=== PATIENT | female | born 1965 | race Hispanic/Latino ===

== ENCOUNTER 2019-02-12 01:03 | Inpatient (IN) | payer BC ==
[2019-02-12] VITALS (16 sets, daily range): BP systolic 78–156; BP diastolic 48–81
[~2019-02-12] VITALS: Ht 154.9 cm; Wt 69.9 kg
[2019-02-12] MEDS ORDERED: ACETAMINOPHEN 650 MG SUPP PR PRN (02:30)
[2019-02-12] MEDS ORDERED: XIGDUO (03:08)
[2019-02-12] MEDS ORDERED: vascepa (03:08)
[2019-02-12] MEDS ORDERED: LISINOPRIL2.5 MG PO (03:08)
[2019-02-12] MEDS ORDERED: ATORVASTATIN CA20 MG PO (03:08)
--- NOTE | 2019-02-12 03:14 | NUR ---
patient came from [facility], alert oriented but lethargic. daughter came with patient and ambulance staffs. left AC IV access and Maharaj cath in place. complained of left lower quadrant pain when she arrived. blood sugar checked was 156. daughter stated she could not hold any food or drink so far and she threw up every time she tries to eat. no skin breakdown noted. called Sparkle Fernandez [employer] as patient arrived, orders received.
[2019-02-12] MEDS: SODIUM CHLORIDE 0.9% 1000ML 1,000 ML IV SCH ×2 (03:30→16:35)
[2019-02-12 04:47] LABS: BASOPHILS # (AUTO) 0.1 (0.0-0.1); BASOPHILS % 0.5 % (0.0-1.0); EOSINOPHILS % 0.2 % (0.0-6.0); HEMATOCRIT 27.4 % (34.2-44.1); HEMOGLOBIN 9.4 g/dL (12.0-16.0); LYMPHOCYTES # (AUTO) 1.5 (1.0-3.2); LYMPHOCYTES % 6.3 % (18.0-39.1); MEAN CORPUSCULAR HEMOGLOBIN 28.1 pg (28-32); MEAN CORPUSCULAR HGB CONC 34.3 g/dL (31-35); MEAN CORPUSCULAR VOLUME 81.8 fL (81-99); MONOCYTES # (AUTO) 0.7 (0.2-0.8); NEUTROPHILS # (AUTO) 20.7 (2.1-6.9); NEUTROPHILS % 89.2 % (38.7-80.0); PLATELET COUNT 60 x10e3/uL (140-360); RED BLOOD COUNT 3.35 x10e6/uL (3.6-5.1); RED CELL DISTRIBUTION WIDTH 12.7 % (11.7-14.4)
[2019-02-12 05:11] LABS: ANION GAP 17.7 mmol/L (8-16); CALCIUM 7.8 mg/dL (8.4-10.2); CREATININE, SERUM 1.53 mg/dL (0.57-1.11); POTASSIUM 3.7 mmol/L (3.5-5.1)
[2019-02-12] MEDS: ONDANSETRON HCL INJ 2MG/ML 2ML 2 MG/ML VIAL IV PRN (06:01)
--- NOTE | 2019-02-12 07:00 | NUR ---
Renetta Fernandez NP called and gave orders. orders carried out.
[2019-02-12] MEDS ORDERED: MEROPENEM 500 MG VIAL ONE (09:16)
[2019-02-12] MEDS ORDERED: SODIUM CHLORIDE 0.9% 50ML 50 ML ONE (09:16)
[2019-02-12] MEDS: MEROPENEM 500MG/ NS 50ML 50 ML IV SCH ×3 (09:21→22:00)
--- NOTE | 2019-02-12 10:45 | NUR ---
PT COMPLAINS OF INCREASED NAUSEA AND VOMITING, NOTIFIED MD RECEIVED ORDERS
[2019-02-12] MEDS ORDERED: LANTUS 3ML100 UNITS/ SC (11:04)
[2019-02-12] MEDS: PROMETHAZINE 12.5MG/ NACL 0.9% 12.5 MG/50 ML BAG IV PRN (11:08)
--- NOTE | 2019-02-12 11:30 | NUR ---
SPOKE TO DANNY OLIVERA NOTIFIED OF PATIENT HR GOING FROM 130 TO 150'S, FEVER AND NAUSEA RECEIVED ORDERS WILL CONTINUE TO MONITOR CLOSELY
[2019-02-12] MEDS: METOPROLOL TARTRATE INJ 1 MG/ML VIAL IV PRN (11:57)
--- NOTE | 2019-02-12 13:23 | Diagnostic Imaging Report ---
EXAMINATION: CHEST SINGLE (PORTABLE) INDICATION: ^FEVER ^[id number] ^1255 COMPARISON: None FINDINGS: AP view TUBES and LINES: None. LUNGS: Lungs are well inflated. Diffuse bilateral reticulation of the lungs mainly in the posterior lung bases and perihilar region. PLEURA: No pleural effusion or pneumothorax. HEART AND MEDIASTINUM: The cardiomediastinal silhouette is unremarkable.. BONES AND SOFT TISSUES: No acute osseous lesion. Soft tissues are unremarkable. UPPER ABDOMEN: No free air under the diaphragm. IMPRESSION: Radiographic findings may represent bilateral atypical pneumonia in this patient with fever. Interstitial edema can have a similar appearance. Signed by: Dr. Anita Bush M.D. on 02/12/2019 1:19 PM
--- NOTE | 2019-02-12 14:09 | NUR ---
CONSULT CALLED FOR , CALL BACK REQUESTED SPOKE TO RE'NAN
--- NOTE | 2019-02-12 14:52 | Diagnostic Imaging Report ---
EXAM: CT Abdomen and Pelvis WITHOUT contrast INDICATION: ^ABD PAIN/ STONE PROTOCOL ^[id number] ^1320 COMPARISON: Chest radiograph 02/12/2019 TECHNIQUE: Abdomen and pelvis were scanned utilizing a multidetector helical scanner from the lung base to the pubic symphysis without administration of IV contrast. Absence of intravenous contrast decreases sensitivity for detection of focal lesions and vascular pathology. Coronal and sagittal reformations were obtained. Routine protocol was performed. IV CONTRAST: None. ORAL CONTRAST: Water RADIATION DOSE: Total DLP: 421.3 mGy*cm Estimated effective dose: (DLP x 0.015 x size factor) mSv COMPLICATIONS: None FINDINGS: LINES and TUBES: None. LOWER THORAX: Small bilateral pleural effusions. Bilateral interstitial edema. No consolidations or centrilobular nodules to suggest infection. HEPATOBILIARY: No focal hepatic lesions. No biliary ductal dilation. GALLBLADDER: No radio-opaque stones or sludge. No wall thickening. SPLEEN: No splenomegaly. PANCREAS: No focal masses or ductal dilatation. ADRENALS: No adrenal nodules KIDNEYS/URETERS: The right kidney is normal in size and density without hydronephrosis or calcified stones. There is swelling of the left kidney with associated mild hydroureteronephrosis. No calcified stones are visualized. GI TRACT: No abnormal distention, wall thickening, or evidence of bowel obstruction. Appendix is normal. PELVIC ORGANS/BLADDER: Maharaj catheter within a decompressed urinary bladder. LYMPH NODES: No lymphadenopathy. VESSELS: Unremarkable. PERITONEUM / RETROPERITONEUM: No free air. Small amount of low attenuation free fluid in the pelvis. BONES: Unremarkable. SOFT TISSUES: Diffuse anasarca. IMPRESSION: 1. Bilateral interstitial edema, small pleural effusions, small ascites and anasarca consistent with volume overload. 2. No findings to suggest infection in the lung bases. 3. Swelling of the left kidney with associated hydroureteronephrosis without visualized obstructing calcified stones. This may reflect infection. 4. The compressed gallbladder without containing calcified stones or wall thickening. Signed by: Dr. Anita Bush M.D. on 02/12/2019 2:49 PM
--- NOTE | 2019-02-12 18:48 | NUR ---
SPOKE TO REGARDING EPISODE OF PT HYPOTENSION AND TACHYCARDIA. RECEIVED ORDERS WILL CONTINUE TO MONITOR
[2019-02-12] MEDS ORDERED: SODIUM CHLORIDE 0.9% 1000ML 1,000 ML IV ONE (19:30)
[2019-02-12] MEDS ORDERED: MORPHINE SULFATE INJ 4 MG/ML INJ 1ML IV ONE (22:45)
[2019-02-12] MEDS ORDERED: MORPHINE SULFATE INJ 4 MG/ML INJ 1ML ONE (22:48)
--- NOTE | 2019-02-12 23:59 | Diagnostic Imaging Report ---
EXAM: HIDA Scan with Morphine Challenge INDICATION: Abdominal pain Report: Following the administration of 6 mCi of Tc-99m mebrofenin, dynamic images of the abdomen in the anterior projection were obtained through 60 minutes. Morphine sulfate 2 mg was administered intravenously and additional images were obtained through 30 minutes. Perfusion of the liver is normal. Extraction of tracer from the blood pool by the liver parenchyma is normal. Tracer appears promptly with in the biliary tract. Tracer is seen in the small bowel by approximately 20 minutes post injection of the tracer. The gallbladder does not fill during the initial 60 minutes of imaging but does fill following administration of morphine. Impression: Filling of the gallbladder excludes acute cystic duct obstruction/acute cholecystitis. Signed by: Dr. Clay Amaral MD on 02/12/2019 11:56 PM
[2019-02-13] VITALS (19 sets, daily range): BP systolic 77–151; BP diastolic 52–94
[2019-02-13] MEDS: MEROPENEM 500MG/ NS 50ML 50 ML IV SCH ×4 (03:27→22:11)
--- NOTE | 2019-02-13 05:42 | NUR ---
patient awaken, she able to eat an apple without complaining of nausea/vomiting. vitals within normal level, no distress noted.
[2019-02-13] MEDS ORDERED: DEXTROSE 50% SYRINGE 50 ML IV PRN (08:15)
[2019-02-13 08:22] LABS: BASOPHILS # (AUTO) 0.1 (0.0-0.1); BASOPHILS % 0.3 % (0.0-1.0); EOSINOPHILS % 0.1 % (0.0-6.0); HEMATOCRIT 27.2 % (34.2-44.1); HEMOGLOBIN 9.2 g/dL (12.0-16.0); LYMPHOCYTES # (AUTO) 1.4 (1.0-3.2); LYMPHOCYTES % 7.1 % (18.0-39.1); MEAN CORPUSCULAR HEMOGLOBIN 28.1 pg (28-32); MEAN CORPUSCULAR HGB CONC 33.8 g/dL (31-35); MEAN CORPUSCULAR VOLUME 83.2 fL (81-99); MONOCYTES # (AUTO) 1.2 (0.2-0.8); MONOCYTES % 5.8 % (4.4-11.3); NEUTROPHILS # (AUTO) 16.7 (2.1-6.9); NEUTROPHILS % 83.6 % (38.7-80.0); PLATELET COUNT 55 x10e3/uL (140-360); RED BLOOD COUNT 3.27 x10e6/uL (3.6-5.1); RED CELL DISTRIBUTION WIDTH 13.2 % (11.7-14.4)
[2019-02-13] MEDS: SODIUM CHLORIDE 0.9% 1000ML 1,000 ML IV SCH ×2 (08:36→19:30)
[2019-02-13 08:49] LABS: ANION GAP 17.3 mmol/L (8-16); CALCIUM 8.4 mg/dL (8.4-10.2); CREATININE, SERUM 1.04 mg/dL (0.57-1.11); POTASSIUM 3.3 mmol/L (3.5-5.1)
[2019-02-13 09:22] LABS: FERRITIN 745.62 ng/mL (4.63-204.00)
[2019-02-13] MEDS: INSULIN LISPRO 100 UNIT/1 ML 3ML VIAL SQ SCH ×3 (11:26→22:10)
[2019-02-13] MEDS ORDERED: MIDAZOLAM HCL 2 MG/2 ML VIAL ONE (12:17)
[2019-02-13 12:40] LABS: NEUTROPHILS % (MANUAL) 83 % (40-74)
[2019-02-13 12:41] LABS: BAND NEUTROPHILS % (MANUAL) 3 %; LYMPHOCYTES % (MANUAL) 9 % (19-48); MONOCYTES % (MANUAL) 4 % (3.4-9.0)
[2019-02-13 12:42] LABS: PLATELET ESTIMATE MODERATELY DECREASED; PLATELET MORPHOLOGY COMMENT NORMAL
[2019-02-13 12:43] LABS: BURR CELLS MODERATE; RBC MORPHOLOGY COMMENT ABNORMAL
[2019-02-13] MEDS ORDERED: POTASSIUM CHLORIDE 10MEQ EA PO ONE (13:00)
[2019-02-13] MEDS: ONDANSETRON HCL INJ 2MG/ML 2ML 2 MG/ML VIAL IV PRN (14:24)
[2019-02-13] MEDS ORDERED: BISACODYL 5 MG TAB EC PO ONE ×2 (15:00→15:30)
[2019-02-13] MEDS: ACETAMINOPHEN 325 MG TAB PO PRN (15:20)
--- NOTE | 2019-02-13 15:20 | NUR ---
PT COMPLAINED OF CHILLS TEMP AT 101.2 AT THIS TIME WILL MEDICATE ACCORDING TO MAR
[2019-02-13] MEDS: PROMETHAZINE 12.5MG/ NACL 0.9% 12.5 MG/50 ML BAG IV PRN (15:49)
[2019-02-13] MEDS: METOPROLOL TARTRATE INJ 1 MG/ML VIAL IV PRN (16:15)
--- NOTE | 2019-02-13 16:15 | NUR ---
HR 130-140 PT MEDICATED WITH WITH METOPROLOL WILL MONITOR CLOSELY
[2019-02-13] MEDS: METOCLOPRAMIDE HCL 10 MG/2ML VIAL IV SCH ×2 (16:32→22:11)
--- NOTE | 2019-02-13 16:32 | NUR ---
TEMP RECHECKED AT 101.4, PT WITH WORSENING CHILLS. DANNY HALL SUPERVISOR NOTIFIED OF PATIENT CONDITION , RECEIVED ORDERS.
--- NOTE | 2019-02-13 16:37 | Consultation ---
DATE OF CONSULTATION: 02/13/2019 Cardiology Consultation REASON FOR CONSULTATION: Tachycardia and hypotension. HISTORY OF PRESENT ILLNESS: Mrs. Razo is a 53-year-old female, who reports that she has feeling in great health, however, beginning on last week, she started experiencing left-sided abdominal pain in her left lower and left upper quadrant. For this reason, she went to a freestanding ER on Thursday and after that she was sent to the [facility] ER. She reports that at this moment, she does not have this pain since arriving and being initiated on antibiotics. The reason for our consultation is because she experienced tachycardia yesterday, rates reported to be in the 150s and also was hypotensive after with lowest blood pressure is in the 70s/40s. However, this all has improved after administration of an IV bolus of sodium chloride. She denies any cardiac history. Reports that she only has a pertinent past medical history of diabetes. At this moment, she denies any chest pain, she does endorse some occasional palpitations, denies fever or chills. Denies any nausea or vomiting at this time, however, had nausea and vomiting on and Thursday. Denies any abdominal pain or any other discomfort at this time. PAST MEDICAL HISTORY: Diabetes mellitus type 2, insulin dependent. PAST SURGICAL HISTORY: Three C-sections, hysterectomy due to fibroids. SOCIAL HISTORY: She is . Denies any smoking or illicit drug use. REVIEW OF SYSTEMS: Negative except as mentioned above. PHYSICAL EXAMINATION: VITAL SIGNS: Temperature 98.4, pulse 96, respiratory rate 21, blood pressure 121/69, and oxygen saturation 99% on room air. GENERAL: Alert and oriented x3, resting comfortably in bed, does not appear to be in any acute distress. NECK: Supple. No JVD noted. CARDIOVASCULAR: Regular rate and rhythm. Tachycardic. No murmurs. Normal S1, S2. LUNGS: Clear to auscultation in the upper lobes, diminished breath sounds bilaterally posterior lower bases. ABDOMEN: Soft, nontender. Normoactive bowel sounds. EXTREMITIES: Lower extremities, trace edema bilaterally. CARDIOVASCULAR MEDICATIONS: Metoprolol 2.5 mg q.6 hours p.r.n. for elevated heart rate. LABORATORY DATA: WBC 19.91, hemoglobin 9.2, hematocrit 27.2, platelets 55. Sodium 137, potassium 3.3, BUN 33, creatinine 1.04. BNP 309.6. CT of the abdomen and pelvis with bilateral interstitial edema and small pleural effusions, small ascites and anasarca consistent with volume overload. Swelling of the left kidney with associated hydroureteronephrosis without visualized obstructing calcified stone. Compressed gallbladder without containing calcified stones or wall thickening. Chest x-ray with findings consistent with atypical pneumonia in this patient with fever. HIDA scan with exclusion of acute cystic duct obstruction or acute cholecystitis. Echocardiogram with left ventricular ejection fraction of 58%, no other abnormalities. IMPRESSION: 1. Diabetes mellitus. 2. Tachycardia. 3. Sepsis. 4. Pneumoniae. 5. Thrombocytopenia. 6. Anemia. PLAN: Replace electrolytes. This patient will need ischemic workup as outpatient. Risk factors include age, gender, and also diabetes mellitus. This can wait until the patient has been discharged and has recovered from acute illness. Continue antimicrobial therapy per Infectious Disease and primary team. Maintain on telemetry at all time. Initiate a low-dose beta-angeilka and monitor blood pressure closely. We will continue to follow this patient closely. Thank you for this consultation and allowing us to participate in this patient's care. Dictated by Leonie Hills NP MD ALBERT Parker/REYNALDO /[id number]
[2019-02-13] MEDS ORDERED: FUROSEMIDE INJ 10 MG/ML 4 ML VIAL ONE (16:41)
[2019-02-13] MEDS ORDERED: ACETAMINOPHEN 1000 MG/100 ML IV ONE (17:00)
[2019-02-13] MEDS ORDERED: FENTANYL CITRATE INJ 2,000 MCG in SODIUM CHLORIDE 0.9% 250ML 210 ML IV PRN (17:15)
--- NOTE | 2019-02-13 17:15 | NUR ---
RAPID RESPONSE CALLED PT TO BE INTUBATED, RAPID TEAM AT BEDSIDE
--- NOTE | 2019-02-13 17:15 | NUR ---
PT IN RESP DISTRESS, LABORED BREATHING AND SOB ROUNDING ON PATIENT AT THIS TIME, RECEIVED ORDERS Addendum: 02/13/19 at 4 by Lita Pressley RN TIME AMEND TO 164
--- NOTE | 2019-02-13 17:25 | NUR ---
DANNY SENIOR COMMISSIONS ANALYST NOTIFIED OF PT STATUS
[2019-02-13 17:28] LABS: ABG HCO3 10 mmol/L (23-28); ABG PCO2 22 mmHg (41-51); ABG PH 7.24 (7.31-7.41); ABG PO2 52 mmHg (80-105)
[2019-02-13] MEDS ORDERED: FUROSEMIDE INJ 10 MG/ML 4 ML VIAL IV ONE (17:30)
[2019-02-13] MEDS: VANCOMYCIN 1GM/NS 250 ML 250 ML IV SCH (17:35)
[2019-02-13] MEDS ORDERED: PROPOFOL IV EMULSION 10MG/ML 100 ML ONE (17:50)
--- NOTE | 2019-02-13 17:57 | Diagnostic Imaging Report ---
Examination: Single AP view of the chest. COMPARISON: Portable chest 02/12/2019 INDICATION: Urosepsis, intubation IMPRESSION: 1. Lines and Tubes: Interval placement of endotracheal tube, which has distal tip at the entrance of the right main stem bronchus. Recommend retraction of at least 2 cm.. Interval placement of enteric tube which is noted below the left hemidiaphragm, however, tip is not visualized. 2. Bilateral diffuse interstitial opacities, may reflect interstitial edema. Left retrocardiac opacity and pleural effusion. 3. Cardiomediastinal silhouette is normal. Central pulmonary venous congestion. 4. No acute bony abnormalities. Signed by: Dr. Kennedy Zarate M.D. on 02/13/2019 5:53 PM
[2019-02-13] MEDS ORDERED: NOREPINEPHRINE 8 MG/D5W 250 ML 250 ML ONE (18:17)
[2019-02-13] MEDS: NOREPINEPHRINE 8 MG/D5W 250 ML 250 ML IV SCH (18:17)
--- NOTE | 2019-02-13 18:45 | NUR ---
RAPID RESPONSE CALLED, CENTRAL LINE PLACED
[2019-02-13] MEDS ORDERED: SODIUM CHLORIDE 0.9% 1000ML 1,000 ML IV SCH ×2 (19:15)
--- NOTE | 2019-02-13 19:23 | Consultation ---
DATE OF CONSULTATION: 02/13/2019 Pulmonary Critical Care Consultation CHIEF COMPLAINT: Sepsis and respiratory failure. HISTORY OF PRESENT ILLNESS: The patient is a 53-year-old woman. She has a history of diabetes. She noted some left-sided abdominal pain and fever later this week. She went to the Emergency Department, is found to have a pyelonephritis with a small amount of hydronephrosis. The patient was subsequently admitted to the hospital. She was started on IV antibiotics. A CT scan showed some hydronephrosis, but no visible stone. She continued on antibiotics, but her condition has worsened. She developed pulmonary edema and worsening oxygenation. She required intubation. PAST SURGICAL HISTORY: 1. Status post . 2. Status post hysterectomy. PAST MEDICAL HISTORY: Diabetes. SOCIAL HISTORY: The patient does not smoke. She does not drink. She is currently . ALLERGIES: THE PATIENT HAS NO KNOWN DRUG ALLERGIES. REVIEW OF SYSTEMS: The patient is afebrile. She has no headache. She has no neck pain. She is currently intubated. She did not have chest pain. She did have difficulty breathing. She had no abdominal pain. She had no nausea or vomiting. She had no leg edema. PHYSICAL EXAMINATION: VITAL SIGNS: The patient is afebrile. The blood pressure is 151/94 and the saturation is 100%. She is currently on Levophed as well as propofol. HEENT: Shows no facial swelling or erythema. The oral pharynx is normal. There is an oral endotracheal tube. CARDIAC: Reveals a regular rate and rhythm with normal S1, S2. LUNGS: Auscultation of lungs reveals crackles in both lung kerr. ABDOMEN: Soft, nontender. There is no rebound or guarding. EXTREMITIES: Show no leg edema or calf tenderness. There is no cyanosis or clubbing. SKIN: Shows no rashes. NEUROLOGICAL: Shows no focal abnormalities. RADIOGRAPHIC DATA: Chest x-ray shows bilateral pulmonary infiltrates. LABORATORY DATA: White blood cell count is 19.9 and hemoglobin is 9.2. The platelet count is 55. The BUN to creatinine ratio is 33:1.04 and the potassium is 3.3. The bicarbonate is 14. IMPRESSION: 1. Septic shock secondary to pyelonephritis, present on admission. 2. Acute respiratory failure. 3. Acute respiratory distress syndrome. 4. Anemia secondary to chronic blood loss. 5. Diabetes. PLAN: 1. Continue mechanical ventilation and repeat ABG. 2. Continue current antibiotics. The patient has been seen by ID. 3. Continue intravenous fluids. 4. Wean pressors as needed. 5. Monitor nutritional status. 6. DVT prophylaxis. 7. Case discussed with nursing staff, family, and Infectious Disease. MD ZOE Eugene/REYNALDO /[id number]
--- NOTE | 2019-02-13 19:39 | Diagnostic Imaging Report ---
EXAMINATION: CHEST XRAY LINE PLACEMENT COMPARISON: Chest x-ray 1733 hours INDICATION: Line placement ^CENTRAL LINE PLACEMENT ^[id number] ^1914 DISCUSSION: Frontal view of the chest obtained at 1924 hours. The upper chest is underexposed. The lung apices are not visible. HEART AND MEDIASTINUM: The heart is normal in size LINES: Endotracheal tube terminates approximately 3 cm above the jael. Left IJ catheter terminates in the SVC. Enteric tube extends past the diaphragm. LUNGS: Interstitial edema improved somewhat in the upper lung zones. Retrocardiac airspace disease is similar PLEURA: No pneumothorax on this image. Small pleural effusions are suspected BONES AND SOFT TISSUES: No focal osseous lesion. The soft tissues are normal. IMPRESSION: Suboptimal evaluation of the lung apices for pneumothorax. Support devices as described above. Improved interstitial edema in the upper lung zones. Signed by: Dr. Uriel Romano MD on 02/13/2019 7:36 PM
--- NOTE | 2019-02-13 19:53 | Consultation ---
DATE OF CONSULTATION: 02/13/2019 REASON FOR CONSULTATION: Sepsis. HISTORY OF PRESENT ILLNESS: This patient is 53-year-old female. Apparently, she has been sick for a few days. She went to the outside facility. The patient apparently was diagnosed with UTI and started on antibiotic, but she was not getting any better. She came here, she was transferred here. She is currently in the intensive care unit. The family is at the bedside, but when I walked in the patient was quite short of breath. Her heart rate is in 140s. She is breathing in the high 20s, could not finish a sentence. I immediately gave her Lasix after I got the history that she got 5 L two days ago. Her chest x-ray showed pulmonary edema. I ordered a stat blood gas. Consulted Dr. Rahman. Discussed the case with him over the phone. He is coming to see her, placed the patient on BiPAP. The patient seems to be a bit better now, more stable. The patient has history of diabetes mellitus type 2, history of insulin dependent diabetes mellitus, history of , hysterectomy. SOCIAL HISTORY: There is no smoking, drug abuse, or alcohol abuse. FAMILY HISTORY: Otherwise noncontributory. REVIEW OF SYSTEMS: She is short of breath. LABORATORY DATA: On admission white count is 23.2, hemoglobin 9.4, hematocrit 27, her platelet of 60. The patient had a pH of 7.2, her pCO2 of 22 and PO2 is 52. Sodium 133, potassium 3.3, creatinine 1.04, glucose 215. MEDICATION LIST: She is on meropenem. PHYSICAL EXAMINATION: GENERAL: After we put her on BiPAP and the Lasix patient seem a bit better and comfortable. However, she is on BiPAP now. A blood gas which was done just after the BiPAP was reviewed as mentioned above. She is a little bit apprehensive on BiPAP. HEENT: Normocephalic. NECK: Supple. CHEST: Few crackles at the bases. COR: S1, S2. No S3 or murmur. ABDOMEN: Soft. Bowel sounds present. EXTREMITIES: Trace edema. IMPRESSION: Sepsis septic shock. We will agree with meropenem. We will add Levaquin. We will add vancomycin. Obtain blood cultures. We will agree with respiratory support, may end up on ventilator. Reassess the patient again and we are going to intubate the patient. We will follow. MD KAROLYN Gates/REYNALDO /[id number]
--- NOTE | 2019-02-13 20:04 | NUR ---
CXR results called to KAMILLE Silva to use IJ.
[2019-02-13 20:56] LABS: BASOPHILS # (AUTO) 0.1 (0.0-0.1); BASOPHILS % 0.3 % (0.0-1.0); EOSINOPHILS % 0.1 % (0.0-6.0); HEMATOCRIT 29.8 % (34.2-44.1); HEMOGLOBIN 9.9 g/dL (12.0-16.0); LYMPHOCYTES # (AUTO) 1.3 (1.0-3.2); LYMPHOCYTES % 5.7 % (18.0-39.1); MEAN CORPUSCULAR HEMOGLOBIN 27.5 pg (28-32); MEAN CORPUSCULAR HGB CONC 33.2 g/dL (31-35); MEAN CORPUSCULAR VOLUME 82.8 fL (81-99); MONOCYTES # (AUTO) 1.9 (0.2-0.8); MONOCYTES % 7.9 % (4.4-11.3); NEUTROPHILS # (AUTO) 18.1 (2.1-6.9); NEUTROPHILS % 77.1 % (38.7-80.0); RED CELL DISTRIBUTION WIDTH 13.2 % (11.7-14.4)
[2019-02-13] MEDS: LEVOFLOXACIN 500MG/D5W 100ML 100 ML IV SCH (21:07)
[2019-02-13 21:12] LABS: CALCIUM 8.6 mg/dL (8.4-10.2); CREATININE, SERUM 1.04 mg/dL (0.57-1.11)
[2019-02-13 21:19] LABS: PLATELET COUNT 31 x10e3/uL (140-360)
[2019-02-13 21:24] LABS: ABG HCO3 13 mmol/L (23-28); ABG PCO2 27 mmHg (41-51); ABG PH 7.29 (7.31-7.41); ABG PO2 179 mmHg (80-105)
[2019-02-14] VITALS (57 sets, daily range): BP systolic 75–145; BP diastolic 44–90
[2019-02-14 01:30] LABS: BAND NEUTROPHILS % (MANUAL) 5 %; EOSINOPHILS % (MANUAL) 1 % (0-7); LYMPHOCYTES % (MANUAL) 4 % (19-48); MONOCYTES % (MANUAL) 9 % (3.4-9.0); MYELOCYTES % (MANUAL) 1 % (0-0); NEUTROPHILS % (MANUAL) 77 % (40-74); PROMYELOCYTES % (MANUAL) 1 % (0-0)
[2019-02-14 01:31] LABS: HYPOCHROMASIA SLIGHT; MICROCYTOSIS SLIGHT; PLATELET ESTIMATE MARKEDLY DECREASED; PLATELET MORPHOLOGY COMMENT NORMAL
[2019-02-14] MEDS ORDERED: SODIUM CHLORIDE 0.9% 250ML 250 ML ONE (02:34)
[2019-02-14] MEDS: MEROPENEM 500MG/ NS 50ML 50 ML IV SCH ×4 (03:36→20:40)
[2019-02-14 05:38] LABS: BASOPHILS # (AUTO) 0.1 (0.0-0.1); BASOPHILS % 0.3 % (0.0-1.0); EOSINOPHILS % 0.2 % (0.0-6.0); HEMATOCRIT 27.1 % (34.2-44.1); HEMOGLOBIN 8.7 g/dL (12.0-16.0); MEAN CORPUSCULAR HEMOGLOBIN 27.1 pg (28-32); MEAN CORPUSCULAR HGB CONC 32.1 g/dL (31-35); MEAN CORPUSCULAR VOLUME 84.4 fL (81-99); MONOCYTES % 10.9 % (4.4-11.3); NEUTROPHILS # (AUTO) 13.3 (2.1-6.9); NEUTROPHILS % 73.4 % (38.7-80.0); PLATELET COUNT 76 x10e3/uL (140-360); RED BLOOD COUNT 3.21 x10e6/uL (3.6-5.1); RED CELL DISTRIBUTION WIDTH 13.4 % (11.7-14.4)
[2019-02-14 05:57] LABS: ALBUMIN 1.8 g/dL (3.5-5.0); ALBUMIN/GLOBULIN RATIO 0.5 (0.8-2.0); ANION GAP 17.2 mmol/L (8-16); CALCIUM 8.3 mg/dL (8.4-10.2); CREATININE, SERUM 1.18 mg/dL (0.57-1.11); POTASSIUM 3.2 mmol/L (3.5-5.1)
--- NOTE | 2019-02-14 06:11 | Diagnostic Imaging Report ---
EXAMINATION: CHEST SINGLE (PORTABLE) COMPARISON: Chest x-ray 01/13/2019 INDICATION: Intubated ^Resp Failure ^[id number] ^0515 DISCUSSION: Frontal view of the chest obtained at 0515 hours. HEART AND MEDIASTINUM: The cardiomediastinal silhouette is unremarkable. LINES: Endotracheal tube terminates 3 to 4 cm above the jael. Left IJ catheter terminates in the SVC. Enteric tube extends past the diaphragm. LUNGS: Mild posterior bibasilar atelectasis. No pneumonia or pulmonary edema. PLEURA: No pleural effusion or pneumothorax. BONES AND SOFT TISSUES: No focal osseous lesion. The soft tissues are normal. IMPRESSION: Support devices as described above. No pneumothorax. Bibasilar atelectasis. Signed by: Dr. Uriel Romano MD on 02/14/2019 6:08 AM
[2019-02-14] MEDS: VANCOMYCIN 1GM/NS 250 ML 250 ML IV SCH (06:17)
[2019-02-14] MEDS ORDERED: PROPOFOL IV EMULSION 10MG/ML 100 ML IV PRN (06:30)
[2019-02-14] MEDS ORDERED: POTASSIUM CHLORIDE 20MEQ/15ML UDC NG STA (08:03)
[2019-02-14] MEDS ORDERED: FUROSEMIDE INJ 10 MG/ML 2 ML VIAL IV ONE (08:15)
[2019-02-14] MEDS: METOCLOPRAMIDE HCL 10 MG/2ML VIAL IV SCH ×4 (08:43→20:41)
[2019-02-14] MEDS: INSULIN LISPRO 100 UNIT/1 ML 3ML VIAL SQ SCH ×4 (08:45→20:42)
[2019-02-14] MEDS: ATENOLOL 50 MG TAB PO SCH (08:48)
[2019-02-14 09:02] LABS: LYMPHOCYTES % (MANUAL) 13 % (19-48); MONOCYTES % (MANUAL) 8 % (3.4-9.0); NEUTROPHILS % (MANUAL) 79 % (40-74)
[2019-02-14 09:03] LABS: PLATELET ESTIMATE MARKEDLY DECREASED; PLATELET MORPHOLOGY COMMENT NORMAL; RBC MORPHOLOGY COMMENT NORMAL; TOXIC GRANULATION SLIGHT
[2019-02-14] MEDS: ACETAMINOPHEN 325 MG TAB PO PRN (10:13)
--- NOTE | 2019-02-14 14:41 | Progress Note ---
DATE: 02/14/2019 SUBJECTIVE: The patient required emergent intubation last night. She remained on assist-control overnight. She had hypotension requiring initiation of Levophed. She received 2 L of fluid as well. She is less tachycardiac this morning and the Levophed has been decreased to 10 mcg. She remains on fentanyl at 200 mcg as well as some propofol. PHYSICAL EXAMINATION: VITAL SIGNS: The patient is afebrile. The blood pressure is 100/60 on Levophed at 10 mcg. Heart rate is 96. She is on assist-control mode of ventilation. HEENT: Shows no facial swelling or erythema. There is normal endotracheal tube. There is a left IJ line. The site looks clean. There is no drainage. CARDIAC: Reveals a regular rate and rhythm with a normal S1 and S2. There are no murmurs or rubs heard. LUNGS: Auscultation of lungs reveals rhonchorous breath sounds bilaterally. There is no wheezing. ABDOMEN: Soft, nontender. There is no rebound or guarding. EXTREMITIES: Show no leg edema or calf tenderness. There is no cyanosis or clubbing. SKIN: Shows no rashes. LABORATORY DATA: White blood cell count is 18 and hemoglobin is 8.7. The platelet count is 76. The BUN to creatinine ratio is 28 to 1.18 and the potassium is 3.2. IMPRESSION: 1. Septic shock secondary to pyelonephritis, present on admission. 2. Acute respiratory failure. 3. Thrombocytopenia. 4. Anemia secondary to chronic blood loss. 5. Diabetes. PLAN: 1. Hold sedation in preparation for spontaneous breathing trial. 2. Continue current antibiotics. 3. DVT prophylaxis. 4. Enteral feedings. 5. Monitor renal function. 6. Case discussed with , daughter, nursing staff and Eunice Marie NP. Greater than 35 minutes in direct critical care time. Alan Rahman MD [facility]/MODL /[id number]
[2019-02-14] MEDS ORDERED: ACETAMINOPHEN 1000 MG/100 ML IV PRN (15:00)
[2019-02-14] MEDS ORDERED: ACETAMINOPHEN 1000 MG/100 ML 100 ML IV PRN (15:15)
[2019-02-14] MEDS: LEVOFLOXACIN 500MG/D5W 100ML 100 ML IV SCH (16:17)
[2019-02-14] MEDS ORDERED: ALBUMIN 25% 25GM 100ML 0.25 GM/ML BTL IV ONE (16:45)
[2019-02-14 16:53] LABS: ABG HCO3 17 mmol/L (23-28); ABG PCO2 35 mmHg (41-51); ABG PO2 193 mmHg (80-105)
[2019-02-14] MEDS ORDERED: ALBUMIN 25% 25GM 100ML 200 ML IV ONE (17:00)
[2019-02-14] MEDS: NOREPINEPHRINE 8 MG/D5W 250 ML 250 ML IV SCH ×5 (19:09→23:46)
[2019-02-14] MEDS: INSULIN GLARGINE 100 UNITS/ML VIAL SQ SCH (20:42)
--- NOTE | 2019-02-14 20:53 | Progress Note ---
DATE: 02/14/2019 Cardiology Progress Note SUBJECTIVE: The patient is still intubated, sedated, however, she is alert. OBJECTIVE: VITAL SIGNS: Heart rate is 78, respirations are 11, blood pressure is 109/65, and oxygen saturation is 100%. GENERAL: Well appearing, well built, no apparent distress. Alert and oriented x2. ENT: Oropharynx, she has an ET tube present. CARDIOVASCULAR: Regular rate and rhythm. LUNGS: Clear to auscultation. ABDOMEN: Soft, nontender, and nondistended. LABORATORY DATA: Reviewed. Left ventricular ejection fraction of 55%-60%. IMPRESSION: 1. Tachycardia. 2. Sepsis. 3. Pyelonephritis. 4. Thrombocytopenia. 5. Anemia. RECOMMENDATIONS: Continue current cardiovascular medications and treatment per Critical Care. No active cardiac issues ongoing at this point in time. We will continue to monitor closely on telemetry. DO GRACIELA Erazo/MODDeonna /[id number]
[2019-02-14] MEDS ORDERED: INSULIN GLARGINE U SC SCH (21:00)
[2019-02-15] VITALS (25 sets, daily range): BP systolic 101–154; BP diastolic 55–76
[2019-02-15] MEDS: NOREPINEPHRINE 8 MG/D5W 250 ML 250 ML IV SCH ×3 (01:10→03:17)
[2019-02-15] MEDS: MEROPENEM 500MG/ NS 50ML 50 ML IV SCH ×4 (04:22→20:27)
[2019-02-15 05:07] LABS: BASOPHILS % 0.2 % (0.0-1.0); EOSINOPHILS # (AUTO) 0.2 (0.0-0.4); EOSINOPHILS % 1.4 % (0.0-6.0); HEMOGLOBIN 7.5 g/dL (12.0-16.0); LYMPHOCYTES # (AUTO) 1.4 (1.0-3.2); LYMPHOCYTES % 10.7 % (18.0-39.1); MEAN CORPUSCULAR HEMOGLOBIN 27.9 pg (28-32); MEAN CORPUSCULAR HGB CONC 34.1 g/dL (31-35); MEAN CORPUSCULAR VOLUME 81.8 fL (81-99); MONOCYTES # (AUTO) 1.2 (0.2-0.8); MONOCYTES % 9.1 % (4.4-11.3); NEUTROPHILS # (AUTO) 9.8 (2.1-6.9); NEUTROPHILS % 75.7 % (38.7-80.0); RED BLOOD COUNT 2.69 x10e6/uL (3.6-5.1); RED CELL DISTRIBUTION WIDTH 13.7 % (11.7-14.4)
[2019-02-15 05:22] LABS: PLATELET COUNT 46 x10e3/uL (140-360)
[2019-02-15 05:36] LABS: ALANINE AMINOTRANSFERASE 105 IU/L (0-55); ALBUMIN 2.4 g/dL (3.5-5.0); ALBUMIN/GLOBULIN RATIO 0.9 (0.8-2.0); ALKALINE PHOSPHATASE 217 IU/L (40-150); ANION GAP 13.8 mmol/L (8-16); BLOOD UREA NITROGEN 23 mg/dL (7-26); BUN/CREATININE RATIO 25 (6-25); CALCIUM 8.3 mg/dL (8.4-10.2); CARBON DIOXIDE 18 mmol/L (22-29); CHLORIDE 109 mmol/L (98-107); CREATININE, SERUM 0.91 mg/dL (0.57-1.11); EST GLOMERULAR FILTRATION RATE > 60 ML/MIN (60-); GLUCOSE 166 mg/dL (74-118); SODIUM 138 mmol/L (136-145)
[2019-02-15 06:01] LABS: POTASSIUM 2.8 mmol/L (3.5-5.1)
--- NOTE | 2019-02-15 06:04 | Diagnostic Imaging Report ---
Examination: Single AP view of the chest. COMPARISON: 02/14/2019 INDICATION: Respiratory failure DISCUSSION: Lines/tubes: Endotracheal tube with distal tip approximately 2.5 cm from the jael. Left IJ catheter with tip overlying the cavoatrial junction. Lungs: Mild lung base atelectasis. Pleura: There is no pleural effusion or pneumothorax. Heart and mediastinum: The heart and the mediastinum are unremarkable. Bones and soft tissues: No acute bony abnormalities. Degenerative changes in the thoracic spine. IMPRESSION: Lung base atelectasis Signed by: Dr. Jose Mckenzie M.D. on 02/15/2019 6:00 AM
[2019-02-15] MEDS ORDERED: POTASSIUM CHLORIDE 20MEQ/100ML 300 ML IV ONE (07:30)
[2019-02-15] MEDS ORDERED: MAGNESIUM SULF 1GRAM/DEXTROSE 100 ML IV ONE (08:00)
--- NOTE | 2019-02-15 08:36 | Progress Note ---
DATE: 02/15/2019 Pulmonary Critical Care Progress Note. SUBJECTIVE: The patient diuresed 1800 mL yesterday. She was placed on spontaneous breathing trial this morning and is tolerating it well. She is breathing about 15 times a minute with tidal volumes of 350 to 400 mL. She is weaned off the pressors. PHYSICAL EXAMINATION: VITAL SIGNS: The patient is afebrile. The patient did have a temperature of 100.3 last night. HEENT: Shows no facial swelling or erythema. The patient has an oral endotracheal tube in place. There is a left IJ line in place, the site looks clean. There is no drainage. CARDIAC: Reveals regular rate and rhythm with a normal S1 and S2. There are no murmurs or rubs. LUNGS: Auscultation of lungs reveals crackles at both bases. There is no wheezing. ABDOMEN: Soft, nontender. There is no rebound or guarding. EXTREMITIES: Show no leg edema or calf tenderness. There is no cyanosis or clubbing. SKIN: Shows no rashes. IMPRESSION: 1. Acute respiratory failure. 2. Pyelonephritis with septic shock, present on admission. 3. Anemia secondary to chronic blood loss. 4. Thrombocytopenia. 5. Hypokalemia. PLAN: 1. Repeat ABG and work towards extubation. 2. Continue current antibiotics. 3. Hematology-oncology to evaluate the patient for pancytopenia. 4. Continue to monitor electrolytes and bicarbonate. Alan Rahman MD [facility]/LUIG[facility] /[id number]
[2019-02-15] MEDS: METOCLOPRAMIDE HCL 10 MG/2ML VIAL IV SCH ×4 (08:42→20:27)
[2019-02-15] MEDS: ATENOLOL 50 MG TAB PO SCH (08:43)
[2019-02-15] MEDS: INSULIN LISPRO 100 UNIT/1 ML 3ML VIAL SQ SCH ×4 (08:44→20:28)
[2019-02-15 10:59] LABS: ABG HCO3 18 mmol/L (23-28); ABG PCO2 34 mmHg (41-51); ABG PH 7.34 (7.31-7.41); ABG PO2 174 mmHg (80-105)
--- NOTE | 2019-02-15 14:21 | NUR ---
DISCUSSED IN BARRIER ROUNDS, PT EXTUBATED AT 8AM, ON CLEAR LIQUIDS TODAY, ON IV ABX. PLAN IS TO DOWNGRADE TO FLOOR TOMORROW.
[2019-02-15] MEDS: INSULIN GLARGINE 100 UNITS/ML VIAL SQ SCH (20:29)
[2019-02-15] MEDS: ONDANSETRON HCL INJ 2MG/ML 2ML 2 MG/ML VIAL IV PRN (22:10)
[2019-02-16] VITALS (12 sets, daily range): BP systolic 90–141; BP diastolic 44–75
[2019-02-16] MEDS: MEROPENEM 500MG/ NS 50ML 50 ML IV SCH ×4 (02:53→20:30)
[2019-02-16 04:13] LABS: BASOPHILS % 0.2 % (0.0-1.0); EOSINOPHILS # (AUTO) 0.2 (0.0-0.4); HEMOGLOBIN 7.8 g/dL (12.0-16.0); LYMPHOCYTES # (AUTO) 1.3 (1.0-3.2); MEAN CORPUSCULAR HEMOGLOBIN 28.2 pg (28-32); MEAN CORPUSCULAR HGB CONC 34.8 g/dL (31-35); MEAN CORPUSCULAR VOLUME 80.9 fL (81-99); MONOCYTES # (AUTO) 0.7 (0.2-0.8); MONOCYTES % 4.4 % (4.4-11.3); NEUTROPHILS # (AUTO) 13.1 (2.1-6.9); PLATELET COUNT 83 x10e3/uL (140-360); RED BLOOD COUNT 2.77 x10e6/uL (3.6-5.1); RED CELL DISTRIBUTION WIDTH 13.3 % (11.7-14.4)
[2019-02-16 04:18] LABS: HEMATOCRIT 22.4 % (34.2-44.1)
[2019-02-16 04:32] LABS: ANION GAP 17.9 mmol/L (8-16); BLOOD UREA NITROGEN 16 mg/dL (7-26); BUN/CREATININE RATIO 22 (6-25); CALCIUM 8.1 mg/dL (8.4-10.2); CARBON DIOXIDE 16 mmol/L (22-29); CHLORIDE 102 mmol/L (98-107); CREATININE, SERUM 0.72 mg/dL (0.57-1.11); EST GLOMERULAR FILTRATION RATE > 60 ML/MIN (60-); GLUCOSE 153 mg/dL (74-118); MAGNESIUM 1.2 MG/DL (1.3-2.1); SODIUM 133 mmol/L (136-145)
[2019-02-16 04:35] LABS: POTASSIUM 2.9 mmol/L (3.5-5.1)
[2019-02-16] MEDS ORDERED: POTASSIUM CHLORIDE 20 MEQ TAB CR PO STA (04:48)
[2019-02-16] MEDS: METOPROLOL TARTRATE INJ 1 MG/ML VIAL IV PRN (05:31)
[2019-02-16] MEDS: ACETAMINOPHEN 325 MG TAB PO PRN (05:32)
--- NOTE | 2019-02-16 06:28 | NUR ---
Notified Dr Galvan answering service about the hematology consult.nora donato denies any concerns this james
[2019-02-16] MEDS ORDERED: MAGNESIUM SULFATE 2GM/50ML 50 ML IV ONE (07:00)
[2019-02-16] MEDS: ATENOLOL 50 MG TAB PO SCH ×2 (08:30→09:30)
[2019-02-16] MEDS: INSULIN LISPRO 100 UNIT/1 ML 3ML VIAL SQ SCH ×4 (08:30→20:50)
[2019-02-16 09:17] LABS: FERRITIN 328.44 ng/mL (4.63-204.00)
[2019-02-16] MEDS: METOCLOPRAMIDE HCL 10 MG/2ML VIAL IV SCH ×4 (09:19→20:30)
[2019-02-16] MEDS: POTASSIUM CHLORIDE 20 MEQ TAB CR PO SCH ×2 (09:30→09:33)
--- NOTE | 2019-02-16 14:00 | NUR ---
Received pt from ICU at this time. Pt is aox4 and able to verbalize needs mostly in wolof. Pt is able to ambulate short distances. Order has been placed for PT/OT eval and treat. Left IJ in place and dressing is dry and intact. Pt denies any pain at this time.
[2019-02-16] MEDS: ONDANSETRON HCL INJ 2MG/ML 2ML 2 MG/ML VIAL IV PRN (15:49)
[2019-02-16] MEDS ORDERED: SODIUM CHLORIDE 0.9% 250ML 250 ML ONE (16:00)
--- NOTE | 2019-02-16 16:53 | Progress Note ---
DATE: 02/16/2019 SUBJECTIVE: The patient was transferred out of the Intensive Care Unit yesterday. She is not having difficulty breathing. She is not having fevers. She does not complain of chest pain. PHYSICAL EXAMINATION: VITAL SIGNS: Stable. HEENT: Shows no facial swelling or erythema. CARDIAC: Reveals regular rate and rhythm with normal S1 and S2. There are no murmurs or rubs heard. LUNGS: Auscultation of lungs shows clear breath sounds bilaterally. There is no wheezing. ABDOMEN: Soft, nontender. There is no rebound or guarding. EXTREMITIES: Show no leg edema or calf tenderness. IMPRESSION: 1. Anemia secondary to chronic blood loss. 2. Thrombocytopenia. 3. Septic shock secondary to pyelonephritis, present on admission. 4. Diabetes. PLAN: 1. Continue antibiotics. 2. Monitor platelet count. 3. Evaluation for microcytic anemia. 4. Continue to monitor renal function. Alan Rahman MD [facility]/MODL /[id number]
--- NOTE | 2019-02-16 20:05 | NUR ---
PATIENT COMPLAINED OF SHORTNESS OF BREATH AND A BURNING SENSATION IN HER STOMACH. CALLED DR. QIUROGA'S OFFICE FOR ORDERS TO START NEB TREATMENTS FOR PATIENT. ORDERS WERE PUT IN AND PATIENT WAS GIVEN REGLAN FOR STOMACH PAIN. PATIENT IS ALSO ON O2 NASAL CANNULA ON 2L. FAMILY MEMBERS ARE PRESENT, BED LOCKED AND LOW, CALL LIGHT WITHIN REACH, WILL CONTINUE TO MONITOR.
[2019-02-16] MEDS: INSULIN GLARGINE 100 UNITS/ML VIAL SQ SCH (20:50)
--- NOTE | 2019-02-16 21:20 | NUR ---
PATIENT VOICED THAT THE MEDICATION FOR HER STOMACH MADE HER FEEL BETTER. NO SIGNS OF DISTRESS OR PAIN, WILL CONTINUE TO MONITOR.
[2019-02-16] MEDS ORDERED: CALCIUM CARBONATE 500 MG CHEWABLE TABS PO STA (23:58)
[2019-02-16] MEDS ORDERED: PANTOPRAZOLE 40 MG 10ML VIAL IV STA (23:58)
[2019-02-17] VITALS (7 sets, daily range): BP systolic 115–143; BP diastolic 55–65
[2019-02-17] MEDS ORDERED: SUCRALFATE 1 GM TAB PO PRN
[2019-02-17] MEDS ORDERED: CALCIUM CARBONATE 500 MG CHEWABLE TABS PO PRN
--- NOTE | 2019-02-17 00:15 | NUR ---
PATIENT COMPLAINED OF BURNING SENSATION IN STOMACH. STATED THAT EARLIER MEDICATION HAD HELPED BUT ONLY TEMPORARILY. CALLED DR. QUIROGA'S OFFICE AND WAS TOLD TO PUT IN ORDERS FOR PROTONIX AND TUMS. PATIENT RECEIVED MEDICATION, BED IS LOW, CALL LIGHT WITHIN EASY REACH, WILL CONTINUE TO MONITOR.
--- NOTE | 2019-02-17 01:30 | NUR ---
PATIENT COMPLAINED OF CHILLS AND FELT SLIGHTLY WARM. CHECKED PATIENT'S TEMPERATURE AND IT READ 99.8, CAME BACK 15 MINUTES LATER AND TEMPERATURE HAD RISEN TO 100.7. GAVE TYLENOL TO PATIENT AND CALLED DR. QUIROGA'S OFFICE FOR ORDERS TO HAVE BLOOD CULTURES TAKEN. WILL CONTINUE TO MONITOR.
[2019-02-17] MEDS: ACETAMINOPHEN 325 MG TAB PO PRN (01:43)
--- NOTE | 2019-02-17 02:30 | NUR ---
SIGNS OF CHILLS HAVE CEASED FROM THE PATIENT. SHE IS RESTING COMFORTABLY BOTH EYES CLOSED, BED IN LOWEST POSITION, FAMILY MEMBER PRESENT, CALL LIGHT WITHIN REACH WILL CONTINUE TO MONITOR.
[2019-02-17] MEDS: MEROPENEM 500MG/ NS 50ML 50 ML IV SCH (03:20)
--- NOTE | 2019-02-17 03:45 | NUR ---
BLOOD CULTURES WERE TAKEN FOR PATIENT WILL CONTINUE TO MONITOR.
[2019-02-17 05:08] LABS: BASOPHILS % 0.2 % (0.0-1.0); EOSINOPHILS # (AUTO) 0.2 (0.0-0.4); EOSINOPHILS % 1.1 % (0.0-6.0); HEMOGLOBIN 7.2 g/dL (12.0-16.0); LYMPHOCYTES # (AUTO) 1.2 (1.0-3.2); LYMPHOCYTES % 6.5 % (18.0-39.1); MEAN CORPUSCULAR HEMOGLOBIN 27.4 pg (28-32); MEAN CORPUSCULAR HGB CONC 34.3 g/dL (31-35); MEAN CORPUSCULAR VOLUME 79.8 fL (81-99); MONOCYTES # (AUTO) 0.9 (0.2-0.8); MONOCYTES % 4.9 % (4.4-11.3); NEUTROPHILS # (AUTO) 15.1 (2.1-6.9); NEUTROPHILS % 84.4 % (38.7-80.0); PLATELET COUNT 101 x10e3/uL (140-360); RED BLOOD COUNT 2.63 x10e6/uL (3.6-5.1); RED CELL DISTRIBUTION WIDTH 13.2 % (11.7-14.4)
[2019-02-17 05:30] LABS: ANION GAP 12.8 mmol/L (8-16); BLOOD UREA NITROGEN 13 mg/dL (7-26); BUN/CREATININE RATIO 19 (6-25); CALCIUM 8.2 mg/dL (8.4-10.2); CARBON DIOXIDE 18 mmol/L (22-29); CHLORIDE 102 mmol/L (98-107); CREATININE, SERUM 0.69 mg/dL (0.57-1.11); EST GLOMERULAR FILTRATION RATE > 60 ML/MIN (60-); GLUCOSE 152 mg/dL (74-118); MAGNESIUM 1.4 MG/DL (1.3-2.1); SODIUM 130 mmol/L (136-145)
[2019-02-17] MEDS ORDERED: LORAZEPAM INJ 2 MG/ML VIAL IV PRN (05:30)
[2019-02-17] MEDS ORDERED: SODIUM CHLORIDE 0.9% 250ML 250 ML IV ONE (05:30)
[2019-02-17 05:36] LABS: POTASSIUM 2.8 mmol/L (3.5-5.1)
[2019-02-17] MEDS ORDERED: POTASSIUM CHLORIDE 20 MEQ TAB CR PO STA (05:37)
--- NOTE | 2019-02-17 05:39 | NUR ---
TOOK A CALL FROM LAB AND THEY REPORTED THE PATIENT'S HGB IS 7.2, HCT 21, AND POTASSIUM IS 2.8. SPOKE WITH DANNY REGARDING THOSE LABS AND ORDERS ARE BEING DONE. WILL CONTINUE TO MONITOR THE SITUATION.
[2019-02-17] MEDS: METOCLOPRAMIDE HCL 10 MG/2ML VIAL IV SCH ×4 (09:17→21:34)
[2019-02-17] MEDS: PANTOPRAZOLE SOD 40 MG TABEC PO SCH ×2 (09:17→17:09)
[2019-02-17] MEDS: POTASSIUM CHLORIDE 20 MEQ TAB CR PO SCH (09:26)
[2019-02-17] MEDS: ATENOLOL 50 MG TAB PO SCH (09:27)
[2019-02-17] MEDS: INSULIN LISPRO 100 UNIT/1 ML 3ML VIAL SQ SCH ×4 (09:28→21:47)
[2019-02-17] MEDS: CEFTRIAXONE SOD 1 GM/NS 50 ML 50 ML IV SCH (10:02)
[2019-02-17] MEDS: IRON SUCROSE 100 MG in SODIUM CHLORIDE 0.9% 100 ML 100 ML IV SCH (10:58)
--- NOTE | 2019-02-17 11:13 | Progress Note ---
DATE: 02/17/2019 SUBJECTIVE: The patient still has some cough. She complains of some mild epigastric pain. She has not noticed any hematochezia or hematemesis. PHYSICAL EXAMINATION: VITAL SIGNS: The blood pressure is 116/63 and the pulse is 88. The respiratory rate is 20. HEENT: Shows no facial swelling or erythema. CARDIAC: Reveals a regular rate and rhythm with normal S1, S2. There are no murmurs or rubs. LUNGS: Auscultation of lungs reveals clear breath sounds bilaterally. There is no wheezing. ABDOMEN: Soft, nontender. There is no rebound or guarding. EXTREMITIES: There is no leg edema or calf tenderness. IMPRESSION: 1. Microcytic anemia secondary to chronic blood loss. 2. Epigastric discomfort. 3. Septic shock secondary to pyelonephritis, present on admission. 4. Diabetes. 5. Thrombocytopenia. PLAN: 1. The patient is scheduled to receive packed red blood cells today. 2. Consider GI consultation. 3. Monitor renal function. 4. Continue antibiotics. Alan Rahman MD [facility]/MODL /[id number]
[2019-02-17 11:45] LABS: EOSINOPHILS % (MANUAL) 2 % (0-7); LYMPHOCYTES % (MANUAL) 6 % (19-48); METAMYELOCYTES % (MANUAL) 1 % (0-0); MONOCYTES % (MANUAL) 4 % (3.4-9.0); MYELOCYTES % (MANUAL) 1 % (0-0); NEUTROPHILS % (MANUAL) 86 % (40-74)
[2019-02-17 11:46] LABS: ANISOCYTOSIS SLIGHT; HYPOCHROMASIA SLIGHT; PLATELET ESTIMATE SLIGHTLY DECREASED; PLATELET MORPHOLOGY COMMENT NORMAL; RBC MORPHOLOGY COMMENT NORMAL
[2019-02-17] MEDS ORDERED: POTASSIUM CHLORIDE 20 MEQ TAB CR PO SCH (12:00)
[2019-02-17 12:39] LABS: BASOPHILS # (AUTO) 0.1 (0.0-0.1); BASOPHILS % 0.3 % (0.0-1.0); EOSINOPHILS # (AUTO) 0.3 (0.0-0.4); EOSINOPHILS % 1.5 % (0.0-6.0); HEMATOCRIT 25.6 % (34.2-44.1); HEMOGLOBIN 8.4 g/dL (12.0-16.0); LYMPHOCYTES # (AUTO) 1.4 (1.0-3.2); LYMPHOCYTES % 7.1 % (18.0-39.1); MEAN CORPUSCULAR HEMOGLOBIN 27.5 pg (28-32); MEAN CORPUSCULAR HGB CONC 32.8 g/dL (31-35); MEAN CORPUSCULAR VOLUME 83.7 fL (81-99); MONOCYTES # (AUTO) 1.1 (0.2-0.8); MONOCYTES % 5.8 % (4.4-11.3); NEUTROPHILS # (AUTO) 15.8 (2.1-6.9); NEUTROPHILS % 82.3 % (38.7-80.0); PLATELET COUNT 79 x10e3/uL (140-360); RED BLOOD COUNT 3.06 x10e6/uL (3.6-5.1); RED CELL DISTRIBUTION WIDTH 13.4 % (11.7-14.4)
--- NOTE | 2019-02-17 13:27 | NUR ---
Notified CHAR FILTER OPERATOR for Dr. Arce of increase of hgb level and received orders to hold blood for now.
--- NOTE | 2019-02-17 13:33 | Consultation ---
DATE OF CONSULTATION: 02/17/2019 REASON FOR CONSULTATION: Thrombocytopenia. HISTORY OF PRESENT ILLNESS: She is a 53-year-old female with a history of diabetes, admitted through emergency at [facility] ER and finally transferred to [facility]. She was presented to emergency with left-sided abdominal pain and left upper quadrant pain, initial impression of pyelonephritis. She was hypertensive, tachycardic, and transferred to [facility] for further management. Admission blood work shows hemoglobin was 9, white cell count was 19, platelet count 55. Kidney function was normal. CT scan did not show any liver or spleen abnormality. X-ray was consistent with atypical pneumonia. She was admitted to continuation of antibiotic. Hospital course was complicated with persistent thrombocytopenia. The patient also had worsening anemia with hemoglobin dropped to 7.5 with microcytosis. No evidence of any active bleeding noted. The patient continued on antibiotic including meropenem. Clinical condition has improved. PAST MEDICAL HISTORY: Includes diabetes. PAST SURGICAL HISTORY: Hysterectomy. SOCIAL HISTORY: She is . No alcohol or drugs. REVIEW OF SYSTEMS: Negative. PHYSICAL EXAMINATION: GENERAL: Alert, awake, communicative, mild distress. HEENT: Normocephalic, atraumatic. Sclerae pale. Conjunctivae clear. NECK: Supple. CHEST: Decreased breath sounds at bases. CARDIOVASCULAR: Regular rate and rhythm. ABDOMEN: Soft. EXTREMITIES: No edema. SKIN: Intact. BORING AND FILLING MACHINE OPERATOR: Grossly intact. LABS AND IMAGING: Reviewed. ASSESSMENT AND PLAN: The patient with history of diabetes, currently in hospital with pyelonephritis. The patient had anemia and thrombocytopenia. Thrombocytopenia. The patient's admission platelet count was low. Possibility of sepsis with DIC and the possibility of immune thrombocytopenia. We will monitor platelet count to see platelet trend. In case of worsening thrombocythemia, might consider starting the patient on steroid or if the platelet count continue to get better, we will continue to monitor closely without any intervention. No evidence of any active bleeding. Continue to observe the patient count closely. Anemia. Recommendation to complete anemia evaluation. Further recommendation and treatment as per workup. Blood transfusion if hemoglobin dropped below 7. We will monitor the patient. Acute respiratory failure. The patient required intubation. Currently extubated, doing okay and condition is improving. Continue remaining care. We will follow the patient closely. MD SÁNCHEZ Steele/REYNALDO /[id number]
--- NOTE | 2019-02-17 15:40 | NUR ---
Nutrition Intervention Note RD Recommendation(s) for Physician: -NPO/ clear liquid x 4 days, rec to advance diet as tolerated -Rec Ensure Clear TID to increase protein-calorie intake Plan of Care: RD following, monitoring for tolerance and adequacy, ONS rec Nutrition reason for involvement: NPO/ clear liquid x [address] Assessment 02/17- 53yo F, who was admitted for abdominal pain. Visited pt in the room. Pt reported feeling nausea and vomited when taking potassium tablet this morning. Pt reports of stomach burning when taking medications. However, pt is able to tolerate clear liquid diet without any issue. Pt complains of diarrhea and stool culture is pending. Her UBW is ~130lbs. No sign of muscle/ fat loss noted. RD offered Ensure Clear to increase protein calorie intake to increase protein-calorie intake and pt was agreeable. Will continue to monitor and follow. Principal Problems/Diagnoses: pyelonephritis, urosepsis PMH: diabetes GI: abdomen soft, round, flatus present, BM 02/17 Skin: no pressure wound noted Labs: (02/17) Na 130 L, K 2.8 L, Glucose 193 H, Ca 8.2 L Meds: insulin, reglan, KCl, protonix Ht: 61in Wt: 153lb BMI: 28.9kg/m2 IBW: 105lb Malnutrition Evaluation (02/17/19) The patient does not meet criteria for a specified degree of malnutrition at this time. Will re-evaluate at follow-up as appropriate. Nutrition Prescription (Diet Order): clear liquid diet Estimated Nutritional Needs: Calories: 1475 1770kcal(25-30kcal/kg/d) Weight used: UBW Protein: 59 89g (1-1.5g/kg/d) Weight used: UBW Diet Adequacy: Not meeting calorie needs, Not meeting protein needs Diet Education Needs Assessment: Diet education indicated, but patient not appropriate for education at this time. Nutrition Care Level: mod Nutrition Diagnosis: Inadequate energy intake related to current medical status as evidenced by NPO/ clear liquid x 4 days. Goal: Patient will meet 75-100% of estimated needs by follow up Progress: Not Progressing Interventions: Modified diet, Commercial beverage Monitoring/Evaluation: Total energy intake, Total protein intake, Modified diet, Liquid supplement, Weight change Signed: Trish Gipson, , RD, LD
--- NOTE | 2019-02-17 19:12 | NUR ---
Beside report walking rounds complete. Pt resting in bed and in no apparent distress. Pt daughter at bedside. Pt on O2 and tele. All safety measures ensured and pt call bajwa near. Pt daughter to stay overnight.
[2019-02-17] MEDS: INSULIN GLARGINE 100 UNITS/ML VIAL SQ SCH (21:47)
[2019-02-18] VITALS (8 sets, daily range): BP systolic 97–136; BP diastolic 51–70
--- NOTE | 2019-02-18 00:20 | NUR ---
Pt temp 100.6 . Pt asymptomatic with no complaints. Extra blanket removed and temp adjusted. Will continue to monitor pt and recheck temp
[2019-02-18] MEDS: ACETAMINOPHEN 325 MG TAB PO PRN (01:43)
--- NOTE | 2019-02-18 01:46 | NUR ---
Pt repeat temp 101.0. Pt has no complaints. Pt given Tylenol 650mg po. Temp in room adjusted again. Will continue to monitor pt and recheck temp.
--- NOTE | 2019-02-18 03:05 | NUR ---
Pt repeat temp 99.7. Pt states she feels " cold" but no other symptoms present. Will continue to monitor.
[2019-02-18 03:57] LABS: BASOPHILS % 0.2 % (0.0-1.0); EOSINOPHILS # (AUTO) 0.4 (0.0-0.4); EOSINOPHILS % 2.2 % (0.0-6.0); LYMPHOCYTES # (AUTO) 1.4 (1.0-3.2); LYMPHOCYTES % 7.9 % (18.0-39.1); MEAN CORPUSCULAR HEMOGLOBIN 27.6 pg (28-32); MEAN CORPUSCULAR HGB CONC 34.1 g/dL (31-35); MEAN CORPUSCULAR VOLUME 80.7 fL (81-99); MONOCYTES # (AUTO) 1.3 (0.2-0.8); MONOCYTES % 7.2 % (4.4-11.3); NEUTROPHILS # (AUTO) 14.2 (2.1-6.9); NEUTROPHILS % 79.6 % (38.7-80.0); PLATELET COUNT 135 x10e3/uL (140-360); RED BLOOD COUNT 2.54 x10e6/uL (3.6-5.1); RED CELL DISTRIBUTION WIDTH 13.2 % (11.7-14.4)
[2019-02-18 04:02] LABS: HEMATOCRIT 20.5 % (34.2-44.1)
--- NOTE | 2019-02-18 04:08 | NUR ---
Lab called to report pt H/H 7.0 and 20.5. Questions about blood source and informed drawn from central line. Lab stated would redrawn pt with needle stick to compare.
[2019-02-18 04:15] LABS: ANION GAP 11.2 mmol/L (8-16); BLOOD UREA NITROGEN 10 mg/dL (7-26); BUN/CREATININE RATIO 14 (6-25); CALCIUM 7.8 mg/dL (8.4-10.2); CARBON DIOXIDE 21 mmol/L (22-29); CHLORIDE 101 mmol/L (98-107); CREATININE, SERUM 0.69 mg/dL (0.57-1.11); EST GLOMERULAR FILTRATION RATE > 60 ML/MIN (60-); GLUCOSE 197 mg/dL (74-118); POTASSIUM 3.2 mmol/L (3.5-5.1); SODIUM 130 mmol/L (136-145)
--- NOTE | 2019-02-18 04:52 | NUR ---
JAROD Dawson rounding; Informed of pt H/H. CHEMICAL PLANT MANAGER stated no redraw needed and orders put in for PRBC 2 units.
[2019-02-18] MEDS ORDERED: POTASSIUM CHLORIDE 20 MEQ TAB CR PO STA (04:53)
[2019-02-18] MEDS ORDERED: SODIUM CHLORIDE 0.9% 250ML 250 ML IV ONE ×2 (05:00→08:45)
[2019-02-18] MEDS: INSULIN LISPRO 100 UNIT/1 ML 3ML VIAL SQ SCH ×4 (07:30→20:29)
[2019-02-18 08:20] LABS: BILIRUBIN,URINE NEGATIVE (NEGATIVE); CLARITY,URINE CLEAR (CLEAR); COLOR,URINE YELLOW (YELLOW); KETONES,URINE NEGATIVE (NEGATIVE); LEUKOCYTE ESTERASE ,URINE NEGATIVE (NEGATIVE); NITRITE,URINE NEGATIVE (NEGATIVE); PROTEIN,URINE DIPSTICK NEGATIVE (NEGATIVE); URINE UROBILINOGEN 0.2 mg/dL (0.2 - 1)
[2019-02-18] MEDS ORDERED: ACETAMINOPHEN 325 MG TAB PO STA (08:34)
[2019-02-18 08:36] LABS: BACTERIA,URINE RARE /HPF; EPITHELIAL CELLS,URINE FEW /LPF
[2019-02-18] MEDS: CEFTRIAXONE SOD 1 GM/NS 50 ML 50 ML IV SCH (08:39)
[2019-02-18] MEDS: ATENOLOL 50 MG TAB PO SCH (08:41)
[2019-02-18] MEDS: PANTOPRAZOLE SOD 40 MG TABEC PO SCH ×2 (08:41→16:50)
[2019-02-18] MEDS: OYST-CAL-D 500MG TABLET PO SCH ×2 (08:41→16:50)
[2019-02-18] MEDS: POTASSIUM CHLORIDE 20 MEQ TAB CR PO SCH (08:43)
[2019-02-18] MEDS: METOCLOPRAMIDE HCL 10 MG/2ML VIAL IV SCH ×4 (08:43→20:16)
[2019-02-18] MEDS ORDERED: DIPHENHYDRAMINE HCL INJ 50 MG/ML VIAL IV ONE ×2 (08:45→12:30)
[2019-02-18] MEDS ORDERED: DEXAMETHASONE SOD PHOS 10 MG/1 ML VIAL IV ONE (08:45)
--- NOTE | 2019-02-18 10:32 | NUR ---
PATIENT BACK ON THE UNIT- IN STABLE CONDITION WITH NO S/S OF RESPIRATORY DISTRESS. DAUGHTER PRESENT IN ROOM.
--- NOTE | 2019-02-18 10:34 | Diagnostic Imaging Report ---
EXAMINATION: CT of the abdomen and pelvis with contrast. TECHNIQUE: Spiral CT images of the abdomen and pelvis were performed from the lung bases to the lesser trochanters after the intravenous administration of 100 cc Isovue-370. Coronal and sagittal reformatted images were obtained. COMPARISON: CT abdomen and pelvis without contrast 02/12/2019 CLINICAL HISTORY:Abdominal pain, urosepsis, bilateral nephritis DISCUSSION: ABDOMEN/PELVIS: LOWER THORAX:Interval increase in size of small bilateral pleural effusions with passive atelectasis of the posterior basal segments of the lower lobes. No pericardial effusion. HEPATOBILIARY: Geographic hypoattenuation along the falciform ligament similar to prior, compatible with focal steatosis. Otherwise no focal hepatic lesion or intrahepatic biliary ductal dilatation. The gallbladder is unremarkable. SPLEEN: No splenomegaly. PANCREAS: No focal masses or ductal dilatation. ADRENALS: No adrenal nodules. KIDNEYS/URETERS: Unchanged mild left hydronephrosis. Large wedge-shaped foci of nonenhancement of the left renal parenchyma in the upper pole medially and laterally, as well as the interpolar region. Urothelial enhancement of the upper collecting system and ureter. No discrete obstructing lesion. Overall decreased perfusion/enhancement of the left kidney relative to the right. More subtle wedge-shaped foci of hypoattenuation in the right kidney for example on coronal series 301 image 48 in the lower pole. PELVIC ORGANS/BLADDER: Urinary bladder is unremarkable. The uterus is not identified and has presumably been removed. PERITONEUM/RETROPERITONEUM: Interval decrease in small volume ascites. No pneumoperitoneum. LYMPH NODES: No pelvic sidewall, retroperitoneal, or mesenteric lymphadenopathy. Lymph nodes along the left renal hilum are increased in number but not enlarged by CT criteria. VESSELS: Abdominal aorta, major branch vessels, and iliac arterial systems are patent without aneurysmal dilatation. Portal vein, splenic vein, and central superior mesenteric vein are patent. GI TRACT: The large bowel shows no distention or wall thickening, though the descending and sigmoid colon are collapsed and poorly evaluated. The appendix is normal. No small bowel dilatation to suggest obstruction. BONES AND SOFT TISSUE: No osseous destructive lesion. Left lower quadrant omental calcification likely represents a lymph node or sequela of prior trauma. Diffuse anasarca. IMPRESSION: Findings compatible with severe left and mild right-sided pyelonephritis. Unchanged mild left hydronephrosis with urothelial inflammation. No discrete obstructing lesion. Bilateral pleural effusions, ascites, and anasarca in keeping with fluid overload. Signed by: Dr. Javad Cardenas M.D. on 02/18/2019 10:31 AM
[2019-02-18] MEDS: IRON SUCROSE 100 MG in SODIUM CHLORIDE 0.9% 100 ML 100 ML IV SCH (10:39)
--- NOTE | 2019-02-18 10:58 | Progress Note ---
DATE: 02/18/2019 SUBJECTIVE: The patient seen and examined today. The patient appears comfortable, still has cough and some chest pain, but no active bleeding. Hemoglobin dropped to 7. She was started on iron infusion yesterday. White cell count is still high, platelet count is improved to the 135. OBJECTIVE: GENERAL: Alert, awake, communicative. HEENT: Normocephalic, atraumatic. Sclarea pale. Conjunctiva clear. NECK: Supple. CHEST: Decreased breath sounds at bases. ABDOMEN: Soft. EXTREMITIES: No edema. LABS AND IMAGING: Reviewed. ASSESSMENT AND PLAN: The patient with history of multiple medical conditions. The patient is following for thrombocytopenia. Platelet count has improved. She has anemia, workup showed iron deficiency. She is started on iron infusion. Hemoglobin dropped significantly. Recommendation to give the patient blood transfusion, continuing remaining care, continue iron infusion, avoid thrombocytopenic medication. We will monitor the patient very closely. MD SÁNCHEZ Steele/REYNALDO /[id number]
[2019-02-18] MEDS: MAALOX/LIDOCAINE/BENADRYL/NYST 30 ML BTL PO SCH ×2 (12:05→16:50)
[2019-02-18] MEDS ORDERED: DEXAMETHASONE SOD PHOS INJ 4 MG/ML VIAL IV ONE (12:30)
[2019-02-18] MEDS ORDERED: SODIUM CHLORIDE 0.9% 250ML 250 ML ONE ×2 (12:41→17:13)
[2019-02-18] MEDS ORDERED: IOPAMIDOL 370 MG/ML 200 ML INFUS..BTL INJ ONE (14:01)
[2019-02-18] MEDS: FAMCICLOVIR 500 MG TAB PO SCH ×2 (14:29→20:13)
--- NOTE | 2019-02-18 15:04 | Progress Note ---
DATE: 02/18/2019 SUBJECTIVE: The patient did have some fever last night. Her blood count was low again this morning and she is requiring intravenous iron and additional packed red blood cells. CT scan showed changes consistent with pyelonephritis. PHYSICAL EXAMINATION: VITAL SIGNS: The patient is afebrile. T-max was 100.6. The blood pressure is 124/70 and saturation is 100% on 2 L. HEENT: No facial swelling or erythema. The nasal mucosa is normal. The oropharynx is normal. LYMPHATIC: No submandibular, cervical, or supraclavicular adenopathy. CARDIAC: Regular rate and rhythm with normal S1, S2. There are no murmurs or rubs heard. LUNGS: Auscultation of lungs reveals clear breath sounds bilaterally. There is no wheezing. ABDOMEN: Soft, nontender. There is no rebound or guarding. EXTREMITIES: No leg edema or calf tenderness. IMPRESSION: 1. Anemia secondary to chronic blood loss. 2. Septic shock secondary to pyelonephritis, present on admission. 3. Acute respiratory failure that has improved. 4. Diabetes. 5. Thrombocytopenia. PLAN: 1. Continue current antibiotics. 2. Packed red blood cells; continue to monitor transfusion and the blood counts. 3. Monitor renal function. 4. Continue antibiotics. 5. Case discussed with patient and family. Alan Rahman MD [facility]/MOD[facility] /[id number]
[2019-02-18] MEDS: FUROSEMIDE INJ 10 MG/ML 2 ML VIAL IV SCH (16:51)
--- NOTE | 2019-02-18 19:11 | NUR ---
PATIENT IS RESTING IN BED- IN STABLE CONDITION WITH NO S/S RESPIRATORY DISTRESS. NO PAIN VOICED. SON PRESENT IN ROOM. CALL LIGHT IS WITHIN REACH, PATIENT INSTRUCTED TO CALL FOR ASSISTANCE NEEDED. BEDSIDE REPORT COMPLETED WITH ONCOMING NURSE.
--- NOTE | 2019-02-18 20:28 | NUR ---
PT C/O THAT HER IV TO RIGHT AC IS "HURTING TOO MUCH",IV CATH TIP NOTED INTACT UP ON REMOVAL.DRESSING APPLIED TO SITE.PT LEFT IJ INTACT AND PATENT.CALL LIGHT WITHIN EASY REACH.
[2019-02-18] MEDS: INSULIN GLARGINE 100 UNITS/ML VIAL SQ SCH (20:30)
--- NOTE | 2019-02-18 22:15 | NUR ---
ORDER AND CONSENT FOR BLOOD TRANSFUSION VERIFIED.BEDSIDE VERIFICATION DONE WITH YUSUF ARELLANO.SECOND UNIT OF BLOOD STARTED,STAYED WITH THE PT FOR 15 MINUTES,NO S/S OF ADVERSE REACTION NOTED/REPORTED. AT BEDSIDE.BED IN LOWEST/LOCKED POSITION.INSTRUCTED PT TO CALL FOR ASSISTANCE NEEDED BY USING CALL LIGHT,PT VERBALIZED UNDERSTANDING.CALL LIGHT WITHIN EASY REACH.WILL CONTINUE TO MONITOR CLOSELY.
[2019-02-19] VITALS (8 sets, daily range): BP systolic 104–142; BP diastolic 52–65
--- NOTE | 2019-02-19 00:50 | NUR ---
SECOND UNIT OF BLOOD COMPLETE AT THIS TIME,PT RESTING IN BED WITH NO S/S OF DISTRESS.RESPIRATIONS EVEN/NON LABORED.NO S/S OF ADVERSE REACTION NOTED/REPORTED.CALL LIGHT WITHIN EASY REACH.WILL CONTINUE TO MONITOR.
[2019-02-19] MEDS: FUROSEMIDE INJ 10 MG/ML 2 ML VIAL IV SCH (01:25)
[2019-02-19 04:06] LABS: BASOPHILS # (AUTO) 0.1 (0.0-0.1); BASOPHILS % 0.2 % (0.0-1.0); HEMATOCRIT 30.9 % (34.2-44.1); LYMPHOCYTES # (AUTO) 0.5 (1.0-3.2); LYMPHOCYTES % 2.5 % (18.0-39.1); MEAN CORPUSCULAR HEMOGLOBIN 28.6 pg (28-32); MEAN CORPUSCULAR HGB CONC 35.6 g/dL (31-35); MEAN CORPUSCULAR VOLUME 80.5 fL (81-99); MONOCYTES # (AUTO) 0.3 (0.2-0.8); MONOCYTES % 1.5 % (4.4-11.3); NEUTROPHILS % 93.7 % (38.7-80.0); PLATELET COUNT 160 x10e3/uL (140-360); RED CELL DISTRIBUTION WIDTH 13.2 % (11.7-14.4)
[2019-02-19 04:24] LABS: RED BLOOD COUNT 3.84 x10e6/uL (3.6-5.1)
[2019-02-19 04:26] LABS: ANION GAP 16.4 mmol/L (8-16); BLOOD UREA NITROGEN 13 mg/dL (7-26); BUN/CREATININE RATIO 17 (6-25); CALCIUM 8.7 mg/dL (8.4-10.2); CARBON DIOXIDE 23 mmol/L (22-29); CHLORIDE 97 mmol/L (98-107); CREATININE, SERUM 0.77 mg/dL (0.57-1.11); EST GLOMERULAR FILTRATION RATE > 60 ML/MIN (60-); GLUCOSE 368 mg/dL (74-118); MAGNESIUM 1.4 MG/DL (1.3-2.1); POTASSIUM 3.4 mmol/L (3.5-5.1); SODIUM 133 mmol/L (136-145)
[2019-02-19] MEDS ORDERED: POTASSIUM CHLORIDE 20 MEQ TAB CR PO STA (06:36)
[2019-02-19] MEDS ORDERED: CHOLESTYRAMINE 4 GM PACKET PO PRN (06:45)
--- NOTE | 2019-02-19 07:02 | NUR ---
PATIENT IS AWAKE AND IN STABLE CONDITION WITH NO S/S RESPIRATORY DISTRESS. NO PAIN VOICED. TELEMETRY APPLIED. PRESENT IN ROOM. BED ALARM ON. CALL LIGHT IS WITHIN REACH, PATIENT INSTRUCTED TO CALL FOR ASSISTANCE NEEDED.
--- NOTE | 2019-02-19 07:12 | NUR ---
REPORT GIVEN TO ONCOMING NURSE.WALKING ROUNDS MADE.PT RESTING IN BED WITH NO S/S OF DISTRESS.
[2019-02-19] MEDS: INSULIN LISPRO 100 UNIT/1 ML 3ML VIAL SQ SCH ×4 (07:30→21:10)
[2019-02-19] MEDS: MAALOX/LIDOCAINE/BENADRYL/NYST 30 ML BTL PO SCH ×3 (08:15→16:45)
[2019-02-19] MEDS: OYST-CAL-D 500MG TABLET PO SCH ×2 (08:22→16:46)
[2019-02-19] MEDS: FAMCICLOVIR 500 MG TAB PO SCH ×3 (08:22→21:05)
[2019-02-19] MEDS: METOCLOPRAMIDE HCL 10 MG/2ML VIAL IV SCH ×4 (08:23→21:07)
[2019-02-19] MEDS: PANTOPRAZOLE SOD 40 MG TABEC PO SCH ×2 (08:24→16:46)
[2019-02-19] MEDS: CEFTRIAXONE SOD 1 GM/NS 50 ML 50 ML IV SCH (08:24)
[2019-02-19] MEDS: ATENOLOL 50 MG TAB PO SCH (08:24)
[2019-02-19] MEDS: POTASSIUM CHLORIDE 20 MEQ TAB CR PO SCH (08:24)
[2019-02-19] MEDS ORDERED: INSULIN GLARGINE 100 UNITS/ML VIAL SQ SCH ×2 (09:00)
--- NOTE | 2019-02-19 09:14 | Progress Note ---
DATE: 02/19/2019 SUBJECTIVE: The patient had some chills last night. She is walking. She has some mild cough. Overall, she feels improved. PHYSICAL EXAMINATION: VITAL SIGNS: The blood pressure is 109/53 and the pulse is 90. Saturation 96% on room air. HEENT: Shows no facial swelling or erythema. There is a left IJ line in place. The site looks clean. CARDIAC: Reveals regular rate and rhythm with normal S1 and S2. There are no murmurs or rubs. LUNGS: Auscultation of lungs reveals rhonchorous breath sounds bilaterally. There is no wheezing. ABDOMEN: Soft, nontender. There is no rebound or guarding. EXTREMITIES: Show no leg edema or calf tenderness. There is no cyanosis or clubbing. SKIN: Shows no rashes. NEUROLOGICAL: Shows no focal abnormalities. IMPRESSION: 1. Sepsis secondary to pyelonephritis, present on admission. 2. Diabetes out of control. 3. Anemia secondary to chronic blood loss. PLAN: 1. Increase Lantus insulin and continue lispro insulin as needed. 2. Continue current antibiotics. 3. Out of bed as tolerated. 4. Repeat CBC in a.m. 5. Case discussed with the patient and spouse. MD ZOE Eugene/REYNALDO /[id number]
--- NOTE | 2019-02-19 09:38 | Progress Note ---
DATE: 02/19/2019 SUBJECTIVE: The patient appeared comfortable, clinically doing better. No chest pain, shortness of breath, headache or dizziness. Platelet count has improved to normal. Hemoglobin is better after blood transfusion. PHYSICAL EXAMINATION: GENERAL: Alert, awake, and communicative. HEENT: Normocephalic and atraumatic. Sclerae pale. Conjunctiva clear. NECK: Supple. CHEST: Decreased breath sounds at bases. CARDIOVASCULAR: Regular rate and rhythm. EXTREMITIES: No edema. LABS AND IMAGING: Reviewed. ASSESSMENT AND PLAN: The patient with history of multiple medical conditions including the followin. Anemia, required blood transfusion. Currently on iron. History of thrombocytopenia, platelet count is normal. 2. Leukocytosis and pyelonephritis, on antibiotic. At this point, we will continue current antibiotic or any hematological intervention. Continue iron. We will follow the patient. MD SÁNCHEZ Steele/REYNALDO /[id number]
[2019-02-19] MEDS: IRON SUCROSE 100 MG in SODIUM CHLORIDE 0.9% 100 ML 100 ML IV SCH (11:34)
[2019-02-19] MEDS: VANCOMYCIN 250MG/5ML ORAL SOLN PO SCH ×2 (11:34→17:32)
--- NOTE | 2019-02-19 11:48 | NUR ---
COCOA BEAN ROASTER NOTIFIED OF PATIENT'S BLOOD GLUCOSE OF 421- AWAITING CALLBACK. 14 UNITS WERE ADMINISTERED TO THE PATIENT DIRECTED FROM THE SLIDING SCALE AND COCOA BEAN ROASTER NOTIFIED.
--- NOTE | 2019-02-19 12:05 | NUR ---
RECEIVED CALLBACK FROM N.P.- NO NEW ORDERS REGARDING PATIENT'S BG OF 421. DIETARY PRESENT ON UNIT- SPOKE TO JIG BORING MACHINE OPERATOR FOR METAL REGARDING PATIENT'S CURRENT BG. RECOMMENDATION TO ADVANCE PATIENT TO FULL LIQUID AND REMOVE ENSURE SUPPLEMENT FROM TRAY. ORDER RECEIVED FRON N.P. TO ADVANCE DIET TO FULL LIQUID.
--- NOTE | 2019-02-19 16:12 | NUR ---
CALLED DR. BRUCE- RECEIVED CALLBACK AND SPOKE TO DR. BRUCE REGARDING PATIENT CT ABD/PELVIS RESULTS. NO NEW ORDERS RECEIVED AND DR. BRUCE WILL ROUND TOMORROW TO SEE THE PATIENT.
--- NOTE | 2019-02-19 19:08 | NUR ---
PATIENT IS SITTING ON THE SIDE OF THE BED. PATIENT REMAINS IN STABLE CONDITION WITH NO S/S RESPIRATORY DISTRESS. NO PAIN VOICED. FAMILY MEMBERS PRESENT IN ROOM. CALL LIGHT IS WITHIN REACH, PATIENT INSTRUCTED TO CALL FOR ASSISTANCE NEEDED. BEDSIDE REPORT COMPLETED WITH ONCOMING NURSE.
[2019-02-19] MEDS: INSULIN GLARGINE 100 UNITS/ML VIAL SQ SCH (21:11)
[2019-02-20] VITALS (8 sets, daily range): BP systolic 97–147; BP diastolic 53–67
[2019-02-20 04:03] LABS: BASOPHILS % 0.2 % (0.0-1.0); EOSINOPHILS # (AUTO) 0.2 (0.0-0.4); EOSINOPHILS % 1.2 % (0.0-6.0); HEMATOCRIT 26.3 % (34.2-44.1); HEMOGLOBIN 9.3 g/dL (12.0-16.0); LYMPHOCYTES # (AUTO) 2.4 (1.0-3.2); LYMPHOCYTES % 13.1 % (18.0-39.1); MEAN CORPUSCULAR HEMOGLOBIN 28.8 pg (28-32); MEAN CORPUSCULAR HGB CONC 35.4 g/dL (31-35); MEAN CORPUSCULAR VOLUME 81.4 fL (81-99); MONOCYTES # (AUTO) 1.8 (0.2-0.8); MONOCYTES % 10.1 % (4.4-11.3); NEUTROPHILS # (AUTO) 13.3 (2.1-6.9); NEUTROPHILS % 74.3 % (38.7-80.0); PLATELET COUNT 177 x10e3/uL (140-360); RED BLOOD COUNT 3.23 x10e6/uL (3.6-5.1); RED CELL DISTRIBUTION WIDTH 13.4 % (11.7-14.4)
[2019-02-20 04:21] LABS: ANION GAP 13.1 mmol/L (8-16); BLOOD UREA NITROGEN 14 mg/dL (7-26); BUN/CREATININE RATIO 21 (6-25); CALCIUM 7.9 mg/dL (8.4-10.2); CARBON DIOXIDE 24 mmol/L (22-29); CHLORIDE 101 mmol/L (98-107); CREATININE, SERUM 0.67 mg/dL (0.57-1.11); EST GLOMERULAR FILTRATION RATE > 60 ML/MIN (60-); GLUCOSE 144 mg/dL (74-118); POTASSIUM 3.1 mmol/L (3.5-5.1); SODIUM 135 mmol/L (136-145)
--- NOTE | 2019-02-20 06:05 | NUR ---
DANNY OLIVERA IN UNIT NOTIFIED DANNY ABOUT PT ABNORMAL LAB.NO NEW ORDERS NOTED AT THIS TIME.
[2019-02-20] MEDS: VANCOMYCIN 250MG/5ML ORAL SOLN PO SCH ×5 (06:08→23:36)
[2019-02-20 06:51] LABS: ALANINE AMINOTRANSFERASE 23 IU/L (0-55); ALBUMIN 2.1 g/dL (3.5-5.0); ALKALINE PHOSPHATASE 146 IU/L (40-150); BILIRUBIN,DIRECT 0.6 mg/dL (0.0-0.5)
--- NOTE | 2019-02-20 06:54 | NUR ---
BEDSIDE SHIFT REPORT GIVEN TO ONCOMING NURSE,PT SITTING UP IN BED WITH NO S/S OF DISTRESS.
--- NOTE | 2019-02-20 07:10 | NUR ---
PATIENT IS IN STABLE CONDITION WITH NO S/S RESPIRATORY DISTRESS. NO PAIN VOICED. PRESENT IN ROOM. CALL LIGHT IS WITHIN REACH, PATIENT INSTRUCTED TO CALL FOR ASSISTANCE NEEDED.
[2019-02-20] MEDS: INSULIN LISPRO 100 UNIT/1 ML 3ML VIAL SQ SCH ×4 (07:30→21:17)
[2019-02-20] MEDS: INSULIN GLARGINE 100 UNITS/ML VIAL SQ SCH ×2 (08:36→21:19)
[2019-02-20] MEDS: MAALOX/LIDOCAINE/BENADRYL/NYST 30 ML BTL PO SCH ×3 (08:36→16:27)
[2019-02-20] MEDS: PANTOPRAZOLE SOD 40 MG TABEC PO SCH ×2 (08:39→16:27)
[2019-02-20] MEDS: IRON SUCROSE 100 MG in SODIUM CHLORIDE 0.9% 100 ML 100 ML IV SCH (08:39)
[2019-02-20] MEDS: METOCLOPRAMIDE HCL 10 MG/2ML VIAL IV SCH ×4 (08:39→21:16)
[2019-02-20] MEDS: OYST-CAL-D 500MG TABLET PO SCH ×2 (08:40→16:27)
[2019-02-20] MEDS: FAMCICLOVIR 500 MG TAB PO SCH ×3 (08:40→21:20)
[2019-02-20] MEDS: POTASSIUM CHLORIDE 20 MEQ TAB CR PO SCH (08:40)
[2019-02-20] MEDS: ATENOLOL 50 MG TAB PO SCH (08:40)
[2019-02-20] MEDS: CEFTRIAXONE SOD 1 GM/NS 50 ML 50 ML IV SCH (10:06)
--- NOTE | 2019-02-20 13:27 | Progress Note ---
DATE: 02/20/2019 SUBJECTIVE: The patient feels better. She has no fever. She has no nausea or vomiting. She was evaluated by Urology this morning. PHYSICAL EXAMINATION: VITAL SIGNS: The patient is afebrile. The vital signs are stable. HEENT: Shows no facial swelling or erythema. CARDIAC: Reveals regular rate and rhythm with a normal S1 and S2. There are no murmurs or rubs. LUNGS: Auscultation of lungs shows clear breath sounds bilaterally. There is no wheezing. ABDOMEN: Soft, nontender. There is no rebound or guarding. EXTREMITIES: Show no leg edema or calf tenderness. There is no cyanosis, clubbing. SKIN: Shows no rashes. NEUROLOGICAL: Shows no focal abnormalities. LABORATORY DATA: White blood cell count is 17.9 and hemoglobin is 9.3. The BUN to creatinine ratio was normal. Potassium is 3.1. IMPRESSION: 1. Continue antibiotics. 2. Monitor blood sugars. 3. Monitor creatinine and electrolytes. 4. Await further recommendations from Urology. Alan Rahman MD [facility]/REYNALDO /[id number]
--- NOTE | 2019-02-20 14:53 | NUR ---
PATIENT AMBULATING IN THE HALLWAY WITH HER DAUGHTER. PATIENT REMAINS IN STABLE CONDITION WITH NO S/S OF RESPIRATORY DISTRESS.
--- NOTE | 2019-02-20 16:20 | NUR ---
Visit made by the Spiritual Care Department Pastoral Visitor, Mynor Carney. PV provided pastoral presence, hospitality, and supportive listening. Pastoral Visitor informed pt/family of the scope of Dietary Aide Teacher Services and availability. INDERJIT HEATH Supervisor Data Processing Spiritual Care Department O: [phone] Pager: [phone] ([phone] calling from)
--- NOTE | 2019-02-20 18:48 | Progress Note ---
DATE: 02/17/2019 SUBJECTIVE: The patient is seen and examined today. The patient appeared comfortable. Clinical condition is improving. No worsening event noted. Platelet counts are trending upwards. Hemoglobin is still low with no evidence of any active bleeding. PHYSICAL EXAMINATION: GENERAL: Alert, awake, communicative, not in acute distress. HEENT: Normocephalic, atraumatic. Sclerae pale. Conjunctiva clear. NECK: Supple. CHEST: Clear breath sounds bilaterally. No wheezing. ABDOMEN: Soft, nontender. EXTREMITIES: No edema or calf tenderness. CDL COMPANY DRIVER: Intact. SKIN: Intact. LABS: Hemoglobin 7.2, MCV 79.8, platelet count 101. ASSESSMENT AND PLAN: The patient with history of diabetes, admitted through emergency with pyelonephritis and respiratory failure, managed by social insurance specialist. Clinical condition has improved. The patient had anemia and thrombocytopenia. 1. Thrombocytopenia. The patient was admitted with low platelet count. Platelet counts are trending upwards. Likely etiology is sepsis as a possibility of immune thrombocytopenia. Platelet count are improving. Close observation. Avoid thrombocytopenic medication. 2. Anemia. The patient has worsening anemia. Hemoglobin dropped to 7.2. No evidence of any active bleeding. Anemia workup is consistent with possible iron deficiency but ferritin level is elevated, could be part of acute-phase reactant. We will start the patient on iron infusion treatment. Try to avoid frequent blood draws. Blood transfusion if hemoglobin go below 7. Continue remaining care. We will monitor patient closely. MD SÁNCHEZ Steele/REYNALDO /[id number]
--- NOTE | 2019-02-20 19:13 | NUR ---
PATIENT IS IN STABLE CONDITION WITH NO S/S RESPIRATORY DISTRESS- NO PAIN VOICED. FAMILY MEMBERS PRESENT IN ROOM. CALL LIGHT IS WITHIN REACH, PATIENT INSTRUCTED TO CALL FOR ASSISTANCE NEEDED. BEDSIDE REPORT GIVEN TO ONCOMING NURSE.
[2019-02-20] MEDS: ACETAMINOPHEN 325 MG TAB PO PRN (23:30)
--- NOTE | 2019-02-20 23:30 | NUR ---
PT NOTED WITH ELEVATED TEMP OF 100.8,PRN TYLENOL ADMINISTERED PER MAR,TEMP IN ROOM ADJUSTED.WILL CONTINUE TO MONITOR CLOSELY.
[2019-02-21] VITALS (8 sets, daily range): BP systolic 106–156; BP diastolic 56–75
--- NOTE | 2019-02-21 00:45 | NUR ---
PT RESTING IN BED WITH NO S/S OF DISTRESS.RESPIRATIONS EVEN/NON LABORED.RECHECKED TEMP AT THIS TIME NOTED 98.7.CALL LIGHT WITHIN EASY REACH.
[2019-02-21 04:16] LABS: BASOPHILS % 0.1 % (0.0-1.0); EOSINOPHILS # (AUTO) 0.2 (0.0-0.4); EOSINOPHILS % 1.4 % (0.0-6.0); HEMATOCRIT 25.1 % (34.2-44.1); HEMOGLOBIN 8.6 g/dL (12.0-16.0); LYMPHOCYTES # (AUTO) 1.9 (1.0-3.2); LYMPHOCYTES % 11.5 % (18.0-39.1); MEAN CORPUSCULAR HEMOGLOBIN 28.7 pg (28-32); MEAN CORPUSCULAR HGB CONC 34.3 g/dL (31-35); MEAN CORPUSCULAR VOLUME 83.7 fL (81-99); MONOCYTES # (AUTO) 1.4 (0.2-0.8); MONOCYTES % 8.7 % (4.4-11.3); NEUTROPHILS # (AUTO) 12.7 (2.1-6.9); NEUTROPHILS % 77.4 % (38.7-80.0); PLATELET COUNT 184 x10e3/uL (140-360); RED CELL DISTRIBUTION WIDTH 13.3 % (11.7-14.4)
[2019-02-21 04:36] LABS: ANION GAP 10.3 mmol/L (8-16); BLOOD UREA NITROGEN 8 mg/dL (7-26); BUN/CREATININE RATIO 13 (6-25); CARBON DIOXIDE 27 mmol/L (22-29); CHLORIDE 104 mmol/L (98-107); CREATININE, SERUM 0.62 mg/dL (0.57-1.11); EST GLOMERULAR FILTRATION RATE > 60 ML/MIN (60-); GLUCOSE 100 mg/dL (74-118); POTASSIUM 3.3 mmol/L (3.5-5.1); SODIUM 138 mmol/L (136-145)
[2019-02-21] MEDS: VANCOMYCIN 250MG/5ML ORAL SOLN PO SCH ×3 (05:53→16:44)
[2019-02-21] MEDS ORDERED: POTASSIUM CHLORIDE 20 MEQ TAB CR PO ONE (07:00)
--- NOTE | 2019-02-21 07:05 | NUR ---
BEDSIDE SHIFT REPORT GIVEN TO ONCOMING NURSE,PT RESTING IN BED WITH NO S/S OF DISTRESS.
--- NOTE | 2019-02-21 07:06 | NUR ---
BEDSIDE SHIFT REPORT GIVEN TO ONCNIKO NURSE,PT RESTING IN BED WITH NO S/S OF DISTRESS. Addendum: 02/21/19 at 0709 by Jacque Carcamo RN DISREGARD ABOVE NOTE
[2019-02-21] MEDS: INSULIN LISPRO 100 UNIT/1 ML 3ML VIAL SQ SCH ×4 (07:30→21:00)
--- NOTE | 2019-02-21 07:30 | NUR ---
Pt received in bed. Aox4 and able to verbalize needs. Denies any pain at this time. Breathes are even and unlabored. Denies nausea. Pt ambulates independently
[2019-02-21] MEDS: METOCLOPRAMIDE HCL 10 MG/2ML VIAL IV SCH ×2 (08:21→12:35)
[2019-02-21] MEDS: PANTOPRAZOLE SOD 40 MG TABEC PO SCH ×2 (08:21→16:44)
[2019-02-21] MEDS: FAMCICLOVIR 500 MG TAB PO SCH ×3 (08:22→21:10)
[2019-02-21] MEDS: POTASSIUM CHLORIDE 20 MEQ TAB CR PO SCH (08:22)
[2019-02-21] MEDS: IRON SUCROSE 100 MG in SODIUM CHLORIDE 0.9% 100 ML 100 ML IV SCH (08:22)
[2019-02-21] MEDS: OYST-CAL-D 500MG TABLET PO SCH ×2 (08:22→16:44)
[2019-02-21] MEDS: ATENOLOL 50 MG TAB PO SCH (08:23)
[2019-02-21] MEDS: MAALOX/LIDOCAINE/BENADRYL/NYST 30 ML BTL PO SCH ×3 (08:38→16:44)
[2019-02-21] MEDS: INSULIN GLARGINE 100 UNITS/ML VIAL SQ SCH ×2 (08:38→21:00)
[2019-02-21] MEDS: CEFTRIAXONE SOD 1 GM/NS 50 ML 50 ML IV SCH (09:15)
--- NOTE | 2019-02-21 10:41 | Progress Note ---
DATE: 02/21/2019 SUBJECTIVE: The patient seen and examined today. The patient appeared comfortable. No worsening event noted. No chest pain, shortness of breath, headache, or dizziness. The patient had worsening anemia, required blood transfusion. Hemoglobin trending downward to 8.6. The patient currently on iron infusion. Anemia workup in the past consistent with iron-deficiency anemia. The patient also has pyelonephritis. White cells are trending downward. Platelet count staying normal range. PHYSICAL EXAMINATION: GENERAL: Alert, awake, communicative. HEENT: Normocephalic, atraumatic. Sclerae pale. Conjunctivae clear. NECK: Supple. CHEST: Decreased breath sounds at bases. CARDIOVASCULAR: Regular rate and rhythm. EXTREMITIES: No edema. LABORATORY AND IMAGING DATA: Labs and imaging reviewed. ASSESSMENT AND PLAN: The patient with history of multiple medical conditions including the followin. Thrombocytopenia. The patient's current platelet count is stable. No evidence of any bleeding. Continue close observation. Avoid thrombocytopenic medication. 2. Anemia. The patient's anemia workup consistent with iron-deficiency anemia. The patient required blood transfusion, currently on iron infusion. 3. Pyelonephritis. The patient continued on antibiotic. 4. We will continue remaining care. We will follow. MD SÁNCHEZ Steele/REYNALDO /[id number]
--- NOTE | 2019-02-21 15:13 | Progress Note ---
DATE: 02/21/2019 SUBJECTIVE: The patient is doing better. She is not having fevers. She is off oxygen. She is walking to the bathroom. She is awaiting a potential ureteral stent tomorrow. PHYSICAL EXAMINATION: VITAL SIGNS: The patient is afebrile. The vital signs are stable. HEENT: Shows no facial swelling or erythema. CARDIAC: Reveals a regular rate and rhythm with a normal S1, S2. There are no murmurs or rubs heard. LUNGS: Auscultation of lungs reveals clear breath sounds bilaterally. There is no wheezing. ABDOMEN: Soft and nontender. There is no rebound or guarding. EXTREMITIES: Show no leg edema or calf tenderness. IMPRESSION: 1. Severe sepsis secondary to pyelonephritis, present on admission. 2. Nephrolithiasis. 3. Respiratory failure. 4. Anemia. PLAN: 1. Await ureteral stent placement. 2. Continue antibiotics. 3. Physical therapy. MD ZOE Eugene/REYNALDO /[id number]
[2019-02-21] MEDS ORDERED: ONDANSETRON HCL 4 MG ORAL DISINTEGRATING TAB PO PRN (15:30)
--- NOTE | 2019-02-21 15:37 | NUR ---
Nutrition Intervention Note RD Recommendation(s) for Physician: -Continue current diet as ordered Plan of Care: RD following, monitoring for tolerance and adequacy Nutrition reason for involvement: Follow up RD Assessment 02/21 - Pt was discussed during AM rounds. Pending ureteral stent tomorrow. Diet has been advanced to ADA today. Pt is tolerating current diet well. No GI complains reported. LBM 02/21. Current diet is appropriate and adequate. Will continue to monitor and follow. 02/17- 53yo F, who was admitted for abdominal pain. Visited pt in the room. Pt reported feeling nausea and vomited when taking potassium tablet this morning. Pt reports of stomach burning when taking medications. However, pt is able to tolerate clear liquid diet without any issue. Pt complains of diarrhea and stool culture is pending. Her UBW is ~130lbs. No sign of muscle/ fat loss noted. RD offered Ensure Clear to increase protein calorie intake to increase protein-calorie intake and pt was agreeable. Will continue to monitor and follow. Principal Problems/Diagnoses: pyelonephritis, urosepsis PMH: diabetes GI: abdomen soft, non-tender, LBM 7/ Skin: no pressure wound noted Labs: (02/21) K 3.3 L, Glucose 264 H, Ca 8.0 L (02/17) Na 130 L, K 2.8 L, Glucose 193 H, Ca 8.2 L Meds: insulin, vancomycin, K dur, oscal D, protonix Ht: 61in Wt: 153lb BMI: 28.9kg/m2 IBW: 105lb Malnutrition Evaluation (02/17/19) The patient does not meet criteria for a specified degree of malnutrition at this time. Will re-evaluate at follow-up as appropriate. Nutrition Prescription (Diet Order): ADA 1800 Estimated Nutritional Needs: Calories: 1475 1770kcal (25-30kcal/kg/d) Weight used: UBW Protein: 59 89g (1-1.5g/kg/d) Weight used: UBW Diet Adequacy: meeting calorie needs, meeting protein needs Diet Education Needs Assessment: Diet education not indicated. Nutrition Care Level: low Nutrition Diagnosis: No nutrition diagnosis at this time. Goal: Patient will meet 75-100% of estimated needs by follow up Progress: Goal met Interventions: Modified diet Monitoring/Evaluation: Total energy intake, Total protein intake, Modified diet, Weight change Signed: Trish Gipson, MS, RD, LD
[2019-02-21] MEDS: METOCLOPRAMIDE HCL 10 MG TAB PO SCH ×2 (16:44→21:10)
--- NOTE | 2019-02-21 18:24 | NUR ---
Pt ambulating in hallway. AOX4 and able to verbalize needs. Denies any pain at this time.
--- NOTE | 2019-02-21 18:33 | NUR ---
Spoke with Dr. Buck at this time to ask about possible stent placement. Dr. Buck states he wants pt to be NPO after midnight and he will see pt in morning and decide if pt will need stent placement. Pt denies any pain at this time but did have a low grade temp within last 24 hrs.
--- NOTE | 2019-02-21 19:26 | NUR ---
RECEIVED PT IN BED AOX3 .DENIES PAIN .RESPIRATIONS ARE EVEN AND UNLABORED .FAMILY AT THE BEDSIDE .CALL LIGHT WITH IN REACH .CONTINUE TO MONITOR
[2019-02-22] VITALS (8 sets, daily range): BP systolic 109–146; BP diastolic 49–76
[2019-02-22] MEDS: ACETAMINOPHEN 325 MG TAB PO PRN (00:32)
[2019-02-22 03:49] LABS: BASOPHILS % 0.3 % (0.0-1.0); EOSINOPHILS # (AUTO) 0.3 (0.0-0.4); EOSINOPHILS % 1.7 % (0.0-6.0); HEMATOCRIT 24.1 % (34.2-44.1); HEMOGLOBIN 8.2 g/dL (12.0-16.0); LYMPHOCYTES # (AUTO) 2.1 (1.0-3.2); LYMPHOCYTES % 14.3 % (18.0-39.1); MEAN CORPUSCULAR HEMOGLOBIN 28.5 pg (28-32); MEAN CORPUSCULAR VOLUME 83.7 fL (81-99); MONOCYTES # (AUTO) 1.4 (0.2-0.8); MONOCYTES % 9.6 % (4.4-11.3); NEUTROPHILS # (AUTO) 10.9 (2.1-6.9); NEUTROPHILS % 73.2 % (38.7-80.0); PLATELET COUNT 219 x10e3/uL (140-360); RED BLOOD COUNT 2.88 x10e6/uL (3.6-5.1); RED CELL DISTRIBUTION WIDTH 13.2 % (11.7-14.4)
[2019-02-22 04:08] LABS: ANION GAP 11.7 mmol/L (8-16); BLOOD UREA NITROGEN 6 mg/dL (7-26); BUN/CREATININE RATIO 9 (6-25); CALCIUM 7.8 mg/dL (8.4-10.2); CARBON DIOXIDE 26 mmol/L (22-29); CHLORIDE 102 mmol/L (98-107); CREATININE, SERUM 0.65 mg/dL (0.57-1.11); EST GLOMERULAR FILTRATION RATE > 60 ML/MIN (60-); GLUCOSE 203 mg/dL (74-118); POTASSIUM 3.7 mmol/L (3.5-5.1); SODIUM 136 mmol/L (136-145)
[2019-02-22] MEDS: VANCOMYCIN 250MG/5ML ORAL SOLN PO SCH ×2 (06:33)
[2019-02-22] MEDS ORDERED: HYDROCHLOROTHIAZIDE 25 MG TAB PO ONE (06:50)
--- NOTE | 2019-02-22 07:02 | NUR ---
PT IS NPO FOR SURGERY NO ORDER .PT RESTING AND DENIES PAIN AND FAMILY AT THE BEDSIDE .REPORT GIVEN TO THE ONCOMING NURSE
[2019-02-22] MEDS: METOCLOPRAMIDE HCL 10 MG TAB PO SCH ×4 (07:30→20:39)
[2019-02-22] MEDS: MAALOX/LIDOCAINE/BENADRYL/NYST 30 ML BTL PO SCH ×3 (07:30→17:03)
[2019-02-22] MEDS: PANTOPRAZOLE SOD 40 MG TABEC PO SCH ×2 (07:30→17:03)
[2019-02-22] MEDS: INSULIN LISPRO 100 UNIT/1 ML 3ML VIAL SQ SCH ×4 (07:30→21:00)
[2019-02-22] MEDS: IRON SUCROSE 100 MG in SODIUM CHLORIDE 0.9% 100 ML 100 ML IV SCH (08:57)
[2019-02-22] MEDS: OYST-CAL-D 500MG TABLET PO SCH ×2 (09:00→17:03)
[2019-02-22] MEDS: ATENOLOL 50 MG TAB PO SCH (09:00)
[2019-02-22] MEDS: FAMCICLOVIR 500 MG TAB PO SCH ×3 (09:00→20:39)
[2019-02-22] MEDS: CEFTRIAXONE SOD 1 GM/NS 50 ML 50 ML IV SCH (09:00)
[2019-02-22] MEDS: INSULIN GLARGINE 100 UNITS/ML VIAL SQ SCH ×2 (09:00→21:00)
--- NOTE | 2019-02-22 09:00 | NUR ---
Dr. Buck was here to see pt and decided that pt is to have cystoscopy with left stent placement this afternoon. Pt continues to be NPO at this time. Procedure is planned to be around noon. Denies any pain.
--- NOTE | 2019-02-22 09:02 | Progress Note ---
DATE: 02/22/2019 SUBJECTIVE: The patient feels better overall. She notes a little bit of swelling in her left leg. She describes some muscle cramps in her posterior lower leg. She also had some muscle cramps on the plantar surface of her foot. PHYSICAL EXAMINATION: VITAL SIGNS: The patient is afebrile. Her T-max was 100.4. HEENT: Shows no facial swelling or erythema. The nasal mucosa is normal. LYMPHATIC: Shows no submandibular, cervical, or supraclavicular adenopathy. CARDIAC: Reveals regular rate and rhythm with normal S1, S2. There are no murmurs or rubs. LUNGS: Auscultation of lungs shows clear breath sounds bilaterally. There is no wheezing. ABDOMEN: Soft, nontender. There is no rebound or guarding. EXTREMITIES: Show 1 to 2+ leg edema. IMPRESSION: 1. Severe sepsis secondary to pyelonephritis, present on admission. 2. Acute respiratory failure that has resolved. 3. Anemia. 4. Thrombocytopenia that has improved. 5. Diabetes. 6. Nephrolithiasis. PLAN: 1. Await ureteral stent placement. 2. Continue antibiotics. 3. Physical therapy. Alan Rahman MD [facility]/REYNALDO /[id number]
--- NOTE | 2019-02-22 09:07 | Progress Note ---
DATE: 02/22/2019 SUBJECTIVE: The patient seen and examined today. The patient appeared comfortable. No worsening event noted. Clinically, condition is stable. She is awaiting ureteral stent procedure. Her current hemoglobin is improved to 8.2. Platelet count is normal. No evidence of any active bleeding. She is currently on iron infusion. OBJECTIVE: GENERAL: Alert, awake, communicative. HEENT: Normocephalic, atraumatic. Sclerae pale. Conjunctiva clear. NECK: Supple. CHEST: Decreased breath sounds at bases. CARDIOVASCULAR: Regular rate and rhythm. ABDOMEN: Soft, nontender. EXTREMITIES: No clubbing or cyanosis. No edema. LABORATORY AND IMAGING DATA: Labs and imaging reviewed. ASSESSMENT AND PLAN: The patient with history of multiple medical conditions. I am currently following for, 1. Anemia. Current hemoglobin improving. She is currently on iron. Recommendation is iron infusion, blood transfusion if hemoglobin drops below 7. 2. Thrombocytopenia. The patient admitted with low platelet count. Current platelet count is normal. Do not recommend any intervention. Avoid thrombocytopenic medication. 3. Pyelonephritis, on antibiotic. We will continue remaining care. We will follow the patient closely. MD SÁNCHEZ Steele/REYNALDO /[id number]
--- NOTE | 2019-02-22 11:31 | NUR ---
DISCUSSED IN BARRIER ROUNDS CONSULT FOR TEO TO DO STENT PLACEMENT. WILL DISCHARGE IN A COUPLE OF DAYS
--- NOTE | 2019-02-22 12:00 | NUR ---
Pt was consented for procedure and taken to OR at this time. 0 s/s of symptoms of acute distress noted.
[2019-02-22] MEDS ORDERED: IOPAMIDOL 610MG/1ML 300 MG/ML VIAL IV ONE (13:27)
[2019-02-22] MEDS ORDERED: B&O 60MG R/S 60 MG SUPP PR ONE (13:27)
--- NOTE | 2019-02-22 14:50 | NUR ---
Pt returned from procedure at this time. Pt had cystoscopy with left retrograde and left stent placement. Pt denies any pain at this time. Family at the bedside.
[2019-02-22] MEDS ORDERED: SEVOFLURANE INHAL SOLN 250 ML PEN BTL ONE (14:56)
[2019-02-22] MEDS ORDERED: LIDOCAINE HCL 2% LOCAL INJ 5 ML SDV VIAL INJ ONE (14:56)
[2019-02-22] MEDS ORDERED: ONDANSETRON HCL INJ 2MG/ML 2ML 2 MG/ML VIAL ONE (14:56)
[2019-02-22] MEDS ORDERED: DEXAMETHASONE SOD PHOS INJ 4 MG/ML VIAL ONE (14:56)
[2019-02-22] MEDS ORDERED: CEFTRIAXONE SOD 1 GM VIAL ONE (14:56)
[2019-02-22] MEDS ORDERED: PROPOFOL IV EMULSION 10 MG/ML 20 ML VIAL ONE (14:56)
--- NOTE | 2019-02-22 17:00 | NUR ---
Pt in bed. Aox4 and able to verbalize needs. Pt denies any pain at this time.
[2019-02-22] MEDS: POTASSIUM CHLORIDE 20 MEQ TAB CR PO SCH (17:02)
--- NOTE | 2019-02-22 19:39 | NUR ---
RECEIVED PT SITTING ON THE CHAIR .PT HAD CYSTOSCOPY WITH LEFT RETROGRADE AND LEFT STENT PLACEMENT .PT DENIES PAIN AT THIS TIME .FAMILY AT THE BEDSIDE .CALL LIGHT WITH IN REACH CONTINUE TO MONITOR.
[2019-02-22] MEDS ORDERED: MIDAZOLAM HCL 2 MG/2 ML VIAL ONE (19:55)
[2019-02-22] MEDS ORDERED: FENTANYL CITRATE/PF 100MCG/2 ML INJ ONE (19:55)
[2019-02-23] VITALS: BP 116/58
--- NOTE | 2019-02-23 00:32 | NUR ---
BLOOD SUGAR 478 GIVEN 14 UNIT OF HUMALOG AND [address] MARTINES [employer] HELPER AND NO NEW ORDER.CALL LIGHT WITH IN REACH
[2019-02-23 03:47] LABS: BASOPHILS % 0.2 % (0.0-1.0); EOSINOPHILS # (AUTO) 0.1 (0.0-0.4); EOSINOPHILS % 0.6 % (0.0-6.0); HEMATOCRIT 25.6 % (34.2-44.1); HEMOGLOBIN 8.8 g/dL (12.0-16.0); LYMPHOCYTES # (AUTO) 1.7 (1.0-3.2); LYMPHOCYTES % 14.6 % (18.0-39.1); MEAN CORPUSCULAR HEMOGLOBIN 28.9 pg (28-32); MEAN CORPUSCULAR HGB CONC 34.4 g/dL (31-35); MEAN CORPUSCULAR VOLUME 83.9 fL (81-99); MONOCYTES % 8.6 % (4.4-11.3); NEUTROPHILS # (AUTO) 8.7 (2.1-6.9); NEUTROPHILS % 75.5 % (38.7-80.0); PLATELET COUNT 278 x10e3/uL (140-360); RED BLOOD COUNT 3.05 x10e6/uL (3.6-5.1); RED CELL DISTRIBUTION WIDTH 12.8 % (11.7-14.4)
[2019-02-23 04:00] VITALS: BP 123/57
[2019-02-23 04:07] LABS: ANION GAP 13.7 mmol/L (8-16); BLOOD UREA NITROGEN 8 mg/dL (7-26); BUN/CREATININE RATIO 11 (6-25); CALCIUM 8.3 mg/dL (8.4-10.2); CARBON DIOXIDE 27 mmol/L (22-29); CHLORIDE 97 mmol/L (98-107); CREATININE, SERUM 0.72 mg/dL (0.57-1.11); EST GLOMERULAR FILTRATION RATE > 60 ML/MIN (60-); GLUCOSE 279 mg/dL (74-118); POTASSIUM 3.7 mmol/L (3.5-5.1); SODIUM 134 mmol/L (136-145)
--- NOTE | 2019-02-23 05:47 | NUR ---
PT RESTING .NO ACUTE DISTRESS NOTED .FAMILY AT THE BEDSIDE .CALL LIGHT WITH IN REACH
--- NOTE | 2019-02-23 06:51 | NUR ---
REPORT GIVEN TO THE ON COMING NURSE
--- NOTE | 2019-02-23 07:21 | NUR ---
PATIENT SITTING AT BED SIDE TALKING TO FAMILY MEMBER, DENIED PAIN AT THIS TIME. LEFT IJ WITH DRESSING INTACT. BED IN LOWER POSITION, CALL LIGHT AT REACH.
[2019-02-23] MEDS: INSULIN LISPRO 100 UNIT/1 ML 3ML VIAL SQ SCH ×4 (07:30→21:22)
[2019-02-23 07:55] VITALS: BP 117/54
[2019-02-23] MEDS: PANTOPRAZOLE SOD 40 MG TABEC PO SCH ×2 (07:58→17:01)
[2019-02-23] MEDS: MAALOX/LIDOCAINE/BENADRYL/NYST 30 ML BTL PO SCH ×3 (07:58→17:01)
[2019-02-23] MEDS: METOCLOPRAMIDE HCL 10 MG TAB PO SCH ×4 (07:58→21:20)
[2019-02-23] MEDS: ATENOLOL 50 MG TAB PO SCH (09:17)
[2019-02-23] MEDS: OYST-CAL-D 500MG TABLET PO SCH ×2 (09:17→17:01)
[2019-02-23] MEDS: FAMCICLOVIR 500 MG TAB PO SCH ×3 (09:17→21:20)
[2019-02-23] MEDS: POTASSIUM CHLORIDE 20 MEQ TAB CR PO SCH (09:17)
[2019-02-23] MEDS: CEFTRIAXONE SOD 1 GM/NS 50 ML 50 ML IV SCH (09:17)
[2019-02-23] MEDS: INSULIN GLARGINE 100 UNITS/ML VIAL SQ SCH ×2 (09:21→21:22)
[2019-02-23] MEDS: IRON SUCROSE 100 MG in SODIUM CHLORIDE 0.9% 100 ML 100 ML IV SCH (09:30)
[2019-02-23 11:25] VITALS: BP 99/67
--- NOTE | 2019-02-23 11:50 | NUR ---
PATIENT AMBULATING IN HALLWAY WITH FAMILY MEMBER, NO COMPLAIN VOICED. WILL CONTINUE TO MONITOR.
[2019-02-23 15:28] VITALS: BP 92/53
--- NOTE | 2019-02-23 16:08 | NUR ---
PATIENT OUT OF BED TO CHAIR TALKING ON THE PHONE, NO DISTRESS NOTED. CALL LIGHT AT REACH.
--- NOTE | 2019-02-23 17:29 | Progress Note ---
DATE: 02/23/2019 SUBJECTIVE: The patient had ureteral stent placed. She is not having fevers. She has no new complaints. PHYSICAL EXAMINATION: VITAL SIGNS: The patient is afebrile. The vital signs are stable. HEENT: Shows no facial swelling or erythema. The nasal mucosa is normal. CARDIAC: Reveals regular rate and rhythm with normal S1 and S2. There are no murmurs or rubs heard. PULMONARY: Auscultation of lungs reveal clear breath sounds bilaterally. There is no wheezing. ABDOMEN: Soft and nontender. There is no rebound or guarding. EXTREMITIES: Show no leg edema or calf tenderness. There is no cyanosis or clubbing. LABORATORY DATA: Electrolytes are within normal limits. White blood cell count is 11.5 and hemoglobin is 8.8. IMPRESSION: 1. Pyelonephritis with sepsis, present on admission. 2. Acute respiratory failure that has resolved. 3. Anemia. 4. Thrombocytopenia. 5. Diabetes. 6. Nephrolithiasis. PLAN: 1. Complete antibiotic therapy. 2. Control blood sugars. 3. Out of bed as tolerated. 4. Discussed disposition with Dr. Arce. Alan Rahman MD [facility]/LUIGIL /[id number]
--- NOTE | 2019-02-23 19:12 | NUR ---
Bedside report walking rounds complete. Pt resting in bed and in no apparent distress. Pt son at bedside and to stay overnight. All safety measures ensured and pt call bajwa near. Pt encouraged to use call bajwa for assistance.
[2019-02-23 20:00] VITALS: BP 131/64
[2019-02-24] VITALS: BP 109/56
[2019-02-24 03:45] LABS: BASOPHILS % 0.3 % (0.0-1.0); EOSINOPHILS # (AUTO) 0.3 (0.0-0.4); EOSINOPHILS % 2.1 % (0.0-6.0); HEMATOCRIT 25.9 % (34.2-44.1); HEMOGLOBIN 8.7 g/dL (12.0-16.0); LYMPHOCYTES # (AUTO) 2.6 (1.0-3.2); LYMPHOCYTES % 20.4 % (18.0-39.1); MEAN CORPUSCULAR HEMOGLOBIN 28.2 pg (28-32); MEAN CORPUSCULAR HGB CONC 33.6 g/dL (31-35); MEAN CORPUSCULAR VOLUME 84.1 fL (81-99); MONOCYTES # (AUTO) 1.5 (0.2-0.8); MONOCYTES % 11.7 % (4.4-11.3); NEUTROPHILS # (AUTO) 8.2 (2.1-6.9); NEUTROPHILS % 64.7 % (38.7-80.0); PLATELET COUNT 417 x10e3/uL (140-360); RED BLOOD COUNT 3.08 x10e6/uL (3.6-5.1)
[2019-02-24 04:00] VITALS: BP 107/54
[2019-02-24 04:08] LABS: ANION GAP 11.5 mmol/L (8-16); BLOOD UREA NITROGEN 7 mg/dL (7-26); BUN/CREATININE RATIO 11 (6-25); CALCIUM 8.1 mg/dL (8.4-10.2); CARBON DIOXIDE 28 mmol/L (22-29); CHLORIDE 100 mmol/L (98-107); CREATININE, SERUM 0.64 mg/dL (0.57-1.11); EST GLOMERULAR FILTRATION RATE > 60 ML/MIN (60-); GLUCOSE 76 mg/dL (74-118); POTASSIUM 3.5 mmol/L (3.5-5.1); SODIUM 136 mmol/L (136-145)
--- NOTE | 2019-02-24 07:03 | NUR ---
Bedside report walking rounds complete with day shift RN. Pt resting in bed and in no apparent distress. All safety measures ensured.
[2019-02-24 07:10] VITALS: BP 120/56
--- NOTE | 2019-02-24 07:10 | NUR ---
PATIENT AMBULATED TO THE RESTROOM AND BACK TO CHAIR. ALL PERSONAL ITEMS CLOSE TO PATIENT. CALL LIGHT AT EASY REACH.
[2019-02-24] MEDS: INSULIN LISPRO 100 UNIT/1 ML 3ML VIAL SQ SCH ×2 (07:30→11:30)
[2019-02-24] MEDS: MAALOX/LIDOCAINE/BENADRYL/NYST 30 ML BTL PO SCH ×2 (07:31→11:56)
[2019-02-24] MEDS: PANTOPRAZOLE SOD 40 MG TABEC PO SCH (07:31)
[2019-02-24] MEDS: METOCLOPRAMIDE HCL 10 MG TAB PO SCH ×2 (07:32→11:56)
[2019-02-24 07:48] LABS: FOLATE 8.4 ng/mL (7.0-15.4)
[2019-02-24 08:07] VITALS: BP 120/56
[2019-02-24] MEDS: IRON SUCROSE 100 MG in SODIUM CHLORIDE 0.9% 100 ML 100 ML IV SCH (08:45)
[2019-02-24] MEDS ORDERED: ATENOLOL50 MG PO (08:55)
[2019-02-24] MEDS ORDERED: Calcium Carbonate PO (08:55)
[2019-02-24] MEDS ORDERED: PROTONIX40 MG/ML PO (08:55)
[2019-02-24] MEDS ORDERED: METOCLOPRAMIDE10 MG PO (08:58)
[2019-02-24] MEDS ORDERED: CARAFATE1 GM PO (08:58)
[2019-02-24] MEDS: INSULIN GLARGINE 100 UNITS/ML VIAL SQ SCH (09:00)
[2019-02-24] MEDS: FAMCICLOVIR 500 MG TAB PO SCH (09:28)
[2019-02-24] MEDS: ATENOLOL 50 MG TAB PO SCH (09:29)
[2019-02-24] MEDS: POTASSIUM CHLORIDE 20 MEQ TAB CR PO SCH (09:29)
[2019-02-24] MEDS: CEFTRIAXONE SOD 1 GM/NS 50 ML 50 ML IV SCH (09:29)
[2019-02-24] MEDS: OYST-CAL-D 500MG TABLET PO SCH (09:29)
--- NOTE | 2019-02-24 11:28 | Progress Note ---
DATE: 02/24/2019 SUBJECTIVE: The patient feels better. She is not having difficulty breathing or coughing. PHYSICAL EXAMINATION: VITAL SIGNS: Stable. CARDIAC: Reveals regular rate and rhythm with normal S1, S2. LUNGS: Auscultation of lungs shows clear breath sounds bilaterally. There is no wheezing. ABDOMEN: Soft, nontender. There is no rebound or guarding. EXTREMITIES: Show no leg edema or calf tenderness. IMPRESSION: 1. Pyelonephritis with severe sepsis that has resolved. 2. Acute respiratory failure that has resolved. 3. Nephrolithiasis requiring stent placement. PLAN: 1. Th patient will be discharged home today. 2. She will continue antibiotics as an outpatient. 3. She will follow up in 7 to 10 days. Alan Rahman MD [facility]/LUIGIL /[id number]
--- NOTE | 2019-02-24 11:32 | NUR ---
PATIENT IN ROOM TALKING TO FAMILY MEMBERS VISITING, NO COMPLAIN VOICED. CALL LIGHT AT EASY REACH.
[2019-02-24 11:54] VITALS: BP 118/58
[2019-02-24] MEDS ORDERED: CIPRO500 MG PO (13:46)
--- NOTE | 2019-02-24 14:10 | NUR ---
PATIENT DISCHARGED HOME. DISCHARGE INSTRUCTIONS, PRESCRIPTIONS, AND FOLLOW UP GIVEN TO PATIENT, SHE VERBALIZED UNDERSTANDING. LEFT IJ REMOVED WITH TIP INTACT, PRESSURE APPLIED TO SITE FOR 5 MINUTES. ALL PERSONAL ITEMS TAKEN WITH PATIENT. REFUSED WHEEL CHAIR, BUT WAS ACCOMPANIED BY HOSPITAL STAFF TO FRONT LOBBY IN STABLE CONDITION.
--- NOTE | 2019-02-24 20:29 | Discharge Summary ---
DISCHARGE DIAGNOSES: Severe sepsis due to pyelonephritis, right pyelonephritis with right hydronephrosis, hypertension, type 2 diabetes. DISCHARGE DIAGNOSES: Severe sepsis due to pyelonephritis, right pyelonephritis with right hydronephrosis, hypertension, type 2 diabetes. HISTORY: The patient has a history of type 2 diabetes, hypertension, hypercholesterolemia. SURGICAL HISTORY: Noncontributory. FAMILY HISTORY: Noncontributory. SOCIAL HISTORY: Noncontributory. HOSPITAL COURSE: A 53-year-old female, seen initially at [facility] with pyelonephritis, became hypotensive overnight despite 5 L IV bolus. She has acute kidney injury, fever, elevated WBC with the urinary source. Outside CT showed right pyelo with hydronephrosis. On admission, the patient started on IV Merrem and IV fluids. HIDA scan was negative. Chest x-ray showed radiographic findings may represent bilateral atypical pneumonia in this patient with fever. CT of the abdomen on 02/12, showed bilateral interstitial edema, small pleural effusions, small ascites, anasarca with volume overload, swelling of the left kidney with associated hydroureteronephrosis without visualized obstructing calcified stone. Urine culture came back positive for Enterobacter aerogenes. The patient had a UTI present on admission. Blood cultures were negative. Repeat urine culture on 02/[address] of the abdomen on 02/18, showed findings compatible with severe mild right-sided pyelonephritis. Unchanged mild left hydronephrosis with urethral inflammation. Although the patient looked better, the CT of the abdomen did not look better, so Urology decided to go ahead and put a stent in. After the stent, the patient's fevers resolved. The patient is feeling much better. She will be discharged home with 10 days of Cipro per ID recommendation and she will follow up with Urology in 1 to 2 weeks and primary care in 1 to 2 weeks. The patient understands discharge instructions and agrees to plan. Dictated by Eunice Marie NP MD ERROL Randhawa/MODL /[id number]
--- NOTE | 2019-03-17 16:18 | Operative Report ---
DATE OF PROCEDURE: 02/22/2019 SURGEON: Juvenal Buck MD PREOPERATIVE DIAGNOSES: Left hydronephrosis and recent pyelonephritis. POSTOPERATIVE DIAGNOSES: Left hydronephrosis and recent pyelonephritis. OPERATIVE PROCEDURES: 1. Cystoscopy. 2. Left retrograde pyelogram. 3. Placement of left ureteral stent. ANESTHESIA: General anesthesia. ESTIMATED BLOOD LOSS: Minimal. INDICATIONS: Ms. Lauren Razo is a 53-year-old woman, who was recently admitted to the hospital with left pyelonephritis, which has persisted despite culture specific IV antibiotics. Recent repeat CAT scan revealed moderate hydronephrosis. She now presents for potential diagnosis and management of this problem. PROCEDURE IN DETAIL: The patient was brought in the operating room, placed in supine position. After initiation of general anesthesia, was placed in dorsal lithotomy position and prepped and draped in the usual sterile fashion. Cystourethroscopy was performed using 22-Danish cystoscope. The anterior and posterior urethra were noted to be normal. The bladder was entered without difficulty. Upon entrance into the bladder, the cystitis cystica consistent with recent urinary tract infection. The ureteral orifices were in normal anatomical position and produce clear efflux. Using a 5-Danish open-ended catheter, a left retrograde pyelogram was performed. This revealed a moderate hydronephrosis on that side, but no obvious filling defect, calcification, stone, or obstruction. Under fluoroscopic guidance. A wire was placed up into the left renal pelvis and a 6-Danish double-pigtail stent was placed such that one coil was in the renal pelvis and subsequent coil was in the bladder. The bladder was drained in its entirety and the cystoscope and sheath was removed. The string was allowed to exit the urethral meatus. The patient was returned to supine position and anesthesia was reversed. She was transferred to a bed and taken to the postanesthesia care unit in good condition. Of note, the needle and instrument count were correct at the conclusion of the case. Juvenal Buck MD [facility]/MODL /[id number]
== END 2019-02-24 14:34 | disposition home or self-care (01) | DRG 871 ==
LOC: ICU 01:53 → MED/SURG3 02-16 14:14
PROVIDERS: ADMIT Internal Medicine; ATTEND Internal Medicine
PROC: 5A1945Z Respiratory Ventilation, 24-96 Consecutive Hours (ICD-10-PCS; principal; 2019-02-13)
PROC: 0BH18EZ Insertion of Endotracheal Airway into Trachea, Via Natural or Artificial Opening Endoscopic (ICD-10-PCS; 2019-02-13)
PROC: 0D9670Z Drainage of Stomach with Drainage Device, Via Natural or Artificial Opening (ICD-10-PCS; 2019-02-13)
PROC: 5A09557 Assistance with Respiratory Ventilation, Greater than 96 Consecutive Hours, Continuous Positive Airway Pressure (ICD-10-PCS; 2019-02-13)
PROC: 02HV33Z Insertion of Infusion Device into Superior Vena Cava, Percutaneous Approach (ICD-10-PCS; 2019-02-13)
PROC: 3E043XZ Introduction of Vasopressor into Central Vein, Percutaneous Approach (ICD-10-PCS; 2019-02-13)
PROC: 302 Administration, Circulatory, Transfusion (ICD-10-PCS; 2019-02-14)
PROC: 30243N0 Transfusion of Autologous Red Blood Cells into Central Vein, Percutaneous Approach (ICD-10-PCS; 2019-02-18)
PROC: BT1F1ZZ Fluoroscopy of Left Kidney, Ureter and Bladder using Low Osmolar Contrast (ICD-10-PCS; 2019-02-22)
PROC: 0T9780Z Drainage of Left Ureter with Drainage Device, Via Natural or Artificial Opening Endoscopic (ICD-10-PCS; 2019-02-22)
DX: A41.9 Sepsis, unspecified organism (principal); R65.21 Severe sepsis with septic shock; J96.00 Acute respiratory failure, unspecified whether with hypoxia or hypercapnia; N17.9 Acute kidney failure, unspecified; N13.6 Pyonephrosis; B96.89 Other specified bacterial agents as the cause of diseases classified elsewhere; I12.9 Hypertensive chronic kidney disease with stage 1 through stage 4 chronic kidney disease, or unspecified chronic kidney disease; E11.22 Type 2 diabetes mellitus with diabetic chronic kidney disease; N18.3 Chronic kidney disease, stage 3 (moderate); Z79.4 Long term (current) use of insulin; E78.00 Pure hypercholesterolemia, unspecified; R00.0 Tachycardia, unspecified; D69.6 Thrombocytopenia, unspecified; D50.0 Iron deficiency anemia secondary to blood loss (chronic); E87.6 Hypokalemia; Z78.1 Physical restraint status; E83.42 Hypomagnesemia; S00.522A Blister (nonthermal) of oral cavity, initial encounter
CPT/HCPCS: 36415; 36600; 71045; 74176; 74177; 74420; 78227; 80048; 80051; 80053; 80076; 81001; 82270; 82607; 82728; 82746; 82805; 82948; 83540; 83605; 83690; 83735; 83880; 84466; 85025; 86850; 86900; 86920; 87040; 87086; 87186; 87449; 87493; 93005; 93306; 94002; 94003; 96372; 97139; A9537; C1758; C2617; J0696; J1100; J1200; J1756; J1815; J1940; J1956; J2001; J2185; J2250; J2270; J2405; J2550; J2765; J3010; J3370; J3475; J3480; J7030; J7050; P9016; P9034; P9047; Q9967

== ENCOUNTER 2019-05-29 00:47 | Inpatient (IN) | payer BC ==
[2019-05-29] VITALS (9 sets, daily range): BP systolic 97–162; BP diastolic 55–86
[~2019-05-29] VITALS: Ht 154.9 cm; Wt 69.9 kg
[~2019-05-29 00:47] MED LIST: ATENOLOL50 MG PO; ATORVASTATIN CA20 MG PO; CARAFATE1 GM PO; CIPRO500 MG PO; Calcium Carbonate PO; LANTUS 3ML100 UNITS/ SC; LISINOPRIL2.5 MG PO; METOCLOPRAMIDE10 MG PO; PROTONIX40 MG/ML PO; XIGDUO PO; vascepa PO
--- OUTSIDE RECORDS SUMMARY | 2019-05-29 00:50 | XMS REPORT ---
[facility] Address Unknown Phone Unavailable Care Team Providers Care [employer] Clerk Name Role Phone SEVERIANO QUIROGA Unavailable Unavailable Problems This patient has no known problems. Allergies, Adverse Reactions, Alerts This patient has no known allergies or adverse reactions. Medications This patient has no known medications. Results Test Description Test Time Test Comments Text Results Atomic Results Result Comments CT ABDOMEN/PELVIS W 2019-02-18 10:20:00 [place] [address] Patient Name: SHAYY GARCIA MR #: [id number] : 1965 Age/Sex: 53/F Req #: [id number] Adm Physician: SEVERIANO QUIROGA MD Ordered by: Danny Abrams LINE ASSIGNER Report #: [id number] Location: MED/SURG3 Room/Bed: [facility] Procedure: [id number] CT/CT ABDOMEN/PELVIS W Exam Date: 02/18/19 Exam Time: 1001 REPORT STATUS: Signed EXAMINATION: CT of the abdomen and pelvis with contrast . TECHNIQUE: Spiral CT images of the abdomen and pelvis were performed from the lung bases to the lesser trochanters after the intravenous administration of 100 cc Isovue-370. Coronal and sagittal reformatted images were obtained. COMPARISON: CT abdomen and pelvis without contrast 02/12/2019 CLINICAL HISTORY:Abdominal pain, urosepsis, bilateral nephritis DISCUSSION: ABDOMEN/PELVIS: LOWER THORAX:Interval increase in size of small bilateral pleural effusions with passive atelectasis of the posterior basal segments of the lower lobes. No pericardial effusion. HEPATOBILIARY: Geographic hypoattenuation along the falciform ligament similar to prior, compatible with focal steatosis. Otherwise no focal hepatic lesion or intrahepatic biliary ductal dilatation. The gallbladder is unremarkable. SPLEEN: No splenomegaly. PANCREAS: No focal masses or ductal dilatation. ADRENALS: No adrenal nodules. KIDNEYS/URETERS: Unchanged mild left hydronephrosis. Large wedge-shaped foci of nonenhancement of the left renal parenchyma in the upper pole medially and laterally, as well as the interpolar region. Urothelial enhancement of the upper collecting system and ureter. No discrete obstructing lesion. Overall decreased perfusion/enhancement of the left kidney relative to the right. More subtle wedge-shaped foci of hypoattenuation in the right kidney for example on coronal series 301 image 48 in the lower pole. PELVIC ORGANS/BLADDER: Urinary bladder is unremarkable. The uterus is not identified and has presuma nella been removed. PERITONEUM/RETROPERITONEUM: Interval decrease in small volume ascites. No pneumoperitoneum. LYMPH NODES: No pelvic sidewall, retroperitoneal, or mesenteric lymphadenopathy. Lymph nodes along the left renal hilum are increased in number but not enlarged by CT criteria. VESSELS: Abdominal aorta, major branch vessels, and iliac arterial systems are patent without aneurysmal dilatation. Portal vein, splenic vein, and central superior mesenteric vein are patent. GI TRACT: The large bowel shows no distention or wall thickening, though the descending and sigmoid colon are collapsed and poorly evaluated. The appendix is normal. No small bowel dilatation to suggest obstruction. BONES AND SOFT TISSUE: No osseous destructive lesion. Left lower quadrant omental calcification likely represents a lymph node or sequela of prior trauma. Diffuse anasarca. IMPRESSION: Findings compatible with severe left and mild right-sided pyelonephritis. Unchanged mild left hydronephrosis with urothelial inflammation. No discrete obstructing lesion. Bilateral pleural effusions, ascites, and anasarca in keeping with fluid overload. Signed b y: Dr. Joss Keating M.D. on 02/18/2019 10:31 AM Dictated By: JOSS KEATING MD 1031 Transcribed By: MIKE on 02/18/19 1031 COPY TO: DANNY ABRAMS NP CHEST SINGLE (PORTABLE) 2019-02-15 05:59:00 [place] [id number] [place] [address] Patient Name: SHAYY GARCIA MR #: [id number] : 1965 Age/Sex: 53/F Req #: [id number] Adm Physician: SEVERIANO QUIROGA MD Ordered by: MATEO GARCIA MD Report #: [id number] Location: ICU Room/Bed: ICU [facility] Procedure: [id number] DX/CHEST SINGLE (PORTABLE) Exam Date: 02/15/19 Exam Time: 0540 REPORT STATUS: Signed Examination: Single AP view of the chest. COMPARI SON: 02/14/2019 INDICATION: Respiratory failure DISCUSSION: Lines/tubes: Endotracheal tube with distal tip approximately 2.5 cm from the jael. Left IJ catheter with tip overlying the cavoatrial junction. Lungs: Mild lung base atelectasis. Pleura: There is no pleural effusion or pneumothorax. Heart and mediastinum: The heart and the mediastinum are unremarkable. Bones and soft tissues: No acute bony abnormalities. Degenerative changes in the thoracic spine. IMPRESSION: Lung base atelectasis Signed by: Dr. Raiza Lopez M.D. on 02/15/2019 6:00 AM Dictated By: RAIZA LOPEZ MD 9 Transcribed By: MIKE on 02/15/19599 COPY TO: MATEO GARCIA MD CHEST SINGLE (PORTABLE) 2019-02-14 06:07:00 [place] [address] Patient Name: SHAYY GARCIA MR #: [id number] : 1965 Age/Sex: 53/F Req #: [id number] Adm Physician: SEVERIANO QUIROGA MD Ordered by: MATEO GARCIA MD Report #: [id number] Location: ICU Room/Bed: ICU [facility] Procedure: [id number] DX/CHEST SINGLE (PORTABLE) Exam Date: 02/14/19 Exam Time: 514 REPORT STATUS: Signed EXAMINATION: CHEST SINGLE (PORTABLE) COMPARIS ON: Chest x-ray 01/13/2019 INDICATION: Intubated Resp Failure [id number] DISCUSSION: Frontal view of the chest obtained at 0515 hours. HEART AND MEDIASTINUM: The cardiomediastinal silhouette is unremarkable. LINES: Endotracheal tube terminates 3 to 4 cm above the jael. Left IJ catheter terminates in the SVC. Enteric tube extends past the diaphragm. LUNGS: Mild posterior bibasilar atelectasis. No pneumonia or pulmonary edema. PLEURA: No pleural effusion or pneumothorax. BONES AND SOFT TISSUES: No focal osseous lesion. The soft tissues are normal. IMPRESSION: Support devices as described above. No pneumothorax. Bibasilar atelectasis. Signed by: Dr. Sun Romano MD on 02/14/2019 6:08 AM Dictated By: SUN ROMANO MD 7 Transcribed By: MIKE on 02/14/19607 COPY TO: MATEO GARCIA MD CHEST XRAY LINE PLACEMENT 2019-02-13 19:34:00 [place] [address] Patient Name: SHAYY GARCIA MR #: [id number] : 1965 Age/Sex: 53/F Req #: [id number] Adm Physician: SEVERIANO QUIROGA MD Ordered by: MATEO GARCIA MD Report #: [id number] Location: ICU Room/Bed: ICU [facility] Procedure: [id number] DX/CHEST XRAY LINE PLACEMENT Exam Date: 02/13/19 Exam Time: 1914 REPORT STATUS: Signed EXAMINATION: CHEST XRAY LINE PLACEMENT COMPAR STEFANIA: Chest x-ray 1733 hours INDICATION: Line placement CENTRAL LINE PLACEMENT [id number] DISCUSSION: Frontal view of the chest obtained at 1924 hours. The upper chest is underexposed. The lung apices are not visible. HEART AND MEDIASTINUM: The heart is normal in size LINES: Endotracheal tube terminates approximately 3 cm above the jael. Left IJ catheter terminates in the SVC. Enteric tube extends past the diaphragm. LUNGS: Interstitial edema improved somewhat in the upper lung zones. Retrocardiac airspace disease is similar PLEURA: No pneumothorax on this image. Small pleural effusions are suspected BONES AND SOFT TISSUES: No focal osseous lesion. The soft tissues are normal. IMPRESSION: Suboptimal evaluation of the lung apices for pneumothorax. Support devices as described above. Improved interstitial edema in the upper lung zones. Signed by: Dr. Sun Romano MD on 02/13/2019 7:36 PM Dictated By: SUN ROMANO MD 35 Transcribed By: MIKE on 02/13/191935 COPY TO: MATEO GARCIA MD CHEST SINGLE (PORTABLE) 2019-02-13 17:46:00 [place] [address] Patient Name: SHAYY GARCIA MR #: [id number] : 1965 Age/Sex: 53/F Req #: [id number] Adm Physician: SEVERIANO QUIROGA MD Ordered by: MATEO GARCIA MD Report #: [id number] Location: ICU Room/Bed: ICU [facility] Procedure: [id number] DX/CHEST SINGLE (PORTABLE) Exam Date: 02/13/19 Exam Time: 1725 REPORT STATUS: Signed Examination: Single AP view of the chest. COMPARI SON: Portable chest 02/12/2019 INDICATION: Urosepsis, intubation IMPRESSION: 1. Lines and Tubes: Interval placement of endotracheal tube, which has distal tip at the entrance of the right main stem bronchus. Recommend retraction of at least 2 cm.. Interval placement of enteric tube which is noted below the left hemidiaphragm, however, tip is not visualized. 2. Bilateral diffuse interstitial opacities, may reflect interstitial edema. Left retrocardiac opacity and pleural effusion. 3. Cardiomediastinal silhouette is normal. Central pulmonary venous congestion. 4. No acute bony abnormalities. Signed by: Dr. Kennedy Zarate M.D. on 02/13/2019 5:53 PM Dictated By: KENNEDY ZARATE MD 52 Transcribed By: MIKE on 02/13/191752 COPY TO: MATEO GARCIA MD HEPTOBILIARY W PHARM 2019-02-12 23:52:00 [place] [address] Patient Name: SHAYY GARCIA MR #: [id number] : 1965 Age/Sex: 53/F Req #: [id number] Adm Physician: SEVERIANO QUIROGA MD Ordered by: Danny Abrams NP Report #: [id number] Location: ICU Room/Bed: ICU 191- Procedure: NM/HEPTOBILIARY W PHARM Exam Date: 02/12/19 Exam Time: 2129 REPORT STATUS: Signed EXAM: HIDA Scan with Morphine Challenge INDICATIO N: Abdominal pain Report: Following the administration of 6 mCi of Tc-99m mebrofenin, dynamic images of the abdomen in the anterior projection were obtained through 60 minutes. Morphine sulfate 2 mg was administered intravenously and additional images were obtained through 30 minutes. Perfusion of the liver is normal. Extraction of tracer from the blood pool by the liver parenchyma is normal. Tracer appears promptly with in the biliary tract. Tracer is seen in the small bowel by approximately 20 minutes post injection of the tracer. The gallbladder does not fill during the initial 60 minutes of imaging but does fill following administration of morphine. Impression: Filling of the gallbladder excludes acute cystic duct obstruction/acute cholecystitis. Signed by: Dr. Clay Gonzalez MD on 02/12/2019 11:56 PM Dictated By: CLAY GONZALEZ MD 6684 Transcribed By: MIKE on 02/12/19 2355 COPY TO: DANNY ABRAMS LINE ASSIGNER CT ABDOMEN/PELVIS WO 2019-02-12 14:44:00 [place] [address] Patient Name: SHAYY GARCIA MR #: [id number] : 1965 Age/Sex: 53/F Req #: [id number] Adm Physician: SEVERIANO QUIROGA MD Ordered by: Danny Abrams LINE ASSIGNER Report #: [id number] Location: ICU Room/Bed: ICU 191-1 Procedure: [id number] CT/CT ABDOMEN/PELVIS WO Exam Date: 02/12/19 Exam Time: 1320 REPORT STATUS: Signed EXAM: CT Abdomen and Pelvis WITHOUT contrast INDIC ATION: ABD PAIN/ STONE PROTOCOL [id number] COMPARISON: Chest radiograph 02/12/2019 TECHNIQUE: Abdomen and pelvis were scanned utilizing a multidetector helical scanner from the lung base to the pubic symphysis without administration of IV contrast. Absence of intravenous contrast decreases sensitivity for detection of focal lesions and vascular pathology. Coronal and sagittal reformations were obtained. Routine protocol was performed. IV CONTRAST: None. ORAL CONTRAST: Water RADIATION DOSE: Total DLP: 421.3 mGy*cm Estimated effective dose: (DLP x 0.015 x size factor) mSv COMPLICATIONS: None FINDINGS: LINES and TUBES: None. LOWER THORAX: Small bilateral pleural effusions. Bilateral interstitial edema. No consolidations or centrilobular nodules to suggest infection. HEPATOBILIARY: No focal hepatic lesions. No biliary ductal dilation. GALLBLADDER: No radio-opaque stones or sludge. No wall thickening. SPLEEN: No splenomegaly. PANCREAS: No focal masses or ductal dilatation. ADRENALS: No adrenal nodules KIDNEYS/URETERS: The right kidney is normal in size and density without hydronephrosis or calcified stones. There is swelling of the left kidney with associated mild hydroureteronephrosis. No calcified stones are visualized. GI TRACT: No abnormal distention, wall thickening, or evidence of bowel obstruction. Appendix is normal. PELVIC ORGANS/BLADDER: Maharaj catheter within a decompressed urinary bladder. LYMPH NODES: No lymphadenopathy. VESSELS: Unremarkable. PERITONEUM / RETROPERITONEUM: No free air. Small amount of low attenuation free fluid in the pelvis. BONES: Unremarkable. SOFT TISSUES: Diffuse anasarca. IMPRESSION: 1. Bilateral interstitial edema, small pleural effusions, small ascites and anasarca consistent with volume overload. 2. No findings to suggest infection in the lung bases. 3. Swelling of the left kidney with associated hydroureteronephrosis without visualized obstructing calcified stones. This may reflect infection. 4. The compressed gallbladder without containing calcified stones or wall thickening. Signed by: Dr. Anita Granados M.D. on 02/12/2019 2:49 PM Dictated By: ANITA GRANADOS MD 144 Transcribed By: MIKE on 02/12/19 144 COPY TO: DANNY ABRAMS LINE ASSIGNER CHEST SINGLE (PORTABLE) 2019-02-12 13:18:00 [place] [address] Patient Name: SHAYY GARCIA MR #: [id number] : 1965 Age/Sex: 53/F Req #: [id number] Adm Physician: SEVERIANO QUIROGA MD Ordered by: Danny Abrams LINE ASSIGNER Report #: [id number] Location: ICU Room/Bed: ICU [facility] Procedure: [id number] DX/CHEST SINGLE (PORTABLE) Exam Date: 02/12/19 Exam Time: 1255 REPORT STATUS: Signed EXAMINATION: CHEST SINGLE (PORTABLE) INDICA TION: FEVER [id number] COMPARISON: None FINDINGS: AP view TUBES and LINES: None. LUNGS: Lungs are well inflated. Diffuse bilateral reticulation of the lungs mainly in the posterior lung bases and perihilar region. PLEURA: No pleural effusion or pneumothorax. HEART AND MEDIASTINUM: The cardiomediastinal silhouette is unremarkable.. BONES AND SOFT TISSUES: No acute osseous lesion. Soft tissues are unremarkable. UPPER ABDOMEN: No free air under the diaphragm. IMPRESSION: Radiographic findings may represent bilateral atypical pneumonia in this patient with fever. Interstitial edema can have a similar appearance. Signed by: Dr. Anita Granados M.D. on 02/12/2019 1:19 PM Dictated By: ANITA GRANADOS MD 1312 Transcribed By: MIKE on 02/12/19 1319 COPY TO: DANNY ABRAMS NP
[2019-05-29] MEDS ORDERED: ONDANSETRON HCL INJ 2MG/ML 2ML 2 MG/ML VIAL IV STA (01:12)
[2019-05-29] MEDS ORDERED: KETOROLAC TROMETHAMINE 30 MG/ML VIAL IV STA (01:12)
--- NOTE | 2019-05-29 01:27 | NUR ---
BLOOD COLLECTED AND SENT, UNABLE TO OBTAIN IV ACCESS. AWARE, PT TO CT
[2019-05-29 01:42] LABS: BASOPHILS % 0.4 % (0.0-1.0); EOSINOPHILS # (AUTO) 0.3 (0.0-0.4); HEMOGLOBIN 12.3 g/dL (12.0-16.0); LYMPHOCYTES # (AUTO) 3.2 (1.0-3.2); LYMPHOCYTES % 32.6 % (18.0-39.1); MEAN CORPUSCULAR HEMOGLOBIN 28.8 pg (28-32); MEAN CORPUSCULAR HGB CONC 32.4 g/dL (31-35); MONOCYTES # (AUTO) 0.7 (0.2-0.8); MONOCYTES % 7.2 % (4.4-11.3); NEUTROPHILS # (AUTO) 5.6 (2.1-6.9); NEUTROPHILS % 56.6 % (38.7-80.0); PLATELET COUNT 411 x10e3/uL (140-360); RED BLOOD COUNT 4.27 x10e6/uL (3.6-5.1)
[2019-05-29 01:57] LABS: BILIRUBIN,URINE NEGATIVE (NEGATIVE); CLARITY,URINE SL CLOUDY (CLEAR); COLOR,URINE YELLOW (YELLOW); KETONES,URINE NEGATIVE (NEGATIVE); LEUKOCYTE ESTERASE ,URINE NEGATIVE (NEGATIVE); NITRITE,URINE POSITIVE (NEGATIVE); PROTEIN,URINE DIPSTICK NEGATIVE (NEGATIVE); URINE UROBILINOGEN 0.2 mg/dL (0.2 - 1)
[2019-05-29 02:00] LABS: ANION GAP 16.2 mmol/L (8-16); BLOOD UREA NITROGEN 20 mg/dL (7-26); BUN/CREATININE RATIO 24 (6-25); CALCIUM 10.1 mg/dL (8.4-10.2); CARBON DIOXIDE 22 mmol/L (22-29); CHLORIDE 104 mmol/L (98-107); CREATININE, SERUM 0.84 mg/dL (0.57-1.11); EST GLOMERULAR FILTRATION RATE > 60 ML/MIN (60-); GLUCOSE 151 mg/dL (74-118); POTASSIUM 4.2 mmol/L (3.5-5.1); SODIUM 138 mmol/L (136-145)
[2019-05-29 02:21] LABS: BACTERIA,URINE MANY /HPF; EPITHELIAL CELLS,URINE MANY /LPF
--- NOTE | 2019-05-29 02:40 | Diagnostic Imaging Report ---
EXAM: CT Abdomen and Pelvis WITHOUT contrast INDICATION: Pain in right lower back COMPARISON: Abdominal CT 02/18/2019. TECHNIQUE: Abdomen and pelvis were scanned utilizing a multidetector helical scanner from the lung base to the pubic symphysis without administration of IV contrast. Absence of intravenous contrast decreases sensitivity for detection of focal lesions and vascular pathology. Coronal and sagittal reformations were obtained. Routine protocol was performed. IV CONTRAST: None ORAL CONTRAST: None COMPLICATIONS: None RADIATION DOSE: Total DLP: 267 mGy*cm Estimated effective dose: (DLP x 0.015 x size factor) mSv CTDIvol has been reviewed. It is below the limits set by the Radiation Protocol Committee (RPC). Dose modulation, iterative reconstruction, and/or weight based adjustment of the mA/kV was utilized to reduce the radiation dose to as low as reasonably achievable. FINDINGS: LINES and TUBES: None. LOWER THORAX: Unremarkable HEPATOBILIARY: No focal hepatic lesions. No biliary ductal dilation. GALLBLADDER: No radio-opaque stones or sludge. No wall thickening. SPLEEN: No splenomegaly. PANCREAS: No focal masses or ductal dilatation. ADRENALS: No adrenal nodules KIDNEYS/URETERS: Decreased size of the left kidney relative to abdominal CT on 02/18/2019, now appears normal in size. Mild left perinephric fat stranding and prominence of the left pelvis and ureter. Trace right perinephric fat stranding. No hydronephrosis. No cystic or solid mass lesions. No stones. GI TRACT: No abnormal distention, wall thickening, or evidence of bowel obstruction. Appendix is normal. PELVIC ORGANS/BLADDER: Mild circumferential bladder wall thickening and perivesicular fat stranding. The bladder is underdistended. Hysterectomy. No adnexal masses. LYMPH NODES: No lymphadenopathy. VESSELS: Unremarkable. PERITONEUM / RETROPERITONEUM: Stable focal calcification in the left lower anterior abdomen may represent a torsed calcified epiploic appendage. No free air or fluid. BONES: Unremarkable. SOFT TISSUES: There is a fat containing para-umbilical hernia. IMPRESSION: Findings suggestive of acute/recurrent left pyelonephritis. There are also findings suggestive of urinary bladder cystitis Signed by: Jatin Perkins DO on 05/29/2019 2:37 AM
[2019-05-29] MEDS ORDERED: ONDANSETRON HCL INJ 2MG/ML 2ML 2 MG/ML VIAL IV PRN (03:00)
[2019-05-29] MEDS ORDERED: MORPHINE SULFATE 2 MG/ML SYR 1ML IV PRN (03:00)
[2019-05-29] MEDS ORDERED: DEXTROSE 50% SYRINGE 50 ML IV PRN (03:00)
[2019-05-29] MEDS ORDERED: MEROPENEM 1GM 100 ML IV ONE (03:05)
[2019-05-29] MEDS: SODIUM CHLORIDE 0.9% 1000ML 1,000 ML IV SCH ×3 (03:14→19:18)
[2019-05-29] MEDS: MEROPENEM 1GRAM 1 GM in SODIUM CHLORIDE 0.9% 100 ML 100 ML IV SCH ×2 (03:14→05:30)
[2019-05-29] MEDS ORDERED: TRULICITY SC (03:18)
[2019-05-29] MEDS ORDERED: HYDRALAZINE HCL 20 MG/ML VIAL IV PRN (05:45)
[2019-05-29] MEDS ORDERED: MELATONIN 5 MG TABLET PO PRN (05:45)
[2019-05-29] MEDS ORDERED: CEFTRIAXONE SOD 1 GM/NS 50 ML 50 ML IV SCH (05:45)
[2019-05-29] MEDS ORDERED: ACETAMINOPHEN 325 MG TAB PO PRN (05:45)
[2019-05-29] MEDS: INSULIN REGULAR, HUMAN 100 UNIT/1 ML 3ML VIAL SQ SCH ×4 (07:30→20:37)
[2019-05-29] MEDS: FAMOTIDINE 20 MG TAB PO SCH ×2 (07:45→16:49)
[2019-05-29] MEDS: MORPHINE SULFATE 2 MG/ML SYR 1ML IV PRN ×2 (07:46→11:46)
--- NOTE | 2019-05-29 08:39 | NUR ---
Esther with Dr Buck office notified of consult
[2019-05-29] MEDS: GABAPENTIN 100 MG CAP PO SCH ×3 (09:11→20:35)
[2019-05-29] MEDS: MEROPENEM 500MG/ NS 50ML 50 ML IV SCH ×3 (09:48→20:43)
[2019-05-29] MEDS: HYDROCODONE/APAP 5MG-325MG TAB PO PRN (11:04)
[2019-05-29] MEDS ORDERED: MEROPENEM 500MG 500 MG in SODIUM CHLORIDE 0.9% 50ML 50 ML IV SCH (14:00)
[2019-05-29] MEDS ORDERED: MAGNESIUM HYDROXIDE 30 ML UDC PO NR (14:15)
[2019-05-30] MEDS: SODIUM CHLORIDE 0.9% 1000ML 1,000 ML IV SCH (04:05)
[2019-05-30] MEDS: MEROPENEM 500MG/ NS 50ML 50 ML IV SCH ×3 (04:53→22:12)
[2019-05-30 05:33] LABS: BASOPHILS # (AUTO) 0.1 (0.0-0.1); BASOPHILS % 0.7 % (0.0-1.0); EOSINOPHILS # (AUTO) 0.4 (0.0-0.4); EOSINOPHILS % 4.7 % (0.0-6.0); HEMATOCRIT 35.3 % (34.2-44.1); HEMOGLOBIN 11.6 g/dL (12.0-16.0); LYMPHOCYTES # (AUTO) 2.6 (1.0-3.2); LYMPHOCYTES % 34.1 % (18.0-39.1); MEAN CORPUSCULAR HEMOGLOBIN 28.6 pg (28-32); MEAN CORPUSCULAR HGB CONC 32.9 g/dL (31-35); MEAN CORPUSCULAR VOLUME 86.9 fL (81-99); MONOCYTES # (AUTO) 0.6 (0.2-0.8); MONOCYTES % 7.7 % (4.4-11.3); NEUTROPHILS % 52.5 % (38.7-80.0); PLATELET COUNT 381 x10e3/uL (140-360); RED BLOOD COUNT 4.06 x10e6/uL (3.6-5.1); RED CELL DISTRIBUTION WIDTH 11.7 % (11.7-14.4)
[2019-05-30 05:51] LABS: ANION GAP 9.8 mmol/L (8-16); BLOOD UREA NITROGEN 12 mg/dL (7-26); BUN/CREATININE RATIO 18 (6-25); CALCIUM 9.2 mg/dL (8.4-10.2); CARBON DIOXIDE 27 mmol/L (22-29); CHLORIDE 106 mmol/L (98-107); CHOL/HDL RATIO 5.3 (3.0-3.6); CHOLESTEROL 179 MD/DL (0-199); CREATININE, SERUM 0.65 mg/dL (0.57-1.11); EST GLOMERULAR FILTRATION RATE > 60 ML/MIN (60-); GLUCOSE 121 mg/dL (74-118); HDL CHOLESTEROL 34 MG/DL (40-60); LDL CHOLESTEROL 110 MG/DL (60-130); POTASSIUM 3.8 mmol/L (3.5-5.1); SODIUM 139 mmol/L (136-145); TRIGLYCERIDES 174 MG/DL (0-149)
[2019-05-30] MEDS: INSULIN REGULAR, HUMAN 100 UNIT/1 ML 3ML VIAL SQ SCH ×4 (07:30→21:00)
[2019-05-30 07:37] VITALS: BP 146/85
[2019-05-30 09:00] VITALS: BP 146/85
[2019-05-30] MEDS: AMLODIPINE BESYLATE 10 MG TAB PO SCH (09:30)
[2019-05-30] MEDS: GABAPENTIN 100 MG CAP PO SCH ×3 (09:30→21:04)
[2019-05-30] MEDS: FAMOTIDINE 20 MG TAB PO SCH ×2 (09:31→16:33)
--- NOTE | 2019-05-30 11:18 | NUR ---
Called Dr. Buck office, for consult, his trade union secretary informed me he is not taking any consults at this time until the 06/06/19. Made Eunice Marie aware, attending will manage patient.
--- NOTE | 2019-05-30 11:21 | NUR ---
Called Eunice Marie, made aware patient wants a laxative,received orders to give Colace 100mg PO twice daily.
[2019-05-30 12:58] VITALS: BP 131/66
[2019-05-30] MEDS ORDERED: SODIUM CHLORIDE 0.9% 250ML 250 ML ONE (13:12)
[2019-05-30 16:43] VITALS: BP 136/73
[2019-05-30] MEDS: DOCUSATE SODIUM 100 MG CAP PO SCH (16:43)
--- NOTE | 2019-05-30 19:00 | NUR ---
Walking rounds done and report received. Patient is ambulating in room without any c/o pain or discomfort. Spouse at the bedside. POC discussed in [place]. She was instructed to call for assistance as needed and verbalized understanding. Call bajwa within reach.
[2019-05-30 19:30] VITALS: BP 146/81
[2019-05-30 20:51] VITALS: BP 146/81
[2019-05-30] MEDS: HYDROCODONE/APAP 5MG-325MG TAB PO PRN (22:25)
[2019-05-31 00:01] VITALS: BP 135/75
[2019-05-31 03:42] VITALS: BP 130/76
[2019-05-31 03:45] LABS: BASOPHILS # (AUTO) 0.1 (0.0-0.1); BASOPHILS % 0.7 % (0.0-1.0); EOSINOPHILS # (AUTO) 0.4 (0.0-0.4); EOSINOPHILS % 5.5 % (0.0-6.0); HEMATOCRIT 33.8 % (34.2-44.1); HEMOGLOBIN 11.4 g/dL (12.0-16.0); LYMPHOCYTES # (AUTO) 3.4 (1.0-3.2); LYMPHOCYTES % 46.1 % (18.0-39.1); MEAN CORPUSCULAR HEMOGLOBIN 29.4 pg (28-32); MEAN CORPUSCULAR HGB CONC 33.7 g/dL (31-35); MEAN CORPUSCULAR VOLUME 87.1 fL (81-99); MONOCYTES # (AUTO) 0.7 (0.2-0.8); MONOCYTES % 9.3 % (4.4-11.3); NEUTROPHILS # (AUTO) 2.8 (2.1-6.9); NEUTROPHILS % 38.1 % (38.7-80.0); PLATELET COUNT 366 x10e3/uL (140-360); RED BLOOD COUNT 3.88 x10e6/uL (3.6-5.1); RED CELL DISTRIBUTION WIDTH 11.7 % (11.7-14.4)
[2019-05-31 04:03] LABS: ANION GAP 12.6 mmol/L (8-16); BUN/CREATININE RATIO 29 (6-25); CALCIUM 9.2 mg/dL (8.4-10.2); CARBON DIOXIDE 24 mmol/L (22-29); CHLORIDE 106 mmol/L (98-107); CREATININE, SERUM 0.69 mg/dL (0.57-1.11); EST GLOMERULAR FILTRATION RATE > 60 ML/MIN (60-); GLUCOSE 125 mg/dL (74-118); POTASSIUM 3.6 mmol/L (3.5-5.1); SODIUM 139 mmol/L (136-145)
[2019-05-31 04:06] LABS: BLOOD UREA NITROGEN 20 mg/dL (7-26)
[2019-05-31] MEDS: MEROPENEM 500MG/ NS 50ML 50 ML IV SCH ×2 (05:19→16:55)
[2019-05-31] MEDS: HYDROCODONE/APAP 5MG-325MG TAB PO PRN (05:20)
--- NOTE | 2019-05-31 06:55 | NUR ---
latoya Camacho, [employer]EN[employer] WORK[employer] notified of ESBL in urine. no new orders at this time. Rounding and report given to AM nurse.
[2019-05-31] MEDS: INSULIN REGULAR, HUMAN 100 UNIT/1 ML 3ML VIAL SQ SCH ×3 (07:30→17:19)
[2019-05-31] MEDS: FAMOTIDINE 20 MG TAB PO SCH ×2 (07:57→17:00)
[2019-05-31 08:00] VITALS: BP 125/67
[2019-05-31] MEDS ORDERED: TRICOR48 MG PO (08:08)
[2019-05-31] MEDS ORDERED: NORVASC10 MG PO (08:08)
[2019-05-31] MEDS ORDERED: GABAPENTIN100 MG PO (08:08)
[2019-05-31] MEDS ORDERED: TYLENOL WITH C1 EACH PO (08:13)
[2019-05-31] MEDS: GABAPENTIN 100 MG CAP PO SCH ×2 (08:26→17:00)
[2019-05-31] MEDS: DOCUSATE SODIUM 100 MG CAP PO SCH ×2 (08:26→16:55)
[2019-05-31] MEDS ORDERED: LACTULOSE SYRUP 20 GM/30 ML UDC PO ONE (08:45)
[2019-05-31 09:00] VITALS: BP 125/67
[2019-05-31] MEDS: AMLODIPINE BESYLATE 10 MG TAB PO SCH (09:00)
[2019-05-31] MEDS ORDERED: FENOFIBRATE 48 MG TAB PO SCH (09:00)
[2019-05-31 12:34] VITALS: BP 126/71
--- NOTE | 2019-05-31 12:54 | NUR ---
went to see patient regarding set up of outpatient iv antibiotics. [facility] is in network with patient's insurance. Patient signed choice for [facility]. Notified [facility] about new referral @ [phone]. Clinicals faxed to [phone]. Ivy with [facility] states she is coming out for bedside teach. Patient to get IV merrem q8h x14 days for ESBL of the urine. PICC RN here to insert picc. Planned DC this evening after bedside teach, RN aware.
--- NOTE | 2019-05-31 14:26 | Diagnostic Imaging Report ---
Exam: Chest one view Clinical history: Line placement Findings: A right arm PICC is noted with its tip overlying the cavoatrial junction. There is no evidence of pulmonary consolidation, pleural effusion, or pneumothorax. The cardiac size is within normal limits. The regional osseous structures are unremarkable. Signed by: Dr. Louis Parkinson MD on 05/31/2019 2:22 PM
--- NOTE | 2019-05-31 19:00 | NUR ---
patient discharged home verbalized understanding of d/c instructions.
--- NOTE | 2019-06-01 15:23 | Discharge Summary ---
ADMISSION DIAGNOSES: 1. Recurrent left pyelonephritis. 2. Cystitis with sepsis and failed outpatient treatment. 3. Hypertension. 4. Hyperlipidemia. 5. Type 2 diabetes. DISCHARGE DIAGNOSES: 1. Recurrent left pyelonephritis. 2. Cystitis with sepsis and failed outpatient treatment. 3. Hypertension. 4. Hyperlipidemia. 5. Type 2 diabetes. 6. Extended spectrum beta-lactamase of the urine present on admission. HISTORY: Type 2 diabetes, hypertension, hypercholesterolemia. SURGICAL HISTORY: None. FAMILY HISTORY: Noncontributory. SOCIAL HISTORY: Noncontributory. HOSPITAL COURSE: A 53-year-old female with past medical history of left hydronephrosis, pyelonephritis, status post cystoscopy with left ureteral stent placement on 02/22/2019, admits with complaints of right lower quadrant abdominal pain, which is intermittent and sharp that radiates to her back. The pain began last night. She denies hematuria, dysuria, and fever. She was treated recently with 10 days of an unknown antibiotic and she finished the last dose on the prior weekend. CT of the abdomen and pelvis was done, which showed findings suggestive of acute/recurrent left pyelonephritis. There is also findings suggestive of urinary bladder cystitis. Urinalysis was sent and culture came back positive for ESBL of the urine. The patient had a PICC line placed and Home Health was consulted to arrange for total of 14 days IV Merrem. The patient and daughter understand discharge instructions and agreed to plan. Vital signs stable. Patient afebrile. Dictated by Eunice Marie NP MD ERROL Randhawa/LUIGIL /[id number]
== END 2019-05-31 19:00 | disposition home health service (06) | DRG 872 ==
LOC: ER 00:47 → ERHOLD 03:01 → IMCU 04:55 → OBSVTOIN 06:05
PROVIDERS: ADMIT Internal Medicine; ATTEND Internal Medicine
PROC: 02HV33Z Insertion of Infusion Device into Superior Vena Cava, Percutaneous Approach (ICD-10-PCS; principal; 2019-05-31)
DX: A41.9 Sepsis, unspecified organism (principal); N12 Tubulo-interstitial nephritis, not specified as acute or chronic; Z16.12 Extended spectrum beta lactamase (ESBL) resistance; I10 Essential (primary) hypertension; E11.9 Type 2 diabetes mellitus without complications; E78.5 Hyperlipidemia, unspecified; N30.90 Cystitis, unspecified without hematuria; B96.20 Unspecified Escherichia coli [E. coli] as the cause of diseases classified elsewhere; E78.00 Pure hypercholesterolemia, unspecified
CPT/HCPCS: 36415; 36569; 71045; 74176; 80048; 80061; 81001; 82948; 83036; 85025; 87086; 87186; 99284; J1817; J1885; J2185; J2270; J2405; J7030; J7050

== ENCOUNTER 2019-06-14 06:59 | Emergency (ER) | payer BC ==
[~2019-06-14] VITALS: Ht 154.9 cm; Wt 69.9 kg
[~2019-06-14 06:59] MED LIST changes: +GABAPENTIN100 MG PO; +NORVASC10 MG PO; +TRICOR48 MG PO; +TRULICITY SC; +TYLENOL WITH C1 EACH PO
[2019-06-14] MEDS ORDERED: ONDANSETRON HCL INJ 2MG/ML 2ML 2 MG/ML VIAL IV STA (07:29)
[2019-06-14] MEDS ORDERED: KETOROLAC TROMETHAMINE 30 MG/ML VIAL IV STA (07:29)
[2019-06-14] MEDS ORDERED: DICYCLOMINE HCL 20 MG/2 ML VIAL IM ONE (07:30)
[2019-06-14] MEDS ORDERED: SODIUM CHLORIDE 0.9% 1000ML 1,000 ML IV ONE (07:30)
[2019-06-14 07:52] LABS: BASOPHILS # (AUTO) 0.1 (0.0-0.1); BASOPHILS % 0.7 % (0.0-1.0); EOSINOPHILS # (AUTO) 0.2 (0.0-0.4); EOSINOPHILS % 2.1 % (0.0-6.0); HEMATOCRIT 39.7 % (34.2-44.1); HEMOGLOBIN 13.6 g/dL (12.0-16.0); LYMPHOCYTES # (AUTO) 2.4 (1.0-3.2); LYMPHOCYTES % 28.3 % (18.0-39.1); MEAN CORPUSCULAR HEMOGLOBIN 29.4 pg (28-32); MEAN CORPUSCULAR HGB CONC 34.3 g/dL (31-35); MEAN CORPUSCULAR VOLUME 85.7 fL (81-99); MONOCYTES # (AUTO) 0.5 (0.2-0.8); MONOCYTES % 5.8 % (4.4-11.3); NEUTROPHILS # (AUTO) 5.3 (2.1-6.9); PLATELET COUNT 376 x10e3/uL (140-360); RED BLOOD COUNT 4.63 x10e6/uL (3.6-5.1); RED CELL DISTRIBUTION WIDTH 11.4 % (11.7-14.4)
[2019-06-14 07:53] LABS: BILIRUBIN,URINE NEGATIVE (NEGATIVE); CLARITY,URINE CLEAR (CLEAR); COLOR,URINE YELLOW (YELLOW); KETONES,URINE TRACE (NEGATIVE); LEUKOCYTE ESTERASE ,URINE NEGATIVE (NEGATIVE); NITRITE,URINE NEGATIVE (NEGATIVE); PROTEIN,URINE DIPSTICK NEGATIVE (NEGATIVE); URINE UROBILINOGEN 0.2 mg/dL (0.2 - 1)
[2019-06-14 08:26] LABS: ALANINE AMINOTRANSFERASE 48 IU/L (0-55); ALKALINE PHOSPHATASE 103 IU/L (40-150); ANION GAP 14.6 mmol/L (8-16); BLOOD UREA NITROGEN 18 mg/dL (7-26); BUN/CREATININE RATIO 26 (6-25); CALCIUM 10.5 mg/dL (8.4-10.2); CARBON DIOXIDE 26 mmol/L (22-29); CHLORIDE 101 mmol/L (98-107); CREATININE, SERUM 0.69 mg/dL (0.57-1.11); EST GLOMERULAR FILTRATION RATE > 60 ML/MIN (60-); GLUCOSE 149 mg/dL (74-118); POTASSIUM 3.6 mmol/L (3.5-5.1); SODIUM 138 mmol/L (136-145)
[2019-06-14 08:28] LABS: WBC,URINE (MAN) 0-5 /HPF (0-5)
[2019-06-14 08:29] LABS: BACTERIA,URINE RARE /HPF; EPITHELIAL CELLS,URINE FEW /LPF; RBC,URINE 0-5 /HPF (0-5)
--- NOTE | 2019-06-14 10:46 | Diagnostic Imaging Report ---
EXAM: CT Abdomen and Pelvis WITH intravenous contrast INDICATION: Abdominal pain COMPARISON: CT abdomen pelvis of 05/29/2019 TECHNIQUE: Abdomen and pelvis were scanned utilizing a multidetector helical scanner from the lung base to the pubic symphysis after administration of IV contrast. Coronal and sagittal reformations were obtained. Routine protocol was performed. Scan was performed during portal venous phase. IV CONTRAST: 100mL of Isovue 370 ORAL CONTRAST: Water RADIATION DOSE: Total DLP: 330.7 mGy*cm Dose modulation, iterative reconstruction, and/or weight based adjustment of the mA/kV was utilized to reduce the radiation dose to as low as reasonably achievable. FINDINGS: LOWER THORAX: Normal. HEPATOBILIARY: Diffuse hepatic steatosis. No focal liver lesion. No biliary ductal dilation. Unremarkable gallbladder. SPLEEN: No splenomegaly. PANCREAS: No focal masses or ductal dilatation. ADRENALS: No adrenal nodules. KIDNEYS/URETERS: No renal calculi or hydronephrosis. Scattered areas of decreased cortical enhancement in the left kidney. PELVIC ORGANS/BLADDER: Status post hysterectomy. PERITONEUM / RETROPERITONEUM: No free air or fluid. LYMPH NODES: No lymphadenopathy. VESSELS: Unremarkable. GI TRACT: No abnormal bowel wall thickening. No bowel obstruction. Normal appendix. BONES AND SOFT TISSUES: No acute osseous injury. No suspicious lytic or blastic lesions. IMPRESSION: Normal appendix. Diffuse hepatic steatosis. Scattered areas of decreased cortical enhancement of the left kidney can be seen in the setting of upper urinary tract infection or less likely early infarct. Signed by: Donna Ames MD on 06/14/2019 10:43 AM
[2019-06-14] MEDS ORDERED: SODIUM CHLORIDE 0.9% 50ML 50 ML ONE (15:53)
[2019-06-14] MEDS ORDERED: IOPAMIDOL 370 MG/ML 200 ML INFUS..BTL INJ ONE (15:53)
== END 2019-06-14 11:52 | disposition home or self-care (01) ==
LOC: ER 06:59
DX: R10.31 Right lower quadrant pain (principal); R11.0 Nausea
CPT/HCPCS: 36415; 74177; 80053; 81001; 85025; 87086; 99283; J0500; J1885; J2405; J7030; Q9967

== ENCOUNTER → 2019-10-06 | Day surgery (SDC) | payer BC ==
[2019-10-04 09:12] LABS: BASOPHILS # (AUTO) 0.1 (0.0-0.1); BASOPHILS % 0.7 % (0.0-1.0); EOSINOPHILS # (AUTO) 0.3 (0.0-0.4); EOSINOPHILS % 3.6 % (0.0-6.0); HEMATOCRIT 34.1 % (34.2-44.1); HEMOGLOBIN 11.4 g/dL (12.0-16.0); LYMPHOCYTES # (AUTO) 2.2 (1.0-3.2); LYMPHOCYTES % 30.8 % (18.0-39.1); MEAN CORPUSCULAR HEMOGLOBIN 29.4 pg (28-32); MEAN CORPUSCULAR HGB CONC 33.4 g/dL (31-35); MEAN CORPUSCULAR VOLUME 87.9 fL (81-99); MONOCYTES # (AUTO) 0.5 (0.2-0.8); MONOCYTES % 6.9 % (4.4-11.3); NEUTROPHILS # (AUTO) 4.2 (2.1-6.9); NEUTROPHILS % 57.7 % (38.7-80.0); PLATELET COUNT 372 x10e3/uL (140-360); RED BLOOD COUNT 3.88 x10e6/uL (3.6-5.1); RED CELL DISTRIBUTION WIDTH 11.5 % (11.7-14.4)
[2019-10-04 09:35] LABS: ANION GAP 13.9 mmol/L (8-16); BLOOD UREA NITROGEN 18 mg/dL (7-26); BUN/CREATININE RATIO 25 (6-25); CARBON DIOXIDE 25 mmol/L (22-29); CHLORIDE 106 mmol/L (98-107); CREATININE, SERUM 0.72 mg/dL (0.57-1.11); EST GLOMERULAR FILTRATION RATE > 60 ML/MIN (60-); GLUCOSE 319 mg/dL (74-118); POTASSIUM 3.9 mmol/L (3.5-5.1); SODIUM 141 mmol/L (136-145)
--- NOTE | 2019-10-04 09:37 | Diagnostic Imaging Report ---
Chest, PA and lateral. History: Preoperative evaluation for urologic procedure. Bladder calculus Comparison: 02/15/2019. Discussion: The cardiomediastinal silhouette and pulmonary vasculature are within normal limits. The lungs are clear without evidence of consolidation or effusion. There are no acute osseous abnormalities. IMPRESSION: No acute cardiopulmonary abnormality. Signed by: Mario Mukherjee MD on 10/04/2019 9:35 AM
[~2019-10-06] MED LIST changes: +ACETAMINOPHEN/CODEINE 300MG - 30MG TAB ONE; +BACTRIM DS TAB1 EACH PO; +CEFTRIAXONE SOD 1 GM/NS 50 ML 50 ML IV ONE; +DEXAMETHASONE SOD PHOS INJ 4 MG/ML VIAL ONE; +FENTANYL CITRATE/PF 100MCG/2 ML INJ ONE; +LIDOCAINE HCL 2% LOCAL INJ 5 ML SDV VIAL INJ ONE; +ONDANSETRON HCL INJ 2MG/ML 2ML 2 MG/ML VIAL ONE; +PROPOFOL IV EMULSION 10 MG/ML 20 ML VIAL ONE; +SEVOFLURANE INHAL SOLN 250 ML PEN BTL ONE
[2019-10-06 13:15] VITALS: BP 130/71
--- NOTE | 2019-10-20 17:30 | Operative Report ---
DATE OF PROCEDURE: 10/06/2019 SURGEON: Juvenal Buck MD PREOPERATIVE DIAGNOSIS: Bladder stone. POSTOPERATIVE DIAGNOSIS: Bladder foreign body, likely not stone. OPERATIVE PROCEDURES PERFORMED: 1. Cystoscopy. 2. Cystolitholapaxy. ANESTHESIA: General anesthesia. ESTIMATED BLOOD LOSS: Minimal. INDICATIONS: Ms. Lauren Razo is a 54-year-old with a history of recurrent urinary tract infection, who was found by an office cystoscopy to have a foreign body, presumably a stone in her bladder. She now presents for definitive surgical management of this problem. PROCEDURE IN DETAIL: The patient was brought into the operating room and placed in supine position. After administration of general anesthesia, was placed in dorsal lithotomy position and prepped and draped in the usual sterile fashion. Cystourethroscopy was performed using 22-British cystoscope. The anterior and posterior urethra were noted to be normal. The bladder was entered without difficulty. There was a large yellowish smooth foreign body seen in the bladder, which was felt to be consistent with a stone. There was moderate erythema and edema noted of the surrounding bladder mucosa. The ureteral orifices were normal in anatomic position and produced largely clear efflux. A 1000-mm fiber was used to break up the stone and at this time, it was realized the foreign body was of a tissue consistency and not a stone consistency. However, the laser was used to break it out into a smaller pieces, which were then individually grasped and removed from the bladder and sent to pathology for microscopic analysis. At the conclusion of the procedure, there was no residual foreign body or stone left in the bladder. There was no significant mucosal lesions identified. The bladder was then drained in its entirety and the cystoscope and sheath were removed. The patient was returned to supine position and anesthesia was reversed. She was transferred to a bed and taken to the postanesthesia care unit in good condition. Of note, the needle and instrument count were correct at the conclusion of the case. Juvenal Buck MD HLW/MODL /[id number]
== END | disposition home or self-care (01) ==
LOC: OR 08:52
PROVIDERS: ATTEND Urology
DX: T19.1XXA Foreign body in bladder, initial encounter (principal); E11.9 Type 2 diabetes mellitus without complications; K21.9 Gastro-esophageal reflux disease without esophagitis; X58.XXXA Exposure to other specified factors, initial encounter; Z01.810 Encounter for preprocedural cardiovascular examination; Z01.812 Encounter for preprocedural laboratory examination; Z01.818 Encounter for other preprocedural examination; Z79.4 Long term (current) use of insulin; Z79.84 Long term (current) use of oral hypoglycemic drugs
CPT/HCPCS: 36415 ×2; 52318; 71046; 80048; 82948; 85025; 88304; 93005; J0696; J1100; J2001; J2405; J2704; J3010

== ENCOUNTER 2021-11-12 00:25 | Inpatient (IN) | payer BC ==
[~2021-11-12] VITALS: Ht 152.4 cm; Wt 66.2 kg
[~2021-11-12 00:25] MED LIST changes: -ACETAMINOPHEN/CODEINE 300MG - 30MG TAB ONE; -CEFTRIAXONE SOD 1 GM/NS 50 ML 50 ML IV ONE; -DEXAMETHASONE SOD PHOS INJ 4 MG/ML VIAL ONE; -FENTANYL CITRATE/PF 100MCG/2 ML INJ ONE; -LIDOCAINE HCL 2% LOCAL INJ 5 ML SDV VIAL INJ ONE; -ONDANSETRON HCL INJ 2MG/ML 2ML 2 MG/ML VIAL ONE; -PROPOFOL IV EMULSION 10 MG/ML 20 ML VIAL ONE; -SEVOFLURANE INHAL SOLN 250 ML PEN BTL ONE
[2021-11-12] MEDS ORDERED: KETOROLAC TROMETHAMINE 30 MG/ML VIAL IV STA (00:48)
[2021-11-12] MEDS ORDERED: SODIUM CHLORIDE 0.9% 1000ML 1,000 ML IV SCH (01:00)
[2021-11-12] MEDS ORDERED: CEFTRIAXONE 1 GM in SODIUM CHLORIDE 0.9% 50ML 50 ML IV ONE (01:00)
[2021-11-12 01:14] LABS: BASOPHILS % 0.4 % (0.0-1.0); EOSINOPHILS # (AUTO) 0.2 (0.0-0.4); EOSINOPHILS % 2.2 % (0.0-6.0); HEMATOCRIT 37.6 % (34.2-44.1); HEMOGLOBIN 12.4 g/dL (12.0-16.0); LYMPHOCYTES % 19.7 % (18.0-39.1); MEAN CORPUSCULAR VOLUME 87.9 fL (81-99); MONOCYTES # (AUTO) 0.7 (0.2-0.8); MONOCYTES % 6.7 % (4.4-11.3); NEUTROPHILS # (AUTO) 7.3 (2.1-6.9); NEUTROPHILS % 70.6 % (38.7-80.0); PLATELET COUNT 389 x10e3/uL (140-360); RED BLOOD COUNT 4.28 x10e6/uL (3.6-5.1); RED CELL DISTRIBUTION WIDTH 11.9 % (11.7-14.4)
[2021-11-12] MEDS ORDERED: SODIUM CHLORIDE 0.9% 1000ML 1,000 ML IV ONE (01:15)
[2021-11-12 01:17] LABS: CLARITY,URINE SL CLOUDY (CLEAR); COLOR,URINE YELLOW (YELLOW); KETONES,URINE >=160 (NEGATIVE); LEUKOCYTE ESTERASE ,URINE TRACE (NEGATIVE); NITRITE,URINE POSITIVE (NEGATIVE); PROTEIN,URINE DIPSTICK NEGATIVE (NEGATIVE); URINE UROBILINOGEN 0.2 mg/dL (0.2 - 1)
[2021-11-12 01:22] LABS: BACTERIA,URINE MODERATE /HPF; EPITHELIAL CELLS,URINE FEW /LPF; RBC,URINE 0-5 /HPF (0-5)
[2021-11-12 01:28] LABS: ALBUMIN 3.9 g/dL (3.5-5.0); ALBUMIN/GLOBULIN RATIO 1.1 (0.8-2.0); CALCIUM 9.2 mg/dL (8.4-10.2); CREATININE, SERUM 0.82 mg/dL (0.57-1.11)
[2021-11-12] MEDS ORDERED: SODIUM CHLORIDE 0.9% 1000ML 1,000 ML ONE (01:32)
[2021-11-12] MEDS ORDERED: IOPAMIDOL 370 MG/ML 200 ML INFUS..BTL INJ ONE (01:47)
[2021-11-12] MEDS ORDERED: SODIUM CHLORIDE 0.9% 50ML 50 ML ONE (01:47)
[2021-11-12] MEDS ORDERED: ACETAMINOPHEN 1000 MG/100 ML IV STA (02:57)
[2021-11-12 04:00] VITALS: BP 154/90
[2021-11-12] MEDS: SODIUM CHLORIDE 0.9% 1000ML 1,000 ML IV SCH ×3 (05:34→17:24)
[2021-11-12 07:46] VITALS: BP 136/70
[2021-11-12 08:15] VITALS: BP 136/70
[2021-11-12] MEDS ORDERED: DEXTROSE 50% SYRINGE 50 ML IV PRN (08:30)
[2021-11-12 09:00] LABS: CHOL/HDL RATIO 4.7 (3.0-3.6)
[2021-11-12] MEDS: FAMOTIDINE 20 MG/2 ML VIAL IV SCH ×2 (09:31→16:17)
[2021-11-12] MEDS: CEFTRIAXONE 1 GM in SODIUM CHLORIDE 0.9% 50ML 50 ML IV SCH (09:31)
[2021-11-12 11:26] VITALS: BP 119/66
[2021-11-12] MEDS: INSULIN REGULAR, HUMAN 100 UNIT/1 ML SQ SCH ×3 (11:30→20:23)
[2021-11-12 16:27] VITALS: BP 110/56
[2021-11-12] MEDS: ONDANSETRON HCL INJ 2MG/ML 2ML 2 MG/ML VIAL IV PRN (18:52)
[2021-11-12] MEDS: Morphine 4mg Syringe 4 MG/ML INJ IV PRN (18:52)
[2021-11-12 20:00] VITALS: BP 114/55
[2021-11-12] MEDS: BISACODYL 10 MG SUPP PR SCH (20:32)
[2021-11-13] VITALS (14 sets, daily range): BP systolic 102–148; BP diastolic 56–89
[2021-11-13] MEDS: SODIUM CHLORIDE 0.9% 1000ML 1,000 ML IV SCH ×3 (02:12→18:12)
[2021-11-13] MEDS: Morphine 4mg Syringe 4 MG/ML INJ IV PRN ×3 (02:13→14:46)
[2021-11-13 05:29] LABS: BASOPHILS # (AUTO) 0.1 (0.0-0.1); BASOPHILS % 0.7 % (0.0-1.0); EOSINOPHILS # (AUTO) 0.4 (0.0-0.4); EOSINOPHILS % 4.3 % (0.0-6.0); HEMATOCRIT 31.4 % (34.2-44.1); LYMPHOCYTES # (AUTO) 2.8 (1.0-3.2); MEAN CORPUSCULAR HEMOGLOBIN 28.7 pg (28-32); MEAN CORPUSCULAR HGB CONC 31.8 g/dL (31-35); MEAN CORPUSCULAR VOLUME 90.2 fL (81-99); MONOCYTES # (AUTO) 0.8 (0.2-0.8); MONOCYTES % 9.6 % (4.4-11.3); NEUTROPHILS # (AUTO) 4.6 (2.1-6.9); NEUTROPHILS % 53.2 % (38.7-80.0); PLATELET COUNT 348 x10e3/uL (140-360); RED BLOOD COUNT 3.48 x10e6/uL (3.6-5.1); RED CELL DISTRIBUTION WIDTH 11.9 % (11.7-14.4)
[2021-11-13 06:08] LABS: ANION GAP 15.8 mmol/L (8-16); CALCIUM 8.2 mg/dL (8.4-10.2); CREATININE, SERUM 0.72 mg/dL (0.57-1.11); POTASSIUM 3.8 mmol/L (3.5-5.1)
[2021-11-13] MEDS: ONDANSETRON HCL INJ 2MG/ML 2ML 2 MG/ML VIAL IV PRN (06:54)
[2021-11-13] MEDS: INSULIN REGULAR, HUMAN 100 UNIT/1 ML SQ SCH ×4 (07:30→20:39)
[2021-11-13] MEDS: BISACODYL 10 MG SUPP PR SCH (08:00)
[2021-11-13] MEDS: FAMOTIDINE 20 MG/2 ML VIAL IV SCH ×2 (08:15→18:05)
[2021-11-13] MEDS: CEFTRIAXONE 1 GM in SODIUM CHLORIDE 0.9% 50ML 50 ML IV SCH (08:15)
[2021-11-13 12:54] LABS: % IRON SATURATION 15 % (15-50); IRON 33 ug/dL (50-170); TOTAL IRON BINDING CAPACITY 214 ug/dL (261-478); TRANSFERRIN 153 mg/dL (180-382)
[2021-11-13] MEDS ORDERED: MIDAZOLAM HCL 2 MG/2 ML VIAL ONE (13:19)
[2021-11-13] MEDS ORDERED: LIDOCAINE HCL 2% LOCAL INJ 5 ML SDV VIAL INJ ONE (13:20)
[2021-11-13] MEDS ORDERED: PROPOFOL IV EMULSION 10 MG/ML 20 ML VIAL ONE (13:20)
[2021-11-13] MEDS ORDERED: CITRATE OF MAGNESIA 300ML BOTTLE NG ONE (23:45)
[2021-11-14] VITALS (10 sets, daily range): BP systolic 125–142; BP diastolic 59–71
[2021-11-14] MEDS: METOCLOPRAMIDE HCL 10 MG/2ML VIAL IV SCH ×5 (00:36→23:59)
[2021-11-14] MEDS ORDERED: CITRATE OF MAGNESIA 300ML BOTTLE NG ONE (00:45)
[2021-11-14] MEDS: CEPACOL SORE THROAT LOZENGES PO PRN ×3 (01:19→23:07)
[2021-11-14] MEDS: SODIUM CHLORIDE 0.9% 1000ML 1,000 ML IV SCH ×3 (03:00→20:32)
[2021-11-14 06:52] LABS: PHOSPHORUS 2.6 MG/DL (2.3-4.7); POTASSIUM 4.3 mmol/L (3.5-5.1)
[2021-11-14] MEDS: INSULIN REGULAR, HUMAN 100 UNIT/1 ML SQ SCH ×4 (07:30→19:51)
[2021-11-14] MEDS: FAMOTIDINE 20 MG/2 ML VIAL IV SCH ×2 (08:51→17:08)
[2021-11-14] MEDS: CEFTRIAXONE 1 GM in SODIUM CHLORIDE 0.9% 50ML 50 ML IV SCH (08:51)
[2021-11-14 09:04] LABS: BASOPHILS # (AUTO) 0.1 (0.0-0.1); BASOPHILS % 0.5 % (0.0-1.0); EOSINOPHILS # (AUTO) 0.1 (0.0-0.4); EOSINOPHILS % 0.8 % (0.0-6.0); HEMATOCRIT 36.3 % (34.2-44.1); HEMOGLOBIN 11.5 g/dL (12.0-16.0); LYMPHOCYTES # (AUTO) 2.1 (1.0-3.2); LYMPHOCYTES % 16.5 % (18.0-39.1); MEAN CORPUSCULAR HEMOGLOBIN 29.3 pg (28-32); MEAN CORPUSCULAR HGB CONC 31.7 g/dL (31-35); MEAN CORPUSCULAR VOLUME 92.4 fL (81-99); MONOCYTES # (AUTO) 0.9 (0.2-0.8); MONOCYTES % 7.2 % (4.4-11.3); NEUTROPHILS # (AUTO) 9.4 (2.1-6.9); NEUTROPHILS % 74.6 % (38.7-80.0); PLATELET COUNT 429 x10e3/uL (140-360); RED BLOOD COUNT 3.93 x10e6/uL (3.6-5.1); RED CELL DISTRIBUTION WIDTH 11.9 % (11.7-14.4)
[2021-11-14] MEDS: Pantoprazole IV 40 MG in SODIUM CHLORIDE 0.9% 50ML 50 ML IV SCH ×3 (09:15→20:32)
[2021-11-14 09:44] LABS: INR 1.15; PROTHROMBIN TIME 15.7 seconds (11.9-14.5)
[2021-11-14] MEDS ORDERED: PHYTONADIONE 10 MG/ML AMP IV ONE (10:15)
[2021-11-14] MEDS ORDERED: PHYTONADIONE 10MG/ML 20 MG in SODIUM CHLORIDE 0.9% 50ML 50 ML IV ONE (11:00)
[2021-11-14] MEDS ORDERED: CITRATE OF MAGNESIA 300ML BOTTLE PO ONE (13:45)
[2021-11-14] MEDS ORDERED: MAGNESIUM HYDROXIDE 30 ML UDC PO ONE (14:00)
[2021-11-14] MEDS ORDERED: MAGNESIUM HYDROXIDE 30 ML UDC NG ONE (23:00)
[2021-11-15] MEDS: Pantoprazole IV 40 MG in SODIUM CHLORIDE 0.9% 50ML 50 ML IV SCH ×5 (02:22→22:37)
[2021-11-15] MEDS ORDERED: BISACODYL 5 MG TAB EC PO ONE ×2 (02:30→03:00)
[2021-11-15 04:00] VITALS: BP 141/68
[2021-11-15] MEDS: SODIUM CHLORIDE 0.9% 1000ML 1,000 ML IV SCH ×3 (04:41→23:53)
[2021-11-15] MEDS: METOCLOPRAMIDE HCL 10 MG/2ML VIAL IV SCH ×4 (06:30→23:38)
[2021-11-15] MEDS: INSULIN REGULAR, HUMAN 100 UNIT/1 ML SQ SCH ×4 (07:30→21:00)
[2021-11-15 08:27] VITALS: BP 129/57
[2021-11-15 08:39] LABS: MAGNESIUM 2.5 MG/DL (1.3-2.1); PHOSPHORUS 1.9 MG/DL (2.3-4.7); POTASSIUM 3.8 mmol/L (3.5-5.1)
[2021-11-15] MEDS: IRON SUCROSE 100 MG in SODIUM CHLORIDE 0.9% 100 ML 100 ML IV SCH (09:00)
[2021-11-15] MEDS: FAMOTIDINE 20 MG/2 ML VIAL IV SCH ×2 (09:33→16:54)
[2021-11-15] MEDS: CEFTRIAXONE 1 GM in SODIUM CHLORIDE 0.9% 50ML 50 ML IV SCH (09:37)
[2021-11-15 09:42] VITALS: BP 129/57
[2021-11-15 12:59] VITALS: BP 132/69
[2021-11-15] MEDS ORDERED: DIATRIZOATE MEGL/DIATRIZOA SOD 120 ML BTL PO ONE (15:57)
[2021-11-15 17:20] VITALS: BP 145/68
[2021-11-15 20:00] VITALS: BP 131/65
[2021-11-16] VITALS (9 sets, daily range): BP systolic 99–143; BP diastolic 50–64
[2021-11-16] MEDS: Pantoprazole IV 40 MG in SODIUM CHLORIDE 0.9% 50ML 50 ML IV SCH ×2 (04:02→08:14)
[2021-11-16] MEDS: METOCLOPRAMIDE HCL 10 MG/2ML VIAL IV SCH (06:23)
[2021-11-16] MEDS: INSULIN REGULAR, HUMAN 100 UNIT/1 ML SQ SCH ×4 (07:30→20:43)
[2021-11-16] MEDS: SODIUM CHLORIDE 0.9% 1000ML 1,000 ML IV SCH ×3 (08:14→20:43)
[2021-11-16] MEDS: IRON SUCROSE 100 MG in SODIUM CHLORIDE 0.9% 100 ML 100 ML IV SCH (09:00)
[2021-11-16] MEDS: CEFTRIAXONE 1 GM in SODIUM CHLORIDE 0.9% 50ML 50 ML IV SCH (09:00)
[2021-11-16] MEDS: FAMOTIDINE 20 MG/2 ML VIAL IV SCH (09:37)
[2021-11-16] MEDS ORDERED: KETOROLAC TROMETHAMINE 30 MG/ML VIAL ONE (12:16)
[2021-11-16] MEDS ORDERED: GLYCOPYRROLATE INJ 0.2 MG/ML VIAL ONE (12:16)
[2021-11-16] MEDS ORDERED: SEVOFLURANE INHAL SOLN 250 ML PEN BTL ONE (12:16)
[2021-11-16] MEDS ORDERED: POVIDONE IODINE 0.05% 0.05 % ML PO ONE (12:16)
[2021-11-16] MEDS ORDERED: NEOSTIGMINE 1 MG/ML 10ML VIAL ONE (12:16)
[2021-11-16] MEDS ORDERED: ROCURONIUM BROMIDE 10 MG/ML 5ML VIAL IV ONE (12:16)
[2021-11-16] MEDS ORDERED: LIDOCAINE HCL 2% LOCAL INJ 5 ML SDV VIAL INJ ONE (12:16)
[2021-11-16] MEDS ORDERED: SUCCINYLCHOLINE CHLORIDE 20 MG/ML 10ML VIAL ONE (12:16)
[2021-11-16] MEDS ORDERED: ONDANSETRON HCL INJ 2MG/ML 2ML 2 MG/ML VIAL ONE (12:16)
[2021-11-16] MEDS ORDERED: DEXAMETHASONE SOD PHOS INJ 4 MG/ML SDV ONE (12:16)
[2021-11-16] MEDS ORDERED: PROPOFOL IV EMULSION 10 MG/ML 20 ML VIAL ONE (12:16)
[2021-11-16] MEDS ORDERED: ACETAMINOPHEN 1000 MG/100 ML 100 ML IV ONE (15:43)
[2021-11-16] MEDS ORDERED: ACETAMINOPHEN 1000 MG/100 ML IV PRN (16:00)
[2021-11-16] MEDS: SODIUM CHLORIDE 0.9% 250ML IRRIG IR SCH ×2 (16:00→20:43)
[2021-11-16] MEDS ORDERED: NALOXONE HCL INJ 0.4 MG/ML AMP IV PRN (16:00)
[2021-11-16] MEDS ORDERED: HYDROMORPHONE 0.2MG/ML-SOD CHL 30ML PCA SYRINGE IV PRN (16:00)
[2021-11-16] MEDS ORDERED: HYDROMORPHONE 0.2MG/ML-SOD CHL 30ML PCA SYRINGE IV ONE (16:19)
[2021-11-16] MEDS ORDERED: MIDAZOLAM HCL 2 MG/2 ML VIAL ONE (16:48)
[2021-11-16] MEDS ORDERED: FENTANYL CITRATE/PF 100MCG/2 ML INJ ONE (16:48)
[2021-11-16] MEDS ORDERED: SODIUM CHLORIDE 0.9% 250ML 250 ML ONE (17:40)
[2021-11-17] VITALS (7 sets, daily range): BP systolic 92–136; BP diastolic 46–61
[2021-11-17] MEDS: SODIUM CHLORIDE 0.9% 250ML IRRIG IR SCH ×7 (00:45→23:28)
[2021-11-17] MEDS: SODIUM CHLORIDE 0.9% 1000ML 1,000 ML IV SCH ×3 (04:30→20:13)
[2021-11-17 06:07] LABS: BASOPHILS % 0.2 % (0.0-1.0); HEMATOCRIT 32.2 % (34.2-44.1); HEMOGLOBIN 9.6 g/dL (12.0-16.0); LYMPHOCYTES # (AUTO) 2.1 (1.0-3.2); LYMPHOCYTES % 13.9 % (18.0-39.1); MEAN CORPUSCULAR HEMOGLOBIN 28.6 pg (28-32); MEAN CORPUSCULAR HGB CONC 29.8 g/dL (31-35); MEAN CORPUSCULAR VOLUME 95.8 fL (81-99); MONOCYTES # (AUTO) 1.7 (0.2-0.8); MONOCYTES % 11.6 % (4.4-11.3); NEUTROPHILS # (AUTO) 10.9 (2.1-6.9); NEUTROPHILS % 73.2 % (38.7-80.0); PLATELET COUNT 415 x10e3/uL (140-360); RED BLOOD COUNT 3.36 x10e6/uL (3.6-5.1); RED CELL DISTRIBUTION WIDTH 13.4 % (11.7-14.4)
[2021-11-17] MEDS: INSULIN REGULAR, HUMAN 100 UNIT/1 ML SQ SCH ×4 (07:30→20:28)
[2021-11-17 08:07] LABS: ANION GAP 11.7 mmol/L (8-16); CALCIUM 8.8 mg/dL (8.4-10.2); CREATININE, SERUM 2.06 mg/dL (0.57-1.11); POTASSIUM 3.7 mmol/L (3.5-5.1)
[2021-11-17] MEDS: IRON SUCROSE 100 MG in SODIUM CHLORIDE 0.9% 100 ML 100 ML IV SCH (08:41)
[2021-11-17] MEDS: CEFTRIAXONE 1 GM in SODIUM CHLORIDE 0.9% 50ML 50 ML IV SCH (08:41)
[2021-11-17] MEDS ORDERED: LACTATED RINGER'S 500 ML IV ONE (09:15)
[2021-11-17] MEDS ORDERED: HYDROMORPHONE 0.2MG/ML-SOD CHL 30ML PCA SYRINGE IV PRN (09:15)
[2021-11-17 16:33] LABS: ANION GAP 13.8 mmol/L (8-16); CREATININE, SERUM 1.71 mg/dL (0.57-1.11); POTASSIUM 3.8 mmol/L (3.5-5.1)
[2021-11-17] MEDS ORDERED: SODIUM BICARBONATE 8.4% 50 ML in SODIUM CHLORIDE 0.45% 1,000 ML IV SCH (19:30)
[2021-11-17] MEDS ORDERED: SODIUM CHLORIDE 0.45% 1,000 ML IV SCH (19:30)
[2021-11-17] MEDS: SODIUM BICARBONATE 8.4% SYRING 50 ML in SODIUM CHLORIDE 0.45% 1,000 ML IV SCH (20:12)
[2021-11-18] VITALS (7 sets, daily range): BP systolic 124–159; BP diastolic 60–72
[2021-11-18] MEDS: HYDROMORPHONE 1MG/1ML INJ IV PRN ×3 (01:09→09:53)
[2021-11-18] MEDS: SODIUM BICARBONATE 8.4% SYRING 50 ML in SODIUM CHLORIDE 0.45% 1,000 ML IV SCH ×3 (04:24→21:12)
[2021-11-18] MEDS: SODIUM CHLORIDE 0.9% 1000ML 1,000 ML IV SCH ×3 (04:30→20:51)
[2021-11-18] MEDS: SODIUM CHLORIDE 0.9% 250ML IRRIG IR SCH ×5 (04:42→20:51)
[2021-11-18 06:13] LABS: CALCIUM 8.8 mg/dL (8.4-10.2); CREATININE, SERUM 1.24 mg/dL (0.57-1.11)
[2021-11-18 06:32] LABS: ANION GAP 16.4 mmol/L (8-16)
[2021-11-18 06:44] LABS: POTASSIUM 2.4 mmol/L (3.5-5.1)
[2021-11-18] MEDS: INSULIN REGULAR, HUMAN 100 UNIT/1 ML SQ SCH ×4 (07:30→21:00)
[2021-11-18] MEDS ORDERED: POTASSIUM CHL 40 MEQ in SODIUM CHLORIDE 0.9% 250ML 230 ML IV ONE (07:45)
[2021-11-18] MEDS: POTASSIUM CHLORIDE 20MEQ/100ML 100 ML IV SCH ×2 (08:48→10:42)
[2021-11-18 11:08] LABS: BASOPHILS # (AUTO) 0.1 (0.0-0.1); BASOPHILS % 0.5 % (0.0-1.0); EOSINOPHILS # (AUTO) 0.1 (0.0-0.4); EOSINOPHILS % 0.7 % (0.0-6.0); HEMATOCRIT 31.8 % (34.2-44.1); HEMOGLOBIN 9.8 g/dL (12.0-16.0); LYMPHOCYTES # (AUTO) 1.3 (1.0-3.2); LYMPHOCYTES % 12.4 % (18.0-39.1); MEAN CORPUSCULAR HEMOGLOBIN 29.3 pg (28-32); MEAN CORPUSCULAR HGB CONC 30.8 g/dL (31-35); MEAN CORPUSCULAR VOLUME 94.9 fL (81-99); MONOCYTES # (AUTO) 0.9 (0.2-0.8); MONOCYTES % 8.3 % (4.4-11.3); NEUTROPHILS # (AUTO) 8.1 (2.1-6.9); NEUTROPHILS % 77.7 % (38.7-80.0); PLATELET COUNT 346 x10e3/uL (140-360); RED BLOOD COUNT 3.35 x10e6/uL (3.6-5.1); RED CELL DISTRIBUTION WIDTH 14.1 % (11.7-14.4)
[2021-11-18] MEDS: ONDANSETRON HCL INJ 2MG/ML 2ML 2 MG/ML VIAL IV PRN (14:00)
[2021-11-18] MEDS ORDERED: POTASSIUM CHLORIDE 20MEQ/100ML 100 ML IV ONE ×2 (16:00→18:00)
[2021-11-18] MEDS: CEFTRIAXONE 1 GM in SODIUM CHLORIDE 0.9% 50ML 50 ML IV SCH (16:02)
[2021-11-18] MEDS: IRON SUCROSE 100 MG in SODIUM CHLORIDE 0.9% 100 ML 100 ML IV SCH (16:09)
[2021-11-18] MEDS ORDERED: SODIUM BICARBONATE 8.4% SYRING 0 ML ONE (20:13)
[2021-11-19] VITALS (8 sets, daily range): BP systolic 133–148; BP diastolic 62–80
[2021-11-19] MEDS: SODIUM CHLORIDE 0.9% 250ML IRRIG IR SCH ×4 (04:29→12:05)
[2021-11-19] MEDS: SODIUM CHLORIDE 0.9% 1000ML 1,000 ML IV SCH (05:11)
[2021-11-19] MEDS: SODIUM BICARBONATE 8.4% SYRING 50 ML in SODIUM CHLORIDE 0.45% 1,000 ML IV SCH (05:11)
[2021-11-19] MEDS: INSULIN REGULAR, HUMAN 100 UNIT/1 ML SQ SCH ×4 (07:30→22:04)
[2021-11-19 08:03] LABS: BASOPHILS # (AUTO) 0.1 (0.0-0.1); BASOPHILS % 0.5 % (0.0-1.0); EOSINOPHILS # (AUTO) 0.1 (0.0-0.4); HEMATOCRIT 37.5 % (34.2-44.1); HEMOGLOBIN 11.4 g/dL (12.0-16.0); LYMPHOCYTES # (AUTO) 1.7 (1.0-3.2); LYMPHOCYTES % 14.9 % (18.0-39.1); MEAN CORPUSCULAR HEMOGLOBIN 29.3 pg (28-32); MEAN CORPUSCULAR HGB CONC 30.4 g/dL (31-35); MEAN CORPUSCULAR VOLUME 96.4 fL (81-99); MONOCYTES % 8.7 % (4.4-11.3); NEUTROPHILS # (AUTO) 8.6 (2.1-6.9); NEUTROPHILS % 74.3 % (38.7-80.0); PLATELET COUNT 322 x10e3/uL (140-360); RED BLOOD COUNT 3.89 x10e6/uL (3.6-5.1); RED CELL DISTRIBUTION WIDTH 14.1 % (11.7-14.4)
[2021-11-19 08:06] LABS: ANION GAP 17.1 mmol/L (8-16); CALCIUM 9.4 mg/dL (8.4-10.2); CREATININE, SERUM 1.05 mg/dL (0.57-1.11); POTASSIUM 3.1 mmol/L (3.5-5.1)
[2021-11-19] MEDS ORDERED: POTASSIUM CHLORIDE 20MEQ/100ML 100 ML IV ONE (09:00)
[2021-11-19] MEDS: SODIUM BICARBONATE 8.4% SYRING 50 ML in DEXTROSE 5% 1,000 ML IV SCH ×2 (10:07→23:08)
[2021-11-19] MEDS: CEFTRIAXONE 1 GM in SODIUM CHLORIDE 0.9% 50ML 50 ML IV SCH (16:19)
[2021-11-19] MEDS: IRON SUCROSE 100 MG in SODIUM CHLORIDE 0.9% 100 ML 100 ML IV SCH (18:26)
[2021-11-20] VITALS (8 sets, daily range): BP systolic 112–142; BP diastolic 61–69
[2021-11-20 05:43] LABS: BASOPHILS # (AUTO) 0.1 (0.0-0.1); BASOPHILS % 0.5 % (0.0-1.0); EOSINOPHILS % 7.8 % (0.0-6.0); HEMATOCRIT 33.1 % (34.2-44.1); HEMOGLOBIN 10.5 g/dL (12.0-16.0); LYMPHOCYTES # (AUTO) 2.1 (1.0-3.2); LYMPHOCYTES % 17.3 % (18.0-39.1); MEAN CORPUSCULAR HEMOGLOBIN 28.8 pg (28-32); MEAN CORPUSCULAR HGB CONC 31.7 g/dL (31-35); MEAN CORPUSCULAR VOLUME 90.9 fL (81-99); MONOCYTES # (AUTO) 0.9 (0.2-0.8); MONOCYTES % 7.6 % (4.4-11.3); NEUTROPHILS # (AUTO) 8.1 (2.1-6.9); NEUTROPHILS % 66.1 % (38.7-80.0); PLATELET COUNT 274 x10e3/uL (140-360); RED BLOOD COUNT 3.64 x10e6/uL (3.6-5.1); RED CELL DISTRIBUTION WIDTH 13.2 % (11.7-14.4)
[2021-11-20 06:10] LABS: ANION GAP 13.7 mmol/L (8-16); CALCIUM 8.9 mg/dL (8.4-10.2); CREATININE, SERUM 0.86 mg/dL (0.57-1.11)
[2021-11-20 06:12] LABS: POTASSIUM 2.7 mmol/L (3.5-5.1)
[2021-11-20] MEDS ORDERED: POTASSIUM CHLORIDE 20MEQ/100ML 100 ML IV ONE (06:30)
[2021-11-20] MEDS ORDERED: POTASSIUM CHLORIDE 20 MEQ TAB CR PO ONE (06:45)
[2021-11-20] MEDS: INSULIN REGULAR, HUMAN 100 UNIT/1 ML SQ SCH ×4 (07:30→22:27)
[2021-11-20] MEDS: SODIUM BICARBONATE 8.4% SYRING 50 ML in DEXTROSE 5% 1,000 ML IV SCH (10:15)
[2021-11-20] MEDS: INSULIN LISPRO 100 UNIT/1 ML 3ML VIAL SQ SCH (17:00)
[2021-11-20] MEDS: CEFTRIAXONE 1 GM in SODIUM CHLORIDE 0.9% 50ML 50 ML IV SCH (17:00)
[2021-11-20] MEDS: INSULIN GLARGINE 100 UNITS/ML VIAL SQ SCH ×2 (17:00→21:00)
[2021-11-20] MEDS ORDERED: SODIUM CHLORIDE 0.9% 250ML 250 ML ONE (18:00)
[2021-11-20] MEDS: IRON SUCROSE 100 MG in SODIUM CHLORIDE 0.9% 100 ML 100 ML IV SCH (22:07)
[2021-11-20] MEDS ORDERED: ACETAMINOPHEN 325 MG TAB PO PRN (23:15)
[2021-11-20] MEDS: SIMETHICONE 80 MG CHEW PO PRN (23:43)
[2021-11-21] VITALS (7 sets, daily range): BP systolic 95–136; BP diastolic 57–69
[2021-11-21] MEDS: SODIUM BICARBONATE 8.4% SYRING 50 ML in DEXTROSE 5% 1,000 ML IV SCH ×2 (01:24→14:32)
[2021-11-21] MEDS ORDERED: ONDANSETRON ODT4 MG PO (07:32)
[2021-11-21] MEDS ORDERED: SENNA LAX8.6 MG PO (07:32)
[2021-11-21] MEDS ORDERED: PANTOPRAZOLE SO40 MG PO (07:32)
[2021-11-21] MEDS ORDERED: SIMETHICONE80 MG PO (07:32)
[2021-11-21] MEDS: INSULIN LISPRO 100 UNIT/1 ML 3ML VIAL SQ SCH ×3 (08:30→16:30)
[2021-11-21] MEDS: INSULIN REGULAR, HUMAN 100 UNIT/1 ML SQ SCH ×4 (08:30→21:00)
[2021-11-21 08:32] LABS: BASOPHILS # (AUTO) 0.1 (0.0-0.1); BASOPHILS % 0.7 % (0.0-1.0); EOSINOPHILS # (AUTO) 1.3 (0.0-0.4); EOSINOPHILS % 10.7 % (0.0-6.0); HEMATOCRIT 33.2 % (34.2-44.1); HEMOGLOBIN 11.2 g/dL (12.0-16.0); LYMPHOCYTES # (AUTO) 2.5 (1.0-3.2); LYMPHOCYTES % 21.7 % (18.0-39.1); MEAN CORPUSCULAR HEMOGLOBIN 29.1 pg (28-32); MEAN CORPUSCULAR HGB CONC 33.7 g/dL (31-35); MEAN CORPUSCULAR VOLUME 86.2 fL (81-99); MONOCYTES # (AUTO) 0.9 (0.2-0.8); MONOCYTES % 8.1 % (4.4-11.3); NEUTROPHILS # (AUTO) 6.7 (2.1-6.9); NEUTROPHILS % 57.8 % (38.7-80.0); PLATELET COUNT 314 x10e3/uL (140-360); RED BLOOD COUNT 3.85 x10e6/uL (3.6-5.1); RED CELL DISTRIBUTION WIDTH 12.7 % (11.7-14.4)
[2021-11-21 09:08] LABS: CALCIUM 9.1 mg/dL (8.4-10.2); CREATININE, SERUM 0.71 mg/dL (0.57-1.11)
[2021-11-21 10:12] LABS: MAGNESIUM 1.9 MG/DL (1.3-2.1); PHOSPHORUS 1.3 MG/DL (2.3-4.7)
[2021-11-21] MEDS ORDERED: POTASSIUM CHLORIDE 20 MEQ TAB CR PO ONE ×2 (11:15→17:00)
[2021-11-21] MEDS: SODIUM BICARBONATE 650 MG TAB PO SCH ×2 (15:00→22:39)
[2021-11-21] MEDS ORDERED: POTASSIUM CHLORIDE 20MEQ/100ML 100 ML IV ONE (15:45)
[2021-11-21] MEDS: CEFTRIAXONE 1 GM in SODIUM CHLORIDE 0.9% 50ML 50 ML IV SCH (16:00)
[2021-11-21] MEDS ORDERED: SODIUM CHLORIDE 0.9% 250ML 250 ML ONE (17:18)
[2021-11-21] MEDS: IRON SUCROSE 100 MG in SODIUM CHLORIDE 0.9% 100 ML 100 ML IV SCH (20:00)
[2021-11-21] MEDS: INSULIN GLARGINE 100 UNITS/ML VIAL SQ SCH (21:00)
[2021-11-22] VITALS (8 sets, daily range): BP systolic 104–128; BP diastolic 56–70
[2021-11-22] MEDS ORDERED: POTASSIUM CHLORIDE 20 MEQ TAB CR PO ONE (00:15)
[2021-11-22] MEDS: SODIUM BICARBONATE 8.4% SYRING 50 ML in DEXTROSE 5% 1,000 ML IV SCH ×3 (03:47→22:04)
[2021-11-22] MEDS: SODIUM BICARBONATE 650 MG TAB PO SCH ×4 (06:00→21:37)
[2021-11-22] MEDS ORDERED: POTASSIUM CHLO10 ME1 PO (07:23)
[2021-11-22] MEDS: INSULIN REGULAR, HUMAN 100 UNIT/1 ML SQ SCH ×4 (08:50→20:08)
[2021-11-22] MEDS: INSULIN LISPRO 100 UNIT/1 ML 3ML VIAL SQ SCH ×3 (08:51→17:07)
[2021-11-22] MEDS: CEFTRIAXONE 1 GM in SODIUM CHLORIDE 0.9% 50ML 50 ML IV SCH (16:44)
[2021-11-22] MEDS: INSULIN GLARGINE 100 UNITS/ML VIAL SQ SCH (20:09)
[2021-11-22] MEDS: IRON SUCROSE 100 MG in SODIUM CHLORIDE 0.9% 100 ML 100 ML IV SCH (20:09)
[2021-11-23] VITALS (7 sets, daily range): BP systolic 92–143; BP diastolic 58–72
[2021-11-23] MEDS: SODIUM BICARBONATE 650 MG TAB PO SCH ×3 (05:27→22:26)
[2021-11-23 06:17] LABS: ANION GAP 10.7 mmol/L (8-16); BLOOD UREA NITROGEN < 5 mg/dL (7-26); CALCIUM 8.2 mg/dL (8.4-10.2); CARBON DIOXIDE 32 mmol/L (22-29); CHLORIDE 103 mmol/L (98-107); CREATININE, SERUM 0.65 mg/dL (0.57-1.11); EST GLOMERULAR FILTRATION RATE 94 ML/MIN (60-); GLUCOSE 200 mg/dL (74-118); POTASSIUM 3.7 mmol/L (3.5-5.1); SODIUM 142 mmol/L (136-145)
[2021-11-23 06:18] LABS: BUN/CREATININE RATIO 8 (6-25)
[2021-11-23] MEDS: INSULIN LISPRO 100 UNIT/1 ML 3ML VIAL SQ SCH ×3 (08:11→16:30)
[2021-11-23] MEDS: INSULIN REGULAR, HUMAN 100 UNIT/1 ML SQ SCH ×4 (08:12→22:15)
[2021-11-23] MEDS ORDERED: POTASSIUM CHLORIDE 20 MEQ TAB CR PO ONE (10:01)
[2021-11-23] MEDS: SIMETHICONE 80 MG CHEW PO PRN (14:49)
[2021-11-23] MEDS: CEFTRIAXONE 1 GM in SODIUM CHLORIDE 0.9% 50ML 50 ML IV SCH (16:00)
[2021-11-23] MEDS: SODIUM BICARBONATE 8.4% SYRING 50 ML in DEXTROSE 5% 1,000 ML IV SCH (19:04)
[2021-11-23] MEDS: IRON SUCROSE 100 MG in SODIUM CHLORIDE 0.9% 100 ML 100 ML IV SCH (22:15)
[2021-11-23] MEDS: INSULIN GLARGINE 100 UNITS/ML VIAL SQ SCH (22:15)
[2021-11-24] VITALS (8 sets, daily range): BP systolic 109–119; BP diastolic 56–67
[2021-11-24 05:41] LABS: BASOPHILS % 0.3 % (0.0-1.0); EOSINOPHILS % 8.7 % (0.0-6.0); HEMATOCRIT 26.6 % (34.2-44.1); HEMOGLOBIN 8.6 g/dL (12.0-16.0); LYMPHOCYTES # (AUTO) 2.5 (1.0-3.2); LYMPHOCYTES % 22.9 % (18.0-39.1); MEAN CORPUSCULAR HEMOGLOBIN 29.2 pg (28-32); MEAN CORPUSCULAR HGB CONC 32.3 g/dL (31-35); MEAN CORPUSCULAR VOLUME 90.2 fL (81-99); MONOCYTES # (AUTO) 1.2 (0.2-0.8); MONOCYTES % 11.4 % (4.4-11.3); NEUTROPHILS % 55.1 % (38.7-80.0); PLATELET COUNT 301 x10e3/uL (140-360); RED BLOOD COUNT 2.95 x10e6/uL (3.6-5.1); RED CELL DISTRIBUTION WIDTH 12.9 % (11.7-14.4)
[2021-11-24] MEDS: SODIUM BICARBONATE 650 MG TAB PO SCH ×3 (06:29→22:46)
[2021-11-24] MEDS: INSULIN REGULAR, HUMAN 100 UNIT/1 ML SQ SCH ×4 (07:49→21:00)
[2021-11-24] MEDS: INSULIN LISPRO 100 UNIT/1 ML 3ML VIAL SQ SCH ×3 (07:50→18:24)
[2021-11-24] MEDS: SODIUM BICARBONATE 8.4% SYRING 50 ML in DEXTROSE 5% 1,000 ML IV SCH ×2 (14:23→21:20)
[2021-11-24] MEDS: CEFTRIAXONE 1 GM in SODIUM CHLORIDE 0.9% 50ML 50 ML IV SCH (17:03)
[2021-11-24] MEDS: IRON SUCROSE 100 MG in SODIUM CHLORIDE 0.9% 100 ML 100 ML IV SCH (20:11)
[2021-11-24] MEDS: INSULIN GLARGINE 100 UNITS/ML VIAL SQ SCH (21:00)
[2021-11-25] VITALS: BP 119/69
[2021-11-25] MEDS: HYDROMORPHONE 1MG/1ML INJ IV PRN ×2 (00:46→12:23)
[2021-11-25 04:00] VITALS: BP 105/58
[2021-11-25 05:20] LABS: BASOPHILS % 0.4 % (0.0-1.0); EOSINOPHILS # (AUTO) 0.9 (0.0-0.4); EOSINOPHILS % 9.1 % (0.0-6.0); HEMATOCRIT 26.9 % (34.2-44.1); HEMOGLOBIN 8.5 g/dL (12.0-16.0); LYMPHOCYTES # (AUTO) 2.5 (1.0-3.2); LYMPHOCYTES % 24.6 % (18.0-39.1); MEAN CORPUSCULAR HEMOGLOBIN 29.1 pg (28-32); MEAN CORPUSCULAR HGB CONC 31.6 g/dL (31-35); MEAN CORPUSCULAR VOLUME 92.1 fL (81-99); MONOCYTES # (AUTO) 1.6 (0.2-0.8); MONOCYTES % 15.9 % (4.4-11.3); NEUTROPHILS # (AUTO) 4.8 (2.1-6.9); NEUTROPHILS % 47.5 % (38.7-80.0); PLATELET COUNT 316 x10e3/uL (140-360); RED BLOOD COUNT 2.92 x10e6/uL (3.6-5.1); RED CELL DISTRIBUTION WIDTH 12.9 % (11.7-14.4)
[2021-11-25] MEDS: SODIUM BICARBONATE 650 MG TAB PO SCH ×2 (05:53→12:15)
[2021-11-25] MEDS: SODIUM BICARBONATE 8.4% SYRING 50 ML in DEXTROSE 5% 1,000 ML IV SCH (05:53)
[2021-11-25] MEDS: INSULIN REGULAR, HUMAN 100 UNIT/1 ML SQ SCH ×3 (07:30→16:31)
[2021-11-25 08:00] VITALS: BP 109/69
[2021-11-25] MEDS: INSULIN LISPRO 100 UNIT/1 ML 3ML VIAL SQ SCH ×3 (08:30→16:31)
[2021-11-25 15:58] VITALS: BP 120/67
[2021-11-25] MEDS: CEFTRIAXONE 1 GM in SODIUM CHLORIDE 0.9% 50ML 50 ML IV SCH (16:31)
[2021-11-25] MEDS ORDERED: ONDANSETRON HCL 4 MG ORAL DISINTEGRATING TAB PO PRN (17:15)
[2021-11-26] MEDS ORDERED: PANTOPRAZOLE SOD 40 MG TABEC PO SCH (07:30)
== END 2021-11-25 18:15 | disposition home health service (06) | DRG 330 ==
LOC: ER 00:44 → ERHOLD 02:52 → MED/SURG 04:40
PROVIDERS: ADMIT Internal Medicine; ATTEND Internal Medicine
PROC: 0DJD8ZZ Inspection of Lower Intestinal Tract, Via Natural or Artificial Opening Endoscopic (ICD-10-PCS; principal; 2021-11-13 11:56)
PROC: 0DTN0ZZ Resection of Sigmoid Colon, Open Approach (ICD-10-PCS; 2021-11-16)
PROC: 0DBP0ZZ Excision of Rectum, Open Approach (ICD-10-PCS; 2021-11-16)
PROC: 0D1K0Z4 Bypass Ascending Colon to Cutaneous, Open Approach (ICD-10-PCS; 2021-11-16)
DX: K56.50 Intestinal adhesions [bands], unspecified as to partial versus complete obstruction (principal); N13.6 Pyonephrosis; N17.9 Acute kidney failure, unspecified; E87.2 Acidosis; E87.0 Hyperosmolality and hypernatremia; I10 Essential (primary) hypertension; E11.9 Type 2 diabetes mellitus without complications; Z90.5 Acquired absence of kidney; E78.5 Hyperlipidemia, unspecified; E86.0 Dehydration; K62.4 Stenosis of anus and rectum; Z20.822 Contact with and (suspected) exposure to COVID-19; E87.6 Hypokalemia; D64.9 Anemia, unspecified; Z79.4 Long term (current) use of insulin
CPT/HCPCS: 36415; 45378; 74018; 74022; 74177; 74270; 80048; 80053; 80061; 81001; 82607; 82746; 82948; 83036; 83540; 83735; 84100; 84132; 84466; 85025; 85045; 85610; 87086; 88304; 88305; 88307; 94799; 96372; 97139; 99251; 99284; J0330; J0696; J1100; J1170; J1756; J1815; J1817; J1885; J2001; J2250; J2270; J2405; J2710; J2765; J3010; J3430; J3480; J7030; J7050; J7070; J7121; J7799; Q9963; Q9967; U0002

== ENCOUNTER → 2022-05-23 | Outpatient (CLI) | payer BC ==
[~2022-05-23] MED LIST changes: +ONDANSETRON ODT4 MG PO; +PANTOPRAZOLE SO40 MG PO; +POTASSIUM CHLO10 ME1 PO; +SENNA LAX8.6 MG PO; +SIMETHICONE80 MG PO
== END ==
LOC: DX 09:06
PROVIDERS: ATTEND Surgery
DX: Z98.0 Intestinal bypass and anastomosis status (principal); Z93.3 Colostomy status
CPT/HCPCS: 74280

== ENCOUNTER 2022-07-09 08:49 | Inpatient (IN) | payer BC ==
[2022-07-07 08:53] LABS: BASOPHILS # (AUTO) 0.1 (0.0-0.1); BASOPHILS % 0.7 % (0.0-1.0); EOSINOPHILS # (AUTO) 0.5 (0.0-0.4); EOSINOPHILS % 6.7 % (0.0-6.0); HEMATOCRIT 41.7 % (34.2-44.1); HEMOGLOBIN 13.1 g/dL (12.0-16.0); LYMPHOCYTES # (AUTO) 2.3 (1.0-3.2); LYMPHOCYTES % 31.1 % (18.0-39.1); MEAN CORPUSCULAR HEMOGLOBIN 29.7 pg (28-32); MEAN CORPUSCULAR HGB CONC 31.4 g/dL (31-35); MEAN CORPUSCULAR VOLUME 94.6 fL (81-99); MONOCYTES # (AUTO) 0.6 (0.2-0.8); MONOCYTES % 7.3 % (4.4-11.3); NEUTROPHILS % 53.9 % (38.7-80.0); PLATELET COUNT 342 x10e3/uL (140-360); RED BLOOD COUNT 4.41 x10e6/uL (3.6-5.1); RED CELL DISTRIBUTION WIDTH 11.5 % (11.7-14.4)
[2022-07-07 09:08] LABS: CALCIUM 9.4 mg/dL (8.4-10.2); CREATININE, SERUM 0.78 mg/dL (0.57-1.11)
[~2022-07-09] VITALS: Ht 154.9 cm; Wt 66.9 kg
[2022-07-09] VITALS (14 sets, daily range): BP systolic 99–134; BP diastolic 59–83
[~2022-07-09 08:49] MED LIST changes: +LISINOPRIL10 MG PO; +XIGDUO XR 10 M1 EAC1
[2022-07-09] MEDS ORDERED: SOD PHOSPHATE/SOD BIPHOSPHATE ENEMA 132 ML BTL PR ONE (09:13)
[2022-07-09] MEDS ORDERED: SEMGLEE (Y100 UNIT/1 SQ (10:03)
[2022-07-09] MEDS ORDERED: MINERAL OIL STERILE 10ML VIAL ONE (11:12)
[2022-07-09] MEDS ORDERED: ROPIVACAINE 246.25 MG, EPINEPHRINE HCL 1:1000 1ML 0.5 MG, CLONIDINE HCL 0.08 MG, KETORO... INJ ONE ×5 (11:15)
[2022-07-09] MEDS ORDERED: KETAMINE HCL INJ 50 MG/ML 10 ML VIAL ONE (12:41)
[2022-07-09] MEDS ORDERED: MIDAZOLAM HCL 2 MG/2 ML VIAL ONE (12:41)
[2022-07-09] MEDS ORDERED: FENTANYL CITRATE/PF 100MCG/2 ML INJ ONE (12:41)
[2022-07-09] MEDS ORDERED: ACETAMINOPHEN 1000 MG/100 ML IV PRN (14:45)
[2022-07-09] MEDS ORDERED: ONDANSETRON HCL INJ 2MG/ML 2ML 2 MG/ML VIAL IV PRN ×2 (14:45)
[2022-07-09] MEDS ORDERED: HYDROMORPHONE 0.2MG/ML-SOD CHL 30ML PCA SYRINGE IV PRN (15:00)
[2022-07-09] MEDS ORDERED: DEXTROSE 50% SYRINGE 50 ML IV PRN (16:15)
[2022-07-09] MEDS: SODIUM CHLORIDE 0.9% 1000ML 1,000 ML IV SCH ×2 (16:33→23:03)
[2022-07-09] MEDS ORDERED: SEVOFLURANE INHAL SOLN 250 ML PEN BTL ONE (17:10)
[2022-07-09] MEDS ORDERED: GLYCOPYRROLATE INJ 0.2 MG/ML VIAL ONE (17:10)
[2022-07-09] MEDS ORDERED: POVIDONE IODINE 0.05% 0.05 % ML PO ONE (17:10)
[2022-07-09] MEDS ORDERED: NEOSTIGMINE 1 MG/ML 10ML VIAL ONE (17:10)
[2022-07-09] MEDS ORDERED: PROPOFOL IV EMULSION 10 MG/ML 20 ML VIAL ONE (17:10)
[2022-07-09] MEDS ORDERED: LIDOCAINE HCL 2% LOCAL INJ 5 ML SDV VIAL INJ ONE (17:10)
[2022-07-09] MEDS ORDERED: ROCURONIUM BROMIDE 10 MG/ML 5ML VIAL IV ONE (17:10)
[2022-07-09] MEDS ORDERED: ONDANSETRON HCL INJ 2MG/ML 2ML 2 MG/ML VIAL ONE (17:10)
[2022-07-09] MEDS ORDERED: EPHEDRINE SULFATE INJ 50 MG/ML VIAL ONE (17:10)
[2022-07-09] MEDS ORDERED: DEXAMETHASONE SOD PHOS INJ 4 MG/ML SDV ONE (17:10)
[2022-07-09] MEDS: INSULIN REGULAR, HUMAN 100 UNIT/1 ML SQ SCH ×2 (17:29→23:04)
[2022-07-10] VITALS (26 sets, daily range): BP systolic 88–115; BP diastolic 46–64
[2022-07-10] MEDS: INSULIN REGULAR, HUMAN 100 UNIT/1 ML SQ SCH ×3 (06:19→17:06)
[2022-07-10 09:08] LABS: BASOPHILS % 0.3 % (0.0-1.0); EOSINOPHILS % 0.1 % (0.0-6.0); HEMATOCRIT 33.2 % (34.2-44.1); HEMOGLOBIN 10.3 g/dL (12.0-16.0); LYMPHOCYTES % 8.7 % (18.0-39.1); MEAN CORPUSCULAR HEMOGLOBIN 29.4 pg (28-32); MEAN CORPUSCULAR VOLUME 94.9 fL (81-99); MONOCYTES % 8.7 % (4.4-11.3); NEUTROPHILS # (AUTO) 9.7 (2.1-6.9); NEUTROPHILS % 81.9 % (38.7-80.0); PLATELET COUNT 300 x10e3/uL (140-360); RED CELL DISTRIBUTION WIDTH 11.5 % (11.7-14.4)
[2022-07-10 09:26] LABS: ANION GAP 12.3 mmol/L (8-16); CALCIUM 8.3 mg/dL (8.4-10.2); CREATININE, SERUM 0.8 mg/dL (0.57-1.11); POTASSIUM 4.3 mmol/L (3.5-5.1)
[2022-07-10] MEDS: SODIUM CHLORIDE 0.9% 1000ML 1,000 ML IV SCH ×2 (10:36→20:30)
[2022-07-10] MEDS ORDERED: DIPHENHYDRAMINE HCL INJ 50 MG/ML VIAL IV PRN (20:15)
[2022-07-11] VITALS (12 sets, daily range): BP systolic 100–128; BP diastolic 46–69
[2022-07-11] MEDS: Morphine 4mg INJECTION 4 MG/ML INJ IV PRN ×2 (05:52→12:27)
[2022-07-11] MEDS: INSULIN REGULAR, HUMAN 100 UNIT/1 ML SQ SCH ×5 (05:53→23:59)
[2022-07-11] MEDS: SODIUM CHLORIDE 0.9% 1000ML 1,000 ML IV SCH ×2 (06:10→16:35)
[2022-07-11 08:22] LABS: ANION GAP 14.3 mmol/L (8-16); BASOPHILS # (AUTO) 0.1 (0.0-0.1); BASOPHILS % 0.7 % (0.0-1.0); CALCIUM 8.2 mg/dL (8.4-10.2); CREATININE, SERUM 0.64 mg/dL (0.57-1.11); EOSINOPHILS # (AUTO) 1.4 (0.0-0.4); EOSINOPHILS % 10.3 % (0.0-6.0); HEMATOCRIT 34.5 % (34.2-44.1); HEMOGLOBIN 10.3 g/dL (12.0-16.0); LYMPHOCYTES # (AUTO) 2.6 (1.0-3.2); LYMPHOCYTES % 18.8 % (18.0-39.1); MEAN CORPUSCULAR HEMOGLOBIN 30.1 pg (28-32); MEAN CORPUSCULAR HGB CONC 29.9 g/dL (31-35); MEAN CORPUSCULAR VOLUME 100.9 fL (81-99); MONOCYTES % 7.6 % (4.4-11.3); NEUTROPHILS # (AUTO) 8.5 (2.1-6.9); NEUTROPHILS % 62.2 % (38.7-80.0); PLATELET COUNT 259 x10e3/uL (140-360); POTASSIUM 4.3 mmol/L (3.5-5.1); RED BLOOD COUNT 3.42 x10e6/uL (3.6-5.1); RED CELL DISTRIBUTION WIDTH 11.9 % (11.7-14.4)
[2022-07-11] MEDS ORDERED: BISACODYL 10 MG SUPP PR ONE (14:30)
[2022-07-11] MEDS: BISACODYL 10 MG SUPP PR SCH ×2 (21:00→21:18)
[2022-07-12] MEDS: Morphine 4mg INJECTION 4 MG/ML INJ IV PRN ×3 (01:00→22:32)
[2022-07-12] MEDS: SODIUM CHLORIDE 0.9% 1000ML 1,000 ML IV SCH ×3 (03:12→22:32)
[2022-07-12 05:22] LABS: BASOPHILS % 0.2 % (0.0-1.0); EOSINOPHILS # (AUTO) 1.4 (0.0-0.4); EOSINOPHILS % 13.2 % (0.0-6.0); HEMATOCRIT 29.2 % (34.2-44.1); HEMOGLOBIN 9.1 g/dL (12.0-16.0); LYMPHOCYTES # (AUTO) 2.3 (1.0-3.2); LYMPHOCYTES % 21.4 % (18.0-39.1); MEAN CORPUSCULAR HEMOGLOBIN 29.5 pg (28-32); MEAN CORPUSCULAR HGB CONC 31.2 g/dL (31-35); MEAN CORPUSCULAR VOLUME 94.8 fL (81-99); MONOCYTES # (AUTO) 0.8 (0.2-0.8); MONOCYTES % 7.5 % (4.4-11.3); NEUTROPHILS # (AUTO) 6.1 (2.1-6.9); NEUTROPHILS % 57.4 % (38.7-80.0); PLATELET COUNT 263 x10e3/uL (140-360); RED BLOOD COUNT 3.08 x10e6/uL (3.6-5.1); RED CELL DISTRIBUTION WIDTH 11.5 % (11.7-14.4)
[2022-07-12 05:43] LABS: ANION GAP 17.2 mmol/L (8-16); CALCIUM 8.1 mg/dL (8.4-10.2); CREATININE, SERUM 0.64 mg/dL (0.57-1.11); POTASSIUM 3.2 mmol/L (3.5-5.1)
[2022-07-12] MEDS: INSULIN REGULAR, HUMAN 100 UNIT/1 ML SQ SCH ×3 (06:00→18:00)
[2022-07-12] MEDS: BISACODYL 10 MG SUPP PR SCH (08:00)
[2022-07-12] MEDS ORDERED: POTASSIUM CHLORIDE 20MEQ/100ML 100 ML IV PRN (09:30)
[2022-07-12 17:36] VITALS: BP 130/67
[2022-07-12 20:00] VITALS: BP 133/65
[2022-07-13] VITALS (7 sets, daily range): BP systolic 108–141; BP diastolic 56–70
[2022-07-13] MEDS: INSULIN REGULAR, HUMAN 100 UNIT/1 ML SQ SCH ×4 (06:00→18:00)
[2022-07-13] MEDS: Morphine 4mg INJECTION 4 MG/ML INJ IV PRN (08:37)
[2022-07-13] MEDS: SODIUM CHLORIDE 0.9% 1000ML 1,000 ML IV SCH ×2 (08:37→22:21)
[2022-07-13] MEDS ORDERED: HYDROCODONE/APAP 5MG-325MG TAB PO PRN (15:45)
[2022-07-14] VITALS (9 sets, daily range): BP systolic 104–137; BP diastolic 53–65
[2022-07-14] MEDS: Morphine 4mg INJECTION 4 MG/ML INJ IV PRN (00:21)
[2022-07-14] MEDS: INSULIN REGULAR, HUMAN 100 UNIT/1 ML SQ SCH ×4 (06:00→18:00)
[2022-07-14 09:36] LABS: ANION GAP 14.6 mmol/L (8-16); CALCIUM 8.7 mg/dL (8.4-10.2); CREATININE, SERUM 0.66 mg/dL (0.57-1.11); POTASSIUM 3.6 mmol/L (3.5-5.1)
[2022-07-14] MEDS: SODIUM CHLORIDE 0.9% 1000ML 1,000 ML IV SCH (16:40)
[2022-07-15] VITALS: BP 119/65
[2022-07-15 04:00] VITALS: BP 114/57
[2022-07-15] MEDS: INSULIN REGULAR, HUMAN 100 UNIT/1 ML SQ SCH ×3 (06:00→12:00)
[2022-07-15 08:20] VITALS: BP 113/61
[2022-07-15 12:53] VITALS: BP 138/61
[2022-07-15] MEDS: SODIUM CHLORIDE 0.9% 1000ML 1,000 ML IV SCH (14:10)
[2022-07-15 16:38] VITALS: BP 132/70
== END 2022-07-15 18:08 | disposition home or self-care (01) | DRG 331 ==
LOC: OR 08:49 → PACU V 14:47 → ICU 16:03 → MED/SURG 07-12 16:38
PROVIDERS: ADMIT Surgery; ATTEND Surgery
PROC: 0DSP0ZZ Reposition Rectum, Open Approach (ICD-10-PCS; principal; 2022-07-09 11:07)
PROC: 0DSN0ZZ Reposition Sigmoid Colon, Open Approach (ICD-10-PCS; 2022-07-09 11:07)
DX: Z43.3 Encounter for attention to colostomy (principal); K66.0 Peritoneal adhesions (postprocedural) (postinfection); E11.9 Type 2 diabetes mellitus without complications; I10 Essential (primary) hypertension; Z20.822 Contact with and (suspected) exposure to COVID-19; Z90.5 Acquired absence of kidney; Z79.4 Long term (current) use of insulin
CPT/HCPCS: 0223U; 36415; 80048; 82948; 85025; 88305; 93005; 94799; J0171; J0694; J0696; J1100; J1200; J1817; J1885; J2001; J2250; J2270; J2405; J2710; J2795; J3010; J3480; J7030